=== PATIENT | male | born 1940 | race Caucasian/White ===

== ENCOUNTER 2022-09-17 16:08 | Inpatient (IN) | payer MEDICARE, SELFPAY ==
--- NOTE | ~2022-09-17 | MR_ITS ---
MRI of the brain Clinical History: CVA Technique: Axial and sagittal T1-weighted images were acquired. These were followed by axial T2-weigh do, diffusion weighted, gradient, and FLAIR images. Following intravenous administration of 20 cc Mu ltiHance gadolinium, T1-weighted fat-sat imaging was performed in the axial, sagittal, and coronal pl anes. Findings: There is extensive restricted diffusion involving the left temporal and parietal lobes exte nding to the left insular cortex, compatible with acute infarct in the left MCA distribution. There a re mild background chronic microvascular ischemic changes in the periventricular white matter. No int racranial hemorrhage identified. Ventricles and subarachnoid spaces are mildly dilated. Orbits are unremarkable. Paranasal sinuses and mastoid air cells are clear. Sagittal midline structures are intact. No abnormal postcontrast enhancement. IMPRESSION: Extensive acute infarct involving left temporal and parietal lobes extending to the left insular skyla ex (left MCA distribution). This correlates with findings on CT scan performed yesterday. Mild chronic microvascular ischemic change and mild generalized atrophy. Reviewed, dictated and finalized at location . IMPRESSION: Extensive acute infarct involving left temporal and parietal lobes extending to the left insular cortex (left MCA distribution). This correlates with findings on CT scan performed yesterday. Mild chronic microvascular ischemic change and mild generalized atrophy.
--- NOTE | ~2022-09-17 | XR_ITS ---
EXAMINATION: XR chest 1V DATE: 09/17/2022 16:36 INDICATION: Cerebrovascular accident. TECHNIQUE: A single frontal view of the chest was obtained. COMPARISON: None. FINDINGS: There are mild airspace opacities in lower lung zones. No pleural effusion or pneumothorax. Cardiomegaly is noted. IMPRESSION: 1. Mild airspace opacities in the lower lung zones, likely atelectasis. 2. Cardiomegaly. Reviewed, dictated and finalized at location A.
--- NOTE | ~2022-09-17 | CT_ITS ---
EXAMINATION: CTA brain carotid DATE: 09/17/2022 17:31 INDICATION: stroke TECHNIQUE: Computed tomographic angiography (CTA) of the head and neck was performed with 200 mL Omni paque-350 intravenous contrast. Automated exposure control and iterative reconstruction technique wer e employed. The dose-length product was 2409.51 mGy-cm. Maximum intensity projection and volume rende red 3D-reconstructions were created by the technologist on a separate workstation. COMPARISON: CT brain, same date. FINDINGS: CTA HEAD: No large vessel occlusion, aneurysm, high flow vascular malformation, nidus or extravasation. Persist ent circulation on the left. Anterior and right posterior communicating arteries not well visua lized. Hypoplastic intradural segment of the right vertebral artery. Decreased parenchymal enhancemen t in the posterior left insula and left temporoparietal region. Patent cerebral veins. CTA NECK: Aortic arch and proximal great vessels: Atherosclerotic calcifications at the visualized aortic arch and proximal great vessels. Right common carotid, carotid bifurcation, and internal carotid artery: Calcified plaque at the bifur cation.There is 0% stenosis of the proximal right internal carotid artery relative to normal distal a rtery lumen diameter (NASCET criteria). Left common carotid, carotid bifurcation, and internal carotid artery: Calcified plaque at the bifurc ation.There is 0% stenosis of the proximal left internal carotid artery relative to normal distal art jose martin lumen diameter (NASCET criteria). Vertebral arteries: No significant plaque or stenosis. Other findings: Patchy groundglass opacity in the right mid lung, incompletely visualized, at the inf erior margin of the [id number]. Calcified left hilar and mediastinal nodes. Right thyroid gland hy podensities, measuring less than 1 cm, no additional imaging warranted. Degenerative changes in the s pine. Congenitally narrow appearing spinal canal. IMPRESSION: 1. No acute large vessel occlusion. No significant vertebral or carotid artery stenosis. 2. Acute left MCA territory infarct. 3. Pulmonary opacities may reflect atelectasis, edema, or infection. Reviewed, dictated and finalized at location K.
--- NOTE | ~2022-09-17 | CT_ITS ---
EXAMINATION: CT brain wo con DATE: 09/17/2022 16:35 INDICATION: Possible stroke TECHNIQUE: Computed tomography (CT) of the head was performed without intravenous contrast. Sagittal and coronal reconstructions were performed. The mA was adjusted according to patient size. Iterative reconstruction technique was employed. The dose-length product was 605.33 mGy-cm. COMPARISON: None FINDINGS: There appears to be loss of tadeo-white matter differentiation along the left temporoparietal region a nd posterior insula suspicious for acute infarct in the left middle cerebral artery vascular distribu tion. No acute intracranial hemorrhage or abnormal extra axial fluid collection. Ventricles are ayush l and symmetric. No mass/mass effect. Intracranial calcified cerebral atherosclerosis is noted. The o rbits, paranasal sinuses and mastoid air cells are normal. IMPRESSION: 1. Loss of tadeo-white matter differentiation in the left temporal parietal region and posterior insul a suspicious for acute infarct in the left middle cerebral artery vascular distribution. Reviewed, dictated and finalized at location B. IMPRESSION: 1. Loss of tadeo-white matter differentiation in the left temporal parietal joe on and posterior insula suspicious for acute infarct in the left middle cerebra l artery vascular distribution.
[2022-09-17 16:10] VITALS: BP 164/88; PULSE 82; RESP 16; TEMP 36.3; O2SAT 98
--- NOTE | 2022-09-17 16:18 | ECG_ITS ---
Measurements Intervals [place] Rate: 72 P: TN: 0 QRS: -53 QRSD: 138 T: -9 QT: 402 QTc: 441 Interpretive Statements ATRIAL FIBRILLATION RIGHT BUNDLE BRANCH BLOCK LEFT ANTERIOR FASCICULAR BLOCK BASELINE ARTIFACT- I, II, III, AVR, AVL, AVF ABNORMAL ECG NO PREVIOUS ECG AVAILABLE FOR COMPARISON Electronically Signed On 09-17-2022 16:51:17 CDT by Raj Flood D.O.
[2022-09-17 16:50] VITALS: BP 160/75; PULSE 77; RESP 22; O2SAT 98
[2022-09-17 17:10] LABS: Alanine Aminotransferase 22 U/L (6-50); Albumin Level 4.3 g/dL (3.5-5.1); Alkaline Phosphatase 81 U/L (38-126); Anion Gap 4 mmol/L (8-16); Aspartate Amino Transferase 30 U/L (17-59); Bilirubin,Total 0.7 mg/dL (0.2-1.3); Blood Urea Nitrogen 12 mg/dL (9-20); Calcium 9.2 mg/dL (8.4-10.2); Carbon Dioxide 30 mmol/L (22-30); Chloride 101 mmol/L (98-107); Estimated Glomerular Filt Rate > 60; Glucose 116 mg/dL (65-110); Potassium 4.2 mmol/L (3.4-5.0); Sodium 135 mmol/L (137-145)
[2022-09-17 17:12] LABS: Basophils Percent Auto 0.3 % (0.2-1.2); Eosinophils Percent Auto 0.5 % (0-4.4); Hematocrit 41.4 % (42.0-52.0); Immature Granulocyte Absolute 0.05 K/mm3 (0.00-0.031); Immature Granulocyte Percent A 0.7 % (0-0.5); Lymphocytes Absolute Auto 1.02 K/mm3 (0.9-3.2); Lymphocytes Percent Auto 13.7 % (18.3-44.2); Mean Corpuscular HGB Conc 31.4 g/dl (32-36); Mean Corpuscular Hemoglobin 27.5 pg (26-34); Mean Corpuscular Volume 87.7 fl (80-100); Monocytes Absolute Auto 0.7 K/mm3 (0.1-0.6); Monocytes Percent Auto 9.9 % (2.6-8.5); Neutrophils Absolute Auto 5.6 K/mm3 (1.3-6.7); Neutrophils Percent Auto 74.9 % (45.5-73.1); Platelet Count Result 264 k/mm3 (150-375); Red Blood Count 4.72 M/mm3 (4.6-6.20); Red Cell Distribution Width 14.3 % (11.5-14.5); White Blood Count 7.5 K/mm3 (4.5-10.0)
[2022-09-17 17:18] LABS: INR 1.6; Prothrombin Time 18.3 Seconds (11.1-14.7)
[2022-09-17 17:19] LABS: Partial Thromboplastin Time 83.7 SECONDS (22.3-36.8)
--- NOTE | 2022-09-17 17:21 | ED.NEUROSD ---
HPI - Neuro Symptoms/Deficit General Chief Complaint: Suspected CVA Stated Complaint: possible stroke Time Seen by Provider: 09/17/22 16:51 History of Present Illness HPI Narrative: 82-year-old male presented to the emergency department for evaluation of suspected stroke. Daughter called the patient today and found that he was altered. Last time the patient was seen normal was Saturday. Patient is having some word finding difficulty but has no focal numbness or weakness. Patient denies any falls or injuries. Patient denies any associated abdominal chest pain or shortness of breath. Related Data Allergies Allergy/AdvReac Type Severity Reaction Status Date / Time No Known Allergies Allergy Mild Unverified 02/15/14 10:54 Review of Systems Review of Systems: All systems reviewed & are unremarkable except as noted in HPI and below Exam Narrative: APPEARANCE: Well appearing, no pain, no distress, well-nourished. HEAD: normocephalic, atraumatic. EYES: PERRLA/EOMI, conjunctivae clear. Visual cortez intact NOSE: Normal no drainage EARS:TMS clear with good light reflex. RESPIRATORY: Airway patent, respirations nonlabored. Clear to auscultation bilaterally, no rales, rhonchi, wheezing. CARDIOVASCULAR: Regular rate and rhythm without murmurs rubs or gallops. ABDOMINAL: Soft, nontender, nondistended, normal bowel sounds MUSCULOSKELETAL: Moves all extremities. Strength/ROM intact, No edema, No calf tenderness. NEURO: Alert. Cranial nerves intact. Reflexes. Patient does have word finding difficulty and was having difficulty reading. Patient was unable to identify objects on the NIH stroke pictures SKIN: Warm, dry. Normal Color Course Course Emergency Course: 82-year-old male presenting to the ED for evaluation of stroke symptoms with his last known normal being Saturday. Patient CT showed evidence of acute infarct in the left middle cerebral artery vascular distribution with loss of tadeo-white matter differentiation in the left temporoparietal region and posterior insular. CTA was ordered and no acute thrombus or large vessel occlusion was identified. Case was discussed with neurology and Dr. Kapadia was comfortable with the plan for admission for MRI. Patient and family were updated on the diagnosis of stroke and treatment plan. Patient is well outside the window for tPA therapy and no large vessel occlusion amenable to embolectomy was identified. Patient was treated with aspirin. Patient was updated on the plan for admission MRI and PT OT. Patient was stable at time of admission. Case was discussed with the hospitalist and patient was a excepted for admission. Vital Signs Vital signs: Vital Signs Temperature 97.3 F L 09/17/22 16:10 Pulse Rate 82 09/17/22 16:10 Respiratory Rate 16 09/17/22 16:10 Blood Pressure 164/88 H 09/17/22 16:10 Pulse Oximetry 98 09/17/22 16:10 Oxygen Delivery Room Air 09/17/22 16:10 Temperature 97.3 F L 09/17/22 16:10 Pulse Rate 77 09/17/22 16:50 Respiratory Rate 22 H 09/17/22 16:50 Blood Pressure 160/75 H 09/17/22 16:50 Pulse Oximetry 98 09/17/22 16:50 Oxygen Delivery Room Air 09/17/22 16:10 MDM - Neuro Symptoms/Deficit Lab Data Attestation: I reviewed the patient's lab results. 09/17/22 16:56 09/17/22 16:56 Labs: Lab Results 09/17/22 09/17/22 09/17/22 Range/Units 16:56 16:56 16:56 WBC 7.5 (4.5-10.0) K/mm3 RBC 4.72 (4.6-6.20) M/mm3 Hgb 13.0 L (14.0-18.0) g/dL Hct 41.4 L (42.0-52.0) % MCV 87.7 (80-100) fl MCH 27.5 (26-34) pg MCHC 31.4 L (32-36) g/dl RDW 14.3 (11.5-14.5) % Plt Count 264 (150-375) k/mm3 MPV 11.0 H (7.4-10.4) fl Immature Gran % (Auto) 0.7 H (0-0.5) % Neut % (Auto) 74.9 H (45.5-73.1) % Lymph % (Auto) 13.7 L (18.3-44.2) % Towns % (Auto) 9.9 H (2.6-8.5) % Eos % (Auto) 0.5 (0-4.4) % Baso % (Auto) 0.3 (0.2-1.2) % Lymph # (Auto) 1.02
[2022-09-17 17:22] LABS: Troponin I < 0.012 ng/mL (0.000-0.034)
--- NOTE | 2022-09-17 19:57 | ED.NEUROSD ---
HPI - Neuro Symptoms/Deficit General Chief Complaint: Suspected CVA Stated Complaint: possible stroke Time Seen by Provider: 09/17/22 16:51 Related Data Allergies Allergy/AdvReac Type Severity Reaction Status Date / Time No Known Allergies Allergy Mild Unverified 02/15/14 10:54 [facility] Past Medical History Medical History (Updated 09/17/22 @ 20:06 by Lesvia Husain NP) Acute CVA (cerebrovascular accident) Atrial fibrillation Cataracts, bilateral Hyperlipidemia Hypertension Neuropathy Spinal stenosis Surgical History Surgical History (Updated 09/17/22 @ 20:20 by Lesvia Husain NP) History of hip replacement, total 4 times History of removal of pigmented skin lesion Family History Family History (Updated 09/17/22 @ 20:15 by Lesvia Husain NP) Sibling Heart failure Social History Social History (Updated 09/17/22 @ 20:13 by Lesvia Husain NP) 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 Course Vital Signs Vital signs: Vital Signs Temperature 36.3 C L 09/17/22 16:10 Pulse Rate 82 09/17/22 16:10 Respiratory Rate 16 09/17/22 16:10 Blood Pressure 164/88 H 09/17/22 16:10 Pulse Oximetry 98 09/17/22 16:10 Oxygen Delivery Room Air 09/17/22 16:10 Temperature 36.3 C L 09/17/22 16:10 Pulse Rate 77 09/17/22 16:50 Respiratory Rate 22 H 09/17/22 16:50 Blood Pressure 160/75 H 09/17/22 16:50 Pulse Oximetry 98 09/17/22 16:50 Oxygen Delivery Room Air 09/17/22 16:10 MDM - Neuro Symptoms/Deficit Lab Data 09/17/22 16:56 09/17/22 16:56 Labs: Lab Results 09/17/22 09/17/22 09/17/22 Range/Units 16:56 16:56 16:56 WBC 7.5 (4.5-10.0) K/mm3 RBC 4.72 (4.6-6.20) M/mm3 Hgb 13.0 L (14.0-18.0) g/dL Hct 41.4 L (42.0-52.0) % MCV 87.7 (80-100) fl MCH 27.5 (26-34) pg MCHC 31.4 L (32-36) g/dl RDW 14.3 (11.5-14.5) % Plt Count 264 (150-375) k/mm3 MPV 11.0 H (7.4-10.4) fl Immature Gran % (Auto) 0.7 H (0-0.5) % Neut % (Auto) 74.9 H (45.5-73.1) % Lymph % (Auto) 13.7 L (18.3-44.2) % [place] % (Auto) 9.9 H (2.6-8.5) % Eos % (Auto) 0.5 (0-4.4) % Baso % (Auto) 0.3 (0.2-1.2) % Lymph # (Auto) 1.02 (0.9-3.2) K/mm3 [place] # (Auto) 0.7 H (0.1-0.6) K/mm3 Eos # (Auto) 0.0 (0-0.3) K/mm3 Baso # (Auto) 0.0 (0.0-0.1) K/mm3 Abs Immat Gran (auto) 0.05 H (0.00-0.031) K/mm3 Absolute Neuts (auto) 5.6 (1.3-6.7) K/mm3 Absolute Nucleated RBC 0.0 (0.0-0.012) K/mm3 Nucleated RBC % 0.0 (0.0-0.2) % PT 18.3 H (11.1-14.7) Seconds INR 1.6 APTT 83.7 H (22.3-36.8) SECONDS Sodium 135 L (137-145) mmol/L Potassium 4.2 (3.4-5.0) mmol/L Chloride 101 (98-107) mmol/L Carbon Dioxide 30 (22-30) mmol/L Anion Gap 4 L (8-16) mmol/L BUN 12 (9-20) mg/dL Creatinine 0.90 (0.7-1.3) mg/dL Estim Creat Clear Calc Not Reportable Estimated GFR > 60 (59 - ) Glucose 116 H (65-110) mg/dL Calcium 9.2 (8.4-10.2) mg/dL Total Bilirubin 0.7 (0.2-1.3) mg/dL AST 30 (17-59) U/L ALT 22 (6-50) U/L Alkaline Phosphatase 81 (38-126) U/L Troponin I < 0.012 (0.000-0.034) ng/mL Total Protein 7.0 (6.3-8.2) g/dL Albumin 4.3 (3.5-5.1) g/dL Discharge Plan Discharge Clinical Impression: Acute CVA (cerebrovascular accident), Atrial fibrillation Patient Disposition: Still a Patient Condition: Stable Follow-up/Referrals: Cory,Saulo Singh MD [Non-Staff] -
--- NOTE | 2022-09-17 20:19 | PC.NURSE ---
attempted report X2 to 3rd med with no answer
--- NOTE | 2022-09-17 20:30 | PC.NURSE ---
Production Staff Worker called and states room for this patient is not clean at this time
[2022-09-17 21:54] VITALS: BP 160/77; PULSE 81; RESP 20; TEMP 36.7; O2SAT 97
[2022-09-17 21:55] VITALS: BMI 39.3
--- NOTE | 2022-09-17 22:00 | ADMGEN ---
This patient, Rufus Scanlon, was admitted to Medical Room 345-01. Patient/family oriented to hospital policies and general routines including ID bracelet, bed and alarms, visiting hours, pain management, procedures, bathroom and other care routines, personal items, smoking policy, room service/diet, and visiting hours. Information on how to activate the Rapid Response Team has been discussed. Patient/Family are encouraged to report perceived risks to care and to ask questions if they do not understand what they are told or what they should do.
[2022-09-18] VITALS (9 sets, daily range): BP systolic 125–172; BP diastolic 71–78; PULSE 69–102; RESP 14–20; TEMP 36.6–36.8; O2SAT 97–100
--- NOTE | 2022-09-18 | ECHO_ITS ---
Patient Info Name: Rufus Scanlon Age: 82 years : 1940 Gender: Male Ht: 69 in Wt: 266 lbs BSA: 2.48 m2 HR: 94 bpm BP: 154 / 78 mmHg Heart Rhythm: Tachycardia Technical Quality: Poor Exam Date: 09/18/2022 11:18 AM Exam Location: [facility] Patient Status: Inpatient Admit Date: 09/17/2022 Staff Ordering Physician: Lesvia Husain NP [employer] Grade Teacher: Rashida Mack RDCS Attending Provider: Addi Lima MD Referring Physician: Lisha AZAR; Exam Type: CA echo dop bubble study w con Study Info Indications - CVA Complete two-dimentional, color flow and Doppler transthoracic echocardiogram is performed with agitated saline and with contrast to opacify the left ventricle and to improve the delineation of the left ventricle endocardial borders. Contrast/Agitated Saline Contrast/Ag. Saline: Agitated Saline Amount: 20.00 ml Administered By: Gabrielle Pavon RDCS Existing IV Access: Yes IV Access Condition: patent with no signs of infiltration Contrast/Ag. Saline: Definity Amount: 7.00 ml Administered By: Gabrielle Pavon RDCS Existing IV Access: Yes IV Access Condition: patent with no signs of infiltration Reason for Poor Study: patient body habitus Summary 1. Left ventricular chamber dimension is normal. 2. Left ventricular systolic function is normal, estimated at >70%. 3. There is mildly increased left ventricular wall thickness. 4. Right ventricular systolic function is normal. 5. Left atrial chamber dimension is severely enlarged. 6. Right atrial chamber dimension is moderately enlarged. 7. Intact interatrial septum visualized by color flow and agitated saline imaging. Negative bubble study. 8. There is mild mitral valve regurgitation. 9. There is mild tricuspid valve regurgitation. 10. There is mild pulmonic regurgitation. 11. The aortic root size at the sinus of Valsalva is dilated. Left Ventricle Left ventricular chamber dimension is normal. Left ventricular systolic function is normal, estimated at >70%. There is mildly increased left ventricular wall thickness. Right Ventricle Right ventricular chamber dimension is normal. Right ventricular systolic function is normal. Left Atria Left atrial chamber dimension is severely enlarged. Right Atria Right atrial chamber dimension is moderately enlarged. Atrial Septum Intact interatrial septum visualized by color flow and agitated saline imaging. Negative bubble study. Aortic Valve The aortic valve is trileaflet. There is no aortic valve stenosis. There is no aortic valve regurgitation. Pulmonic Valve The pulmonic valve is not well visualized. There is mild pulmonic regurgitation. Mitral Valve The mitral valve has normal leaflets. There is no mitral valve stenosis. There is mild mitral valve regurgitation. Tricuspid Valve There is mild tricuspid valve regurgitation. Pericardium/Pleural The pericardium appears epicardial fat pad. There is no pericardial effusion. Aorta The aortic root size at the sinus of Valsalva is dilated. Left Ventricular Outflow Tract Name Value Normal LVOT 2D LVOT
--- NOTE | 2022-09-18 02:08 | PM.IMHP ---
H&P: HPI History of Present Illness Date/Time: 09/17/221954 Chief Complaint: Suspected CVA Narrative: This is an 82-year-old male patient who lives home alone. The patient was brought to the emergency room for suspected stroke. The daughter called the patient today and found that he was altered. The last known normal was on Saturday. The patient was having difficulty finding words. He had no focal weakness.1. Loss of tadeo-white matter differentiation in the left temporal parietal region and posterior insula suspicious for acute infarct in the left middle cerebral artery vascular distribution. Chest x-ray1. Mild airspace opacities in the lower lung zones, likely atelectasis. 2. Cardiomegaly. Head neck CTA read asNo acute large vessel occlusion. No significant vertebral or carotid artery stenosis. 2. Acute left MCA territory infarct. 3. Pulmonary opacities may reflect atelectasis, edema, or infection. Patient is able to answer some questions and his speech is clear for substances however the patient still continues to have word searching. The patient has expressive aphasia. He is able to read without difficulty. However when I asked him his name he is not able to tell me what his name is or his daughter's name.. Head CT was read as?Loss of tadeo-white matter differentiation in the left temporal parietal region and posterior insula suspicious for acute infarct in the left middle cerebral artery vascular distribution. The patient was given aspirin and neurology has been consulted. H&H is 13.0 and 41.4. Patient is being admitted to inpatient status on the date of service of 09/17/2022 Review of Systems Review of Systems: All systems reviewed & are unremarkable except as noted in HPI and below Constitutional: Constitutional: Reports as per HPI and Reports no additional constitutional complaints Eyes: Eyes: Reports as per HPI and Reports no additional eye complaints ENT: Reports system reviewed and no additional complaints, except as documented and Reports Normal hearing present Cardiovascular: Cardiovascular: Reports no additional cardiovascular complaints Respiratory: Respiratory: Reports no additional respiratory complaints and Reports no additional respiratory complaints Gastrointestinal: Gastrointestinal: Reports as per HPI and Reports no additional gastrointestinal complaints Musculoskeletal: Musculoskeletal: Reports no additional musculoskeletal complaints Integumentary/Breasts: Skin/Breast: Reports system reviewed and no additional complaints, except as docu and Reports as per HPI Neurologic: Reports system reviewed and no additional complaints, except as documented, Reports as per HPI and Reports Normal hearing present Psychiatric: Psychiatric: Reports no additional psychiatric complaints and Reports as per HPI Endocrine: Endocrine: Reports no additional endocrine complaints Hematologic/Lymphatic: Hematologic/Lymphatic: Reports no additional hematologic/lymphatic complaints Allergic/Immunologic: Allergic/Immunologic: Reports no additional allergic/immunologic complaints [facility] Past Medical History Medical History (Updated 09/17/22 @ 20:06 by Lesvia Husain NP) Acute CVA (cerebrovascular accident) Atrial fibrillation Cataracts, bilateral Hyperlipidemia Hypertension Neuropathy Spinal stenosis Surgical History Surgical History (Updated 09/17/22 @ 20:20 by Lesvia Husain NP) History of hip replacement, total 4 times History of removal of pigmented skin lesion Family History Family History Sibling Heart failure Social History Social History (Updated 09/18/22 @ 02:17 by Lesvia Husain NP) Social History: The patient has two adopted children and is . He lives alone . He has been to [place] for rehab in the past and would like to go back to [place] if able. 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 Code status full code Smoki
[2022-09-18 06:07] LABS: Basophils Percent Auto 0.5 % (0.2-1.2); Eosinophils Absolute Auto 0.1 K/mm3 (0-0.3); Eosinophils Percent Auto 1.4 % (0-4.4); Hemoglobin 11.5 g/dL (14.0-18.0); Immature Granulocyte Absolute 0.03 K/mm3 (0.00-0.031); Immature Granulocyte Percent A 0.5 % (0-0.5); Lymphocytes Absolute Auto 0.88 K/mm3 (0.9-3.2); Mean Corpuscular HGB Conc 31.9 g/dl (32-36); Mean Corpuscular Hemoglobin 27.5 pg (26-34); Mean Corpuscular Volume 86.1 fl (80-100); Mean Platelet Volume 10.7 fl (7.4-10.4); Monocytes Absolute Auto 0.9 K/mm3 (0.1-0.6); Monocytes Percent Auto 13.5 % (2.6-8.5); Neutrophils Absolute Auto 4.4 K/mm3 (1.3-6.7); Neutrophils Percent Auto 70.1 % (45.5-73.1); Platelet Count Result 229 k/mm3 (150-375); Red Blood Count 4.18 M/mm3 (4.6-6.20); Red Cell Distribution Width 14.2 % (11.5-14.5); White Blood Count 6.3 K/mm3 (4.5-10.0)
[2022-09-18 06:18] LABS: Alanine Aminotransferase 18 U/L (6-50); Albumin Level 3.6 g/dL (3.5-5.1); Alkaline Phosphatase 70 U/L (38-126); Anion Gap 3 mmol/L (8-16); Aspartate Amino Transferase 27 U/L (17-59); Bilirubin,Total 0.8 mg/dL (0.2-1.3); Blood Urea Nitrogen 9 mg/dL (9-20); Calcium 8.8 mg/dL (8.4-10.2); Carbon Dioxide 29 mmol/L (22-30); Chloride 99 mmol/L (98-107); Estimated CRCL calculation 81 ml/min; Estimated Glomerular Filt Rate > 60; Glucose 95 mg/dL (65-110); Lactic Acid Reflex 0.8 mmol/L (0.7-2.0); Magnesium 1.9 mg/dL (1.6-2.3); Sodium 131 mmol/L (137-145)
--- NOTE | 2022-09-18 09:05 | WPDNEURCNPN ---
Assessment and Plan Assessment and plan (1) Acute CVA (cerebrovascular accident): Code(s): I63.9 - Cerebral infarction, unspecified Status: Acute (2) Atrial fibrillation: Code(s): I48.91 - Unspecified atrial fibrillation Status: Acute (3) Hypertension: Code(s): I10 - Essential (primary) hypertension Status: Acute (4) Hyperlipidemia: Code(s): E78.5 - Hyperlipidemia, unspecified Status: Acute Plan Rufus Scanlon is a 82 year old male with a history of atrial fibrillation, hypertension, hyperlipidemia presenting for evaluation of stroke. CT head shows area of hypodensity in the L MCA region, concerning for stroke. CTA was negative. Possibly related to atrial fibrillation in the setting of anticoagulation non-compliance. - MRI brain w/o contrast - Surface echocardiogram - Continue Eliquis 5mg BID - Check LDL, may need higher statin dose - ST/PT/OT Consult date: 09/18/22 Reason for consult: Stroke HPI: Rufus Scanlon is a 82 year old male with a history of atrial fibrillation, hypertension, hyperlipidemia presenting for evaluation of stroke. Patient's last known normal was on 09/15/ Daughter noted that patient was altered on 09/17. Patient was having word finding difficulty but no other significant weakness or focal symptoms. In the ED his blood pressure was in the 170s. CT head showed loss of tadeo-white matter differentiation in the left temporal parietal region and the posterior insula, concerning for acute L MCA infarct. CTA showed no evidence of large vessel occlusion or stenosis. Patient takes Eliquis for his atrial fibrillation. He reports good compliance with this. However, when reviewing his pill box with daughter, there is no Eliquis allotted for the rest of the week. Daughter reports that patient is in charge of his medications. He also takes rosuvastatin 5mg daily. Review of Systems Review of Systems: patient is aphasic ROS unobtainable: Yes unobtainable due to medical condition PMFSH Past Medical History Medical History Acute CVA (cerebrovascular accident) Atrial fibrillation Cataracts, bilateral Hyperlipidemia Hypertension Neuropathy Spinal stenosis Surgical History Surgical History History of hip replacement, total 4 times History of removal of pigmented skin lesion Family History Family History Sibling Heart failure Social History Social History Social History: The patient has two adopted children and is . He lives alone . He has been to [facility] for rehab in the past and would like to go back to [facility] if able. 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 Code status full code Smoking status: Former smoker Alcohol intake: unknown Substance use: unknown Spiritual care concerns: No Meds Home Medications and Allergies Home Medications Medication Instructions Recorded Confirmed Type diltiazem HCl 360 mg 360 mg PO DAILY 09/18/22 09/18/22 History capsule,extended release 24 hr (Cardizem CD) gabapentin 400 mg capsule 400 mg PO TID 09/18/22 09/18/22 History hydralazine 25 mg tablet 25 mg PO QID 09/18/22 09/18/22 History metoprolol succinate 25 mg 25 mg PO DAILY 09/18/22 09/18/22 History tablet,extended release 24 hr rosuvastatin 5 mg tablet 5 mg PO HS 09/18/22 09/18/22 History Allergies Allergy/AdvReac Type Severity Reaction Status Date / Time No Known Allergies Allergy Mild Unverified 02/15/14 10:54 Vital Signs Vital Signs - 24 hr 09/17/22 16:10 09/17/22 16:50 09/17/22 21:54 Temperature 36.3 C L 36.7 C Pulse Rate 82 77 81 Respiratory Rate 16 22 H 20 Blood Pressure 164/88 H 160/75 H 160/77 H Pulse Oximetry 98 98 97 Oxygen Delivery Room Air 09/18/22 00:00 09/18/22 04:00 09/18
[2022-09-18] MEDS: ASPIRIN 81 MG ENTERIC TABLET PO (10:14)
[2022-09-18 10:48] LABS: Cholesterol 106 mg/dL (0-200); HDL Direct 35 mg/dL; Triglycerides 73 mg/dL (<150)
[2022-09-18 11:00] LABS: LDL Cholesterol Direct 54 mg/dL
[2022-09-18] MEDS: PERFLUTREN LIPID MICROSPHERES 1.5 ML VIAL DILUTED TO 10 ML TOTAL VOLUME IV PUSH (11:55)
--- NOTE | 2022-09-18 12:00 | PCSTNOTE ---
Please refer to the Bedside Swallow Evaluation in the EMR. Please note, silent aspiration cannot be ruled out at bedside.
[2022-09-18] MEDS: ROSUVASTATIN 10 MG TABLET 20 MG PO (12:14)
[2022-09-18] MEDS: METOPROLOL SUCCINATE EXT REL 25 MG TABCR PO (12:14)
[2022-09-18] MEDS: GABAPENTIN 400 MG CAPSULE PO ×2 (13:17→20:01)
--- NOTE | 2022-09-18 16:57 | PM.IMPN ---
Progress Note: A&P Assessment and Plan (1) Acute CVA (cerebrovascular accident): Code(s): I63.9 - Cerebral infarction, unspecified Status: Acute Assessment and Plan: He has expressive and receptive aphasia. Abnormal CT head noted on admission patient's last known normal was Saturday. continue pt/ot/ and speech therapy evaluation Swallow study at bedside negative -continue regular consistency and thin liquids Speech therapy for communication continue Neurology has been consulted reportedly patient had a colonoscopy on Saturday of last week and Eliquis had been on hold since 2 days prior. Report of possible colonic mass on colonoscopy per family. Attempting to obtain records. Eliquis 5 mg b.i.d. resumed for now continue to monitor CBC MRI of the brain shows extensive acute infarct involving left temporal and parietal lobes extending to the left insular cortex also noted on CT scan continue blood pressure management. current BP 125/71. Continue metoprolol and resume other antihypertensives. Check lipid panel. Rosuvastatin increased high-dose 20 mg p.o. daily monitor on telemetry (2) Hypertension: Code(s): I10 - Essential (primary) hypertension Status: Chronic Assessment and Plan: P.r.n. hydralazine and continue metoprolol bid. (3) Hyperlipidemia: Code(s): E78.5 - Hyperlipidemia, unspecified Status: Chronic Assessment and Plan: Patient's home medications have not been reconciled. (4) Atrial fibrillation: Code(s): I48.91 - Unspecified atrial fibrillation Status: Acute Assessment and Plan: Patient's anticoagulation has been held due to colonoscopy. Resume Eliquis BID. continue metoprolol. Resume diltiazem. Time Spent With Patient Time with patient: 25 - 35 minutes Subjective Date/time seen: 09/18/22 16:57 Interval history: Patient found sitting up in the bed with granddaughters at bedside. He reports no complaints at this time. Review of Systems Review of Systems: All systems reviewed & are unremarkable except as noted in HPI and below Exam Narrative: General: No acute distress.? Morbidly obese older adult male sitting up in the bed. Nontoxic appearing neuro/Psych: Awake. Patient does not answer most orientation questions. Expressive and receptive aphasia noted. clear speech. No pronator drift, facial droop, tongue deviation, or impaired [id number]. Full strength bilateral upper and lower extremities. gait not tested Skin: Skin fair, warm, dry and intact without rashes or lesions. No open wounds. Good turgor.? HEENT: Normocephalic. Sclera is non-icteric. PERRL. EOM intact without nystagmus. Oral mucosa pink and moist. oropharynx unremarkable Neck: No JVD. Heart: S1 and S2 regular rate and rhythm. No murmurs, gallops, or rubs auscultated. Chest: Respirations even and unlabored. Lung sounds are clear to auscultation without wheezes, rhonchi, or rales. Abdomen: Soft, obese and non-tender to palpation.? Bowel sounds present in all 4 quadrants. No guarding. Extremities:? No edema, erythema or calf tenderness. Grossly normal ROM. Objective Data Vital Signs Vital Signs: Vital Signs - 24 hr 09/17/22 21:54 09/18/22 00:00 09/18/22 04:00 Temperature 98.0 F Pulse Rate 81 69 77 Respiratory Rate 20 Blood Pressure 160/77 H Pulse Oximetry 97 Oxygen Delivery 09/18/22 06:00 09/18/22 07:44 09/18/22 08:00 Temperature 98.0 F Pulse Rate 84 98 Respiratory Rate 20 Blood Pressure 154/78 H Pulse Oximetry 97 Oxygen Delivery Room Air 09/18/22 09:42 09/18/22 12:14 09/18/22 14:00 Temperature 98.2 F Pulse Rate 102 H 80 Respiratory Rate 14 Blood Pressure 125/71 Pulse Oximetry 98 Oxygen Delivery Room Air 09/18/22 16:00 Temperature Pulse Rate 82 Respiratory Rate Blood Pressure Pulse Oximetry Oxygen Delivery Intake/Output Intake/Output: Intake & Output 09/15/22 09/16/22
[2022-09-18] MEDS: APIXABAN 5 MG TABLET PO (20:01)
[2022-09-18 21:00] LABS: Glucose Point of Care 112 mg/dl (65-105)
[2022-09-19] VITALS (10 sets, daily range): BP systolic 121–166; BP diastolic 72–96; PULSE 73–102; RESP 14–20; TEMP 36.1–36.6; O2SAT 94–98
[2022-09-19] MEDS: GABAPENTIN 400 MG CAPSULE PO ×3 (05:49→21:03)
[2022-09-19] MEDS: ROSUVASTATIN 10 MG TABLET 20 MG PO (10:13)
[2022-09-19] MEDS: APIXABAN 5 MG TABLET PO ×2 (10:13→21:03)
[2022-09-19] MEDS: dilTIAZem HCL CD 180 MG CAP.ER.24H 360 MG PO (10:14)
[2022-09-19] MEDS: METOPROLOL SUCCINATE EXT REL 25 MG TABCR PO (10:14)
--- NOTE | 2022-09-19 11:05 | PM.IMPN ---
Progress Note: A&P Assessment and Plan (1) Acute CVA (cerebrovascular accident): Code(s): I63.9 - Cerebral infarction, unspecified Status: Acute Assessment and Plan: He has expressive and receptive aphasia. Abnormal CT head noted on admission patient's last known normal was Saturday. continue pt/ot/ and speech therapy evaluation Swallow study at bedside negative -continue regular consistency and thin liquids Speech therapy for communication continue Neurology consulted and appreciate recommendations. reportedly patient had a colonoscopy on Saturday of last week and Eliquis had been on hold since 2 days prior. Report of possible colonic mass on colonoscopy per family. Attempting to obtain records. Eliquis 5 mg b.i.d. resumed for now continue to monitor CBC MRI of the brain shows extensive acute infarct involving left temporal and parietal lobes extending to the left insular cortex also noted on CT scan Continue blood pressure management. current BP 125/71. Continue metoprolol and resume other antihypertensives. Rosuvastatin increased high-dose 20 mg p.o. daily monitor on telemetry (2) Hypertension: Code(s): I10 - Essential (primary) hypertension Status: Chronic Assessment and Plan: P.r.n. hydralazine and continue metoprolol bid. (3) Hyperlipidemia: Code(s): E78.5 - Hyperlipidemia, unspecified Status: Chronic Assessment and Plan: Patient's home medications have not been reconciled. (4) Atrial fibrillation: Code(s): I48.91 - Unspecified atrial fibrillation Status: Acute Assessment and Plan: Patient's anticoagulation has been held due to colonoscopy. Resume Eliquis BID. continue metoprolol. Resume diltiazem. Time Spent With Patient Time with patient: 15 - 25 minutes Subjective Date/time seen: 09/19/22 11:05 No new complaints or overnight events. Family is at bedside and reports he communicates better with simple questions. Review of Systems Review of Systems: All systems reviewed & are unremarkable except as noted in HPI and below Exam Narrative: General: No acute distress.? Morbidly obese older adult male sitting up in the bed. Nontoxic appearing neuro/Psych: Awake. Patient does not answer most orientation questions. Expressive and receptive aphasia noted. clear speech. No pronator drift, facial droop, tongue deviation, or impaired [id number]. Full strength bilateral upper and lower extremities. gait not tested Skin: Skin fair, warm, dry and intact without rashes or lesions. No open wounds. Good turgor.? HEENT: Normocephalic. Sclera is non-icteric. PERRL. EOM intact without nystagmus. Oral mucosa pink and moist. oropharynx unremarkable Neck: No JVD. Heart: S1 and S2 regular rate and rhythm. No murmurs, gallops, or rubs auscultated. Chest: Respirations even and unlabored. Lung sounds are clear to auscultation without wheezes, rhonchi, or rales. Abdomen: Soft, obese and non-tender to palpation.? Bowel sounds present in all 4 quadrants. No guarding. Extremities:? No edema, erythema or calf tenderness. Grossly normal ROM. Objective Data Vital Signs Vital Signs: Vital Signs - 24 hr 09/18/22 12:14 09/18/22 14:00 09/18/22 16:00 Temperature 98.2 F Pulse Rate 102 H 80 82 Respiratory Rate 14 Blood Pressure 125/71 Pulse Oximetry 98 09/18/22 20:00 09/18/22 21:37 09/19/22 00:00 Temperature 97.9 F Pulse Rate 85 87 90 Respiratory Rate 20 Blood Pressure 172/71 H Pulse Oximetry 100 09/19/22 04:00 09/19/22 06:00 09/19/22 10:14 Temperature 97.9 F Pulse Rate 75 94 87 Respiratory Rate 18 Blood Pressure 166/96 H Pulse Oximetry 94 Intake/Output Intake/Output: Intake & Output 09/16/22 09/17/22 09/18/22 09/19/22 23:59 23:59 23:59 23:59 Intake Total 600 Output Total 400 400 Balance 200 -400 Meds/Results Medications: Active Medications Generic Name Dose Route Start Last Admin
[2022-09-19] MEDS: hydrALAZINE HCL 25 MG TABLET PO ×3 (12:27→21:03)
[2022-09-19 12:28] LABS: Anion Gap 3 mmol/L (8-16); Blood Urea Nitrogen 10 mg/dL (9-20); Carbon Dioxide 30 mmol/L (22-30); Chloride 100 mmol/L (98-107); Estimated CRCL calculation 73 ml/min; Estimated Glomerular Filt Rate > 60; Glucose 115 mg/dL (65-110); Sodium 133 mmol/L (137-145)
[2022-09-19 21:24] LABS: Glucose Point of Care 103 mg/dl (65-105)
[2022-09-20] VITALS (10 sets, daily range): BP systolic 129–142; BP diastolic 62–76; PULSE 64–86; RESP 18; TEMP 36.4–37.7; O2SAT 97
[2022-09-20] MEDS: GABAPENTIN 400 MG CAPSULE PO ×3 (06:11→21:04)
[2022-09-20 06:32] LABS: Hematocrit 40.9 % (42.0-52.0); Mean Corpuscular HGB Conc 31.8 g/dl (32-36); Mean Corpuscular Hemoglobin 27.7 pg (26-34); Mean Platelet Volume 10.9 fl (7.4-10.4); Platelet Count Result 223 k/mm3 (150-375)
[2022-09-20 06:42] LABS: Anion Gap 5 mmol/L (8-16); Blood Urea Nitrogen 12 mg/dL (9-20); Calcium 8.5 mg/dL (8.4-10.2); Carbon Dioxide 28 mmol/L (22-30); Chloride 104 mmol/L (98-107); Estimated CRCL calculation 73 ml/min; Estimated Glomerular Filt Rate > 60; Glucose 97 mg/dL (65-110); Potassium 3.8 mmol/L (3.4-5.0); Sodium 137 mmol/L (137-145)
[2022-09-20] MEDS: METOPROLOL SUCCINATE EXT REL 25 MG TABCR PO (08:26)
[2022-09-20] MEDS: dilTIAZem HCL CD 180 MG CAP.ER.24H 360 MG PO (08:27)
[2022-09-20] MEDS: APIXABAN 5 MG TABLET PO ×2 (08:27→21:04)
[2022-09-20] MEDS: ROSUVASTATIN 10 MG TABLET 20 MG PO (08:27)
[2022-09-20] MEDS: hydrALAZINE HCL 25 MG TABLET PO ×4 (08:27→21:04)
[2022-09-20 08:28] LABS: Glucose Point of Care 109 mg/dl (65-105)
[2022-09-20 12:10] LABS: Glucose Point of Care 146 mg/dl (65-105)
--- NOTE | 2022-09-20 16:37 | PM.IMPN ---
Progress Note: A&P Assessment and Plan (1) Acute CVA (cerebrovascular accident): Code(s): I63.9 - Cerebral infarction, unspecified Status: Acute Assessment and Plan: He has expressive and receptive aphasia. Abnormal CT head noted on admission patient's last known normal was Saturday. continue pt/ot/ and speech therapy evaluation Swallow study at bedside negative -continue regular consistency and thin liquids Speech therapy for communication continue Neurology consulted and appreciate recommendations. reportedly patient had a colonoscopy on Saturday of last week and Eliquis had been on hold since 2 days prior. Report of possible colonic mass on colonoscopy per family. Attempting to obtain records. Eliquis 5 mg b.i.d. resumed for now continue to monitor CBC MRI of the brain shows extensive acute infarct involving left temporal and parietal lobes extending to the left insular cortex also noted on CT scan Continue blood pressure management. current BP 125/71. Continue metoprolol and resume other antihypertensives. Rosuvastatin increased high-dose 20 mg p.o. daily monitor on telemetry Patient plans to be discharged into rehab facility. Awaiting placement at this time. Continuing therapy. (2) Hypertension: Code(s): I10 - Essential (primary) hypertension Status: Chronic Assessment and Plan: P.r.n. hydralazine and continue metoprolol bid. (3) Hyperlipidemia: Code(s): E78.5 - Hyperlipidemia, unspecified Status: Chronic Assessment and Plan: Patient's home medications have not been reconciled. (4) Atrial fibrillation: Code(s): I48.91 - Unspecified atrial fibrillation Status: Acute Assessment and Plan: Patient's anticoagulation has been held due to colonoscopy. Resume Eliquis BID. continue metoprolol. Resume diltiazem. Subjective Date/time seen: 09/20/22 16:37 Interval history: patient is unable to answer many questions and it appears he is having difficulty finding his words he is able to follow directions and complete tasks when you ask him to but when he answers questions his responses are not appropriate to questions being asked. patient has word salad . Review of Systems Review of Systems: All systems reviewed & are unremarkable except as noted in HPI and below Exam Narrative: GENERAL: Comfortable, no acute distress HENMT: moist mucous membranes EYES: EOM intact b/l NECK: no lymphadenopathy RESPIRATORY: clear to auscultation CARDIO: RRR GI: soft, nontender, bowel sounds present SKIN: no rashes EXTREMITIES: no edema, redness or tenderness NEURO: strength 5/5 bilaterally upper and lower extremities, no facial droop Objective Data Vital Signs Vital Signs: Vital Signs - 24 hr 09/19/22 20:00 09/19/22 20:00 09/19/22 21:36 Temperature 97.0 F L Pulse Rate 75 82 73 Respiratory Rate 14 20 Blood Pressure 121/72 Pulse Oximetry 96 98 Oxygen Delivery Room Air 09/20/22 00:00 09/20/22 04:00 09/20/22 06:00 Temperature 97.5 F L Pulse Rate 67 64 69 Respiratory Rate 18 Blood Pressure 142/76 H Pulse Oximetry 97 Oxygen Delivery 09/20/22 08:26 09/20/22 08:20 09/20/22 08:00 Temperature Pulse Rate 70 86 Respiratory Rate Blood Pressure Pulse Oximetry Oxygen Delivery Room Air 09/20/22 16:04 Temperature 100 F H Pulse Rate 70 Respiratory Rate 18 Blood Pressure 129/62 Pulse Oximetry 97 Oxygen Delivery Intake/Output Intake/Output: Intake & Output 09/17/22 09/18/22 09/19/22 09/20/22 23:59 23:59 23:59 23:59 Intake Total 600 1220 980 Output Total 982 736 8200 Balance 200 820 -370 Meds/Results Medications: Active Medications Generic Name Dose Route Start Last Admin Trade Name Freq PRN Reason Stop Dose Admin Apixaban 5 mg 09/18/22 21:00 09/20/22 08:27 Apixaban 5 Mg Tablet PO 5 mg Q12HR GABRIELLE Administration Diltiazem HCl 360 mg 09/19
[2022-09-21] VITALS (11 sets, daily range): BP systolic 110–151; BP diastolic 59–69; PULSE 62–101; RESP 18–20; TEMP 36.2–36.8; O2SAT 96–99
[2022-09-21] MEDS: GABAPENTIN 400 MG CAPSULE PO ×3 (05:18→21:34)
[2022-09-21 08:16] LABS: Glucose Point of Care 98 mg/dl (65-105)
[2022-09-21] MEDS: APIXABAN 5 MG TABLET PO ×2 (08:24→21:34)
[2022-09-21] MEDS: METOPROLOL SUCCINATE EXT REL 25 MG TABCR PO (08:24)
[2022-09-21] MEDS: hydrALAZINE HCL 25 MG TABLET PO ×4 (08:25→21:34)
[2022-09-21] MEDS: ROSUVASTATIN 10 MG TABLET 20 MG PO (08:25)
[2022-09-21] MEDS: dilTIAZem HCL CD 180 MG CAP.ER.24H 360 MG PO (08:25)
[2022-09-21 12:39] LABS: Glucose Point of Care 99 mg/dl (65-105)
--- NOTE | 2022-09-21 15:36 | PM.IMPN ---
Progress Note: A&P Assessment and Plan (1) Acute CVA (cerebrovascular accident): Code(s): I63.9 - Cerebral infarction, unspecified Status: Acute Assessment and Plan: He has expressive and receptive aphasia. Abnormal CT head noted on admission patient's last known normal was Saturday. continue pt/ot/ and speech therapy evaluation Swallow study at bedside negative -continue regular consistency and thin liquids Speech therapy for communication continue Neurology consulted and appreciate recommendations. reportedly patient had a colonoscopy on Saturday of last week and Eliquis had been on hold since 2 days prior. Report of possible colonic mass on colonoscopy per family. Attempting to obtain records. Eliquis 5 mg b.i.d. resumed for now continue to monitor CBC MRI of the brain shows extensive acute infarct involving left temporal and parietal lobes extending to the left insular cortex also noted on CT scan Continue blood pressure management. current BP 125/71. Continue metoprolol and resume other antihypertensives. Rosuvastatin increased high-dose 20 mg p.o. daily monitor on telemetry Patient plans to be discharged into rehab facility. Awaiting placement at this time. Continuing therapy. (2) Hypertension: Code(s): I10 - Essential (primary) hypertension Status: Chronic Assessment and Plan: P.r.n. hydralazine and continue metoprolol bid. (3) Hyperlipidemia: Code(s): E78.5 - Hyperlipidemia, unspecified Status: Chronic Assessment and Plan: Patient's home medications have not been reconciled. (4) Atrial fibrillation: Code(s): I48.91 - Unspecified atrial fibrillation Status: Acute Assessment and Plan: Patient's anticoagulation has been held due to colonoscopy. Resume Eliquis BID. continue metoprolol. Resume diltiazem. Subjective Date/time seen: 09/21/22 15:36 Interval history: Patient's son-in-law in for entering the room at bedside. Patient doing well today with no new complaints. Patient still having aphasia. Review of Systems Review of Systems: All systems reviewed & are unremarkable except as noted in HPI and below Exam Narrative: GENERAL: Comfortable, no acute distress HENMT: moist mucous membranes EYES: EOM intact b/l NECK: no lymphadenopathy RESPIRATORY: clear to auscultation CARDIO: RRR GI: soft, nontender, bowel sounds present SKIN: no rashes EXTREMITIES: no edema, redness or tenderness NEURO: strength 5/5 bilaterally upper and lower extremities, no facial droop Objective Data Vital Signs Vital Signs: Vital Signs - 24 hr 09/20/22 16:04 09/20/22 16:00 09/20/22 20:00 Temperature 100 F H Pulse Rate 70 78 70 Respiratory Rate 18 18 Blood Pressure 129/62 Pulse Oximetry 97 97 Oxygen Delivery Room Air 09/20/22 22:35 09/20/22 20:00 09/21/22 00:00 Temperature 98.0 F Pulse Rate 71 78 78 Respiratory Rate 18 Blood Pressure 133/76 Pulse Oximetry 97 Oxygen Delivery 09/21/22 04:00 09/21/22 06:00 09/21/22 08:24 Temperature 97.1 F L Pulse Rate 70 75 76 Respiratory Rate 20 Blood Pressure 151/69 H Pulse Oximetry 99 Oxygen Delivery 09/21/22 08:00 09/21/22 08:00 09/21/22 12:00 Temperature Pulse Rate 73 63 Respiratory Rate Blood Pressure Pulse Oximetry Oxygen Delivery Room Air 09/21/22 14:00 Temperature 97.2 F L Pulse Rate 68 Respiratory Rate 20 Blood Pressure 110/62 Pulse Oximetry 98 Oxygen Delivery Intake/Output Intake/Output: Intake & Output 09/18/22 09/19/22 09/20/22 09/21/22 23:59 23:59 23:59 23:59 Intake Total 600 1220 1460 1000 Output Total 043 750 0533 800 Balance 200 820 -190 200 Meds/Results Medications: Active Medications Generic Name Dose Route Start Last Admin Trade Name Freq PRN Reason Stop Dose Admin Apixaban 5 mg 09/18/22 21:00 09/21/22 08:24 Apixaban 5 Mg Tablet PO 5 mg Q12HR GABRIELLE
[2022-09-21 17:02] LABS: Glucose Point of Care 94 mg/dl (65-105)
[2022-09-22] VITALS (10 sets, daily range): BP systolic 117–134; BP diastolic 50–75; PULSE 65–89; RESP 16–20; TEMP 35.6–36.9; O2SAT 95–100
[2022-09-22] MEDS: GABAPENTIN 400 MG CAPSULE PO ×3 (05:45→20:33)
[2022-09-22 06:05] LABS: Hematocrit 37.6 % (42.0-52.0); Hemoglobin 12.2 g/dL (14.0-18.0); Mean Corpuscular HGB Conc 32.4 g/dl (32-36); Mean Corpuscular Hemoglobin 27.1 pg (26-34); Mean Corpuscular Volume 83.6 fl (80-100); Mean Platelet Volume 10.8 fl (7.4-10.4); Platelet Count Result 262 k/mm3 (150-375); White Blood Count 9.3 K/mm3 (4.5-10.0)
[2022-09-22 06:13] LABS: Alanine Aminotransferase 40 U/L (6-50); Albumin Level 3.6 g/dL (3.5-5.1); Alkaline Phosphatase 76 U/L (38-126); Anion Gap 5 mmol/L (8-16); Aspartate Amino Transferase 58 U/L (17-59); Bilirubin,Total 0.7 mg/dL (0.2-1.3); Blood Urea Nitrogen 15 mg/dL (9-20); Calcium 8.7 mg/dL (8.4-10.2); Carbon Dioxide 27 mmol/L (22-30); Chloride 103 mmol/L (98-107); Estimated CRCL calculation 66 ml/min; Estimated Glomerular Filt Rate > 60; Glucose 113 mg/dL (65-110); Potassium 3.9 mmol/L (3.4-5.0); Sodium 135 mmol/L (137-145)
[2022-09-22] MEDS: METOPROLOL SUCCINATE EXT REL 25 MG TABCR PO (08:02)
[2022-09-22] MEDS: dilTIAZem HCL CD 180 MG CAP.ER.24H 360 MG PO (08:03)
[2022-09-22] MEDS: APIXABAN 5 MG TABLET PO ×2 (08:03→20:33)
[2022-09-22] MEDS: hydrALAZINE HCL 25 MG TABLET PO ×4 (08:03→20:33)
[2022-09-22] MEDS: ROSUVASTATIN 10 MG TABLET 20 MG PO (08:03)
[2022-09-22 08:47] LABS: Glucose Point of Care 116 mg/dl (65-105)
[2022-09-22 12:22] LABS: Glucose Point of Care 118 mg/dl (65-105)
--- NOTE | 2022-09-22 16:37 | PM.IMPN ---
Progress Note: A&P Assessment and Plan (1) Acute CVA (cerebrovascular accident): Code(s): I63.9 - Cerebral infarction, unspecified Status: Acute Assessment and Plan: He has expressive and receptive aphasia. Abnormal CT head noted on admission patient's last known normal was Saturday. continue pt/ot/ and speech therapy evaluation Swallow study at bedside negative -continue regular consistency and thin liquids Speech therapy for communication continue Neurology consulted and appreciate recommendations. reportedly patient had a colonoscopy on Saturday of last week and Eliquis had been on hold since 2 days prior. Report of possible colonic mass on colonoscopy per family. Attempting to obtain records. Eliquis 5 mg b.i.d. resumed for now continue to monitor CBC MRI of the brain shows extensive acute infarct involving left temporal and parietal lobes extending to the left insular cortex also noted on CT scan Continue blood pressure management. current BP 125/71. Continue metoprolol and resume other antihypertensives. Rosuvastatin increased high-dose 20 mg p.o. daily monitor on telemetry Patient plans to be discharged into rehab facility. Awaiting placement at this time. Continuing therapy. (2) Hypertension: Code(s): I10 - Essential (primary) hypertension Status: Chronic Assessment and Plan: P.r.n. hydralazine and continue metoprolol bid. (3) Hyperlipidemia: Code(s): E78.5 - Hyperlipidemia, unspecified Status: Chronic Assessment and Plan: Patient's home medications have not been reconciled. (4) Atrial fibrillation: Code(s): I48.91 - Unspecified atrial fibrillation Status: Acute Assessment and Plan: Patient's anticoagulation has been held due to colonoscopy. Resume Eliquis BID. continue metoprolol. Resume diltiazem. Subjective Date/time seen: 09/22/22 16:37 Interval history: Patient doing well with today with no new complaints he is still waiting placement. Patient with prior return knee and other family members at bedside. Review of Systems Review of Systems: All systems reviewed & are unremarkable except as noted in HPI and below Exam Narrative: GENERAL: Comfortable, no acute distress HENMT: moist mucous membranes EYES: EOM intact b/l NECK: no lymphadenopathy RESPIRATORY: clear to auscultation CARDIO: RRR GI: soft, nontender, bowel sounds present SKIN: no rashes EXTREMITIES: no edema, redness or tenderness NEURO: strength 5/5 bilaterally upper and lower extremities, no facial droop Objective Data Vital Signs Vital Signs: Vital Signs - 24 hr 09/21/22 20:23 09/21/22 20:00 09/21/22 22:29 Temperature 98.2 F Pulse Rate 101 H 101 H 62 Respiratory Rate 18 18 Blood Pressure 117/59 L Pulse Oximetry 97 97 96 Oxygen Delivery Room Air 09/21/22 20:00 09/22/22 00:00 09/22/22 04:00 Temperature Pulse Rate 85 87 89 Respiratory Rate Blood Pressure Pulse Oximetry Oxygen Delivery 09/22/22 05:08 09/22/22 08:02 09/22/22 08:00 Temperature 98 F Pulse Rate 67 85 Respiratory Rate 20 Blood Pressure 123/75 Pulse Oximetry 97 Oxygen Delivery Room Air 09/22/22 08:00 09/22/22 12:00 09/22/22 14:00 Temperature 96.1 F L Pulse Rate 86 71 65 Respiratory Rate 20 Blood Pressure 117/60 Pulse Oximetry 100 Oxygen Delivery 09/22/22 16:00 Temperature Pulse Rate 66 Respiratory Rate Blood Pressure Pulse Oximetry Oxygen Delivery Intake/Output Intake/Output: Intake & Output 09/19/22 09/20/22 09/21/22 09/22/22 23:59 23:59 23:59 23:59 Intake Total 1220 1460 1360 900 Output Total 400 1650 800 500 Balance 820 -190 560 400 Meds/Results Medications: Active Medications Generic Name Dose Route Start Last Admin Trade Name Freq PRN Reason Stop Dose Admin Apixaban 5 mg 09/18/22 21:00 09/22/22 08:03 Apixaban 5 Mg Tablet PO 5 mg Q12
[2022-09-22 17:09] LABS: Glucose Point of Care 119 mg/dl (65-105)
[2022-09-23] VITALS (11 sets, daily range): BP systolic 111–146; BP diastolic 62–74; PULSE 51–81; RESP 16–20; TEMP 36.1–36.6; O2SAT 95–97
[2022-09-23] MEDS: GABAPENTIN 400 MG CAPSULE PO ×3 (06:01→22:35)
[2022-09-23 08:28] LABS: Glucose Point of Care 112 mg/dl (65-105)
[2022-09-23] MEDS: dilTIAZem HCL CD 180 MG CAP.ER.24H 360 MG PO (09:20)
[2022-09-23] MEDS: APIXABAN 5 MG TABLET PO ×2 (09:20→22:35)
[2022-09-23] MEDS: hydrALAZINE HCL 25 MG TABLET PO ×4 (09:21→22:35)
[2022-09-23] MEDS: ROSUVASTATIN 10 MG TABLET 20 MG PO (09:21)
[2022-09-23] MEDS: METOPROLOL SUCCINATE EXT REL 25 MG TABCR PO (09:24)
[2022-09-23 12:31] LABS: Glucose Point of Care 104 mg/dl (65-105)
--- NOTE | 2022-09-23 15:43 | PM.IMPN ---
Progress Note: A&P Assessment and Plan (1) Acute CVA (cerebrovascular accident): Code(s): I63.9 - Cerebral infarction, unspecified Status: Acute Assessment and Plan: He has expressive and receptive aphasia. Abnormal CT head noted on admission patient's last known normal was Saturday. continue pt/ot/ and speech therapy evaluation Swallow study at bedside negative -continue regular consistency and thin liquids Speech therapy for communication continue Neurology consulted and appreciate recommendations. reportedly patient had a colonoscopy on Saturday of last week and Eliquis had been on hold since 2 days prior. Report of possible colonic mass on colonoscopy per family. Attempting to obtain records. Eliquis 5 mg b.i.d. resumed for now continue to monitor CBC MRI of the brain shows extensive acute infarct involving left temporal and parietal lobes extending to the left insular cortex also noted on CT scan Continue blood pressure management. current BP 125/71. Continue metoprolol and resume other antihypertensives. Rosuvastatin increased high-dose 20 mg p.o. daily monitor on telemetry Patient plans to be discharged into rehab facility. Awaiting placement at this time. Continuing therapy. (2) Hypertension: Code(s): I10 - Essential (primary) hypertension Status: Chronic Assessment and Plan: P.r.n. hydralazine and continue metoprolol bid. (3) Hyperlipidemia: Code(s): E78.5 - Hyperlipidemia, unspecified Status: Chronic Assessment and Plan: Patient's home medications have not been reconciled. (4) Atrial fibrillation: Code(s): I48.91 - Unspecified atrial fibrillation Status: Acute Assessment and Plan: Patient's anticoagulation has been held due to colonoscopy. Resume Eliquis BID. continue metoprolol. Resume diltiazem. Subjective Date/time seen: 09/23/22 15:43 Interval history: Patient stable and awaiting placement. Should be able to be discharged tomorrow. Review of Systems Review of Systems: ROS unobtainable: Yes unobtainable due to mental status Exam Narrative: GENERAL: Comfortable, no acute distress HENMT: moist mucous membranes EYES: EOM intact b/l NECK: no lymphadenopathy RESPIRATORY: clear to auscultation CARDIO: RRR GI: soft, nontender, bowel sounds present SKIN: no rashes EXTREMITIES: no edema, redness or tenderness NEURO: strength 5/5 bilaterally upper and lower extremities, no facial droop Objective Data Vital Signs Vital Signs: Vital Signs - 24 hr 09/22/22 16:00 09/22/22 20:08 09/22/22 20:00 Temperature 98.5 F Pulse Rate 66 80 80 Respiratory Rate 16 16 Blood Pressure 134/50 L Pulse Oximetry 95 95 Oxygen Delivery Room Air 09/22/22 20:00 09/23/22 00:00 09/23/22 04:58 Temperature 97.2 F L Pulse Rate 76 81 74 Respiratory Rate 16 Blood Pressure 146/74 H Pulse Oximetry 97 Oxygen Delivery 09/23/22 04:00 09/23/22 09:24 09/23/22 09:20 Temperature Pulse Rate 74 77 77 Respiratory Rate Blood Pressure 139/73 Pulse Oximetry Oxygen Delivery 09/23/22 08:00 09/23/22 08:00 09/23/22 12:00 Temperature Pulse Rate 72 68 Respiratory Rate Blood Pressure Pulse Oximetry Oxygen Delivery Room Air Intake/Output Intake/Output: Intake & Output 09/20/22 09/21/22 09/22/22 09/23/22 23:59 23:59 23:59 23:59 Intake Total 1460 1360 1140 730 Output Total 1650 800 950 350 Balance -190 560 190 380 Meds/Results Medications: Active Medications Generic Name Dose Route Start Last Admin Trade Name Freq PRN Reason Stop Dose Admin Apixaban 5 mg 09/18/22 21:00 09/23/22 09:20 Apixaban 5 Mg Tablet PO 5 mg Q12HR GABRIELLE Administration Diltiazem HCl 360 mg 09/19/22 09:00 09/23/22 09:20 Diltiazem Hcl Cd 180 Mg Cap.Er.24h PO 360 mg QAM GABRIELLE Administration Gabapentin 400 mg 09/18/22 14:00 09/23/22 13:28 Gabapenti
[2022-09-23 17:20] LABS: Glucose Point of Care 109 mg/dl (65-105)
[2022-09-24] VITALS (13 sets, daily range): BP systolic 125–159; BP diastolic 56–80; PULSE 62–78; RESP 16–20; TEMP 36.5–37.2; O2SAT 95–97
[2022-09-24] MEDS: GABAPENTIN 400 MG CAPSULE PO ×3 (05:37→20:03)
[2022-09-24] MEDS: APIXABAN 5 MG TABLET PO ×2 (08:57→20:03)
[2022-09-24] MEDS: METOPROLOL SUCCINATE EXT REL 25 MG TABCR PO (08:57)
[2022-09-24] MEDS: ROSUVASTATIN 10 MG TABLET 20 MG PO (08:57)
[2022-09-24] MEDS: dilTIAZem HCL CD 180 MG CAP.ER.24H 360 MG PO (08:57)
[2022-09-24] MEDS: hydrALAZINE HCL 25 MG TABLET PO ×4 (08:57→20:03)
--- NOTE | 2022-09-24 14:13 | PM.IMPN ---
Progress Note: A&P Assessment and Plan (1) Acute CVA (cerebrovascular accident): Code(s): I63.9 - Cerebral infarction, unspecified Status: Acute Assessment and Plan: He has expressive and receptive aphasia. Abnormal CT head noted on admission patient's last known normal was Saturday. continue pt/ot/ and speech therapy evaluation Swallow study at bedside negative -continue regular consistency and thin liquids Speech therapy for communication Neurology consulted and appreciate recommendations. reportedly patient had a colonoscopy on Saturday of last week and Eliquis had been on hold since 2 days prior. Report of possible colonic mass on colonoscopy per family. Attempting to obtain records. Eliquis 5 mg b.i.d. resumed for now continue to monitor CBC MRI of the brain shows extensive acute infarct involving left temporal and parietal lobes extending to the left insular cortex also noted on CT scan Continue blood pressure management. current BP 125/71. Continue metoprolol and resume other antihypertensives. Rosuvastatin increased high-dose 20 mg p.o. daily monitor on telemetry Patient plans to be discharged into rehab facility. Awaiting placement at this time. Continuing therapy. (2) Hypertension: Code(s): I10 - Essential (primary) hypertension Status: Chronic Assessment and Plan: P.r.n. hydralazine and metoprolol bid. (3) Hyperlipidemia: Code(s): E78.5 - Hyperlipidemia, unspecified Status: Chronic Assessment and Plan: Crestor 20 mg daily (4) Atrial fibrillation: Code(s): I48.91 - Unspecified atrial fibrillation Status: Acute Assessment and Plan: Patient's anticoagulation has been held due to colonoscopy. Resume Eliquis BID. continue metoprolol. Resume diltiazem. Subjective Date/time seen: 09/24/22 14:13 Interval history: Patient stable and awaiting placement. I was told by care coordination that patient will receive a bed tomorrow. Review of Systems Review of Systems: All systems reviewed & are unremarkable except as noted in HPI and below Exam Narrative: GENERAL: Comfortable, no acute distress HENMT: moist mucous membranes EYES: EOM intact b/l NECK: no lymphadenopathy RESPIRATORY: clear to auscultation CARDIO: RRR GI: soft, nontender, bowel sounds present SKIN: no rashes EXTREMITIES: no edema, redness or tenderness NEURO: strength 5/5 bilaterally upper and lower extremities, no facial droop Objective Data Vital Signs Vital Signs: Vital Signs - 24 hr 09/23/22 16:00 09/23/22 21:06 09/23/22 20:00 Temperature 97.9 F Pulse Rate 56 L 70 70 Respiratory Rate 18 18 Blood Pressure 125/63 Pulse Oximetry 97 97 Oxygen Delivery Room Air 09/23/22 20:00 09/24/22 00:00 09/24/22 00:45 Temperature Pulse Rate 69 75 66 Respiratory Rate Blood Pressure Pulse Oximetry 95 Oxygen Delivery 09/24/22 04:00 09/24/22 05:10 09/24/22 08:57 Temperature 97.7 F Pulse Rate 62 70 74 Respiratory Rate 16 Blood Pressure 159/80 H Pulse Oximetry 97 Oxygen Delivery 09/24/22 08:57 09/24/22 09:13 09/24/22 08:57 Temperature Pulse Rate 74 70 Respiratory Rate Blood Pressure 125/78 Pulse Oximetry 96 Oxygen Delivery Room Air Room Air 09/24/22 14:00 Temperature 98.0 F Pulse Rate 70 Respiratory Rate 20 Blood Pressure 130/65 Pulse Oximetry 97 Oxygen Delivery Intake/Output Intake/Output: Intake & Output 09/21/22 09/22/22 09/23/22 09/24/22 23:59 23:59 23:59 23:59 Intake Total 1360 1140 970 490 Output Total 883 478 2196 300 Balance 560 190 -130 190 Meds/Results Medications: Active Medications Generic Name Dose Route Start Last Admin Trade Name Freq PRN Reason Stop Dose Admin Apixaban 5 mg 09/18/22 21:00 09/24/22 08:57 Apixaban 5 Mg Tablet PO 5 mg Q12HR GABRIELLE Administration Diltiazem HCl 360 mg 09/19/22 09:00 09/24/22 08:57
[2022-09-25] VITALS: PULSE 67
[2022-09-25 02:45] VITALS: PULSE 68; O2SAT 95
[2022-09-25 04:00] VITALS: PULSE 70
[2022-09-25 05:17] VITALS: BP 137/69; PULSE 65; RESP 18; TEMP 37.2; O2SAT 97
[2022-09-25] MEDS: GABAPENTIN 400 MG CAPSULE PO ×2 (06:07→14:16)
[2022-09-25 08:21] VITALS: BP 135/57; PULSE 77
[2022-09-25] MEDS: dilTIAZem HCL CD 180 MG CAP.ER.24H 360 MG PO (08:23)
[2022-09-25] MEDS: APIXABAN 5 MG TABLET PO (08:23)
[2022-09-25 08:24] VITALS: PULSE 77
[2022-09-25] MEDS: ROSUVASTATIN 10 MG TABLET 20 MG PO (08:24)
[2022-09-25] MEDS: METOPROLOL SUCCINATE EXT REL 25 MG TABCR PO (08:24)
[2022-09-25] MEDS: hydrALAZINE HCL 25 MG TABLET PO ×2 (08:24→14:16)
--- NOTE | 2022-09-25 08:52 | PM.DS ---
DS: Admitting Diagnosis Discharge Date 09/25/22 Admitting Diagnosis CVA DS: Discharge Diagnosis Discharge Diagnosis (1) Acute CVA (cerebrovascular accident): Code(s): I63.9 - Cerebral infarction, unspecified Status: Acute Assessment and Plan: He has expressive and receptive aphasia. Abnormal CT head noted on admission patient's last known normal was Saturday. continue pt/ot/ and speech therapy evaluation Swallow study at bedside negative -continue regular consistency and thin liquids Speech therapy for communication Neurology consulted and appreciate recommendations. reportedly patient had a colonoscopy on Saturday of last week and Eliquis had been on hold since 2 days prior. Report of possible colonic mass on colonoscopy per family. Attempting to obtain records. Eliquis 5 mg b.i.d. resumed for now continue to monitor CBC MRI of the brain shows extensive acute infarct involving left temporal and parietal lobes extending to the left insular cortex also noted on CT scan Continue blood pressure management. current BP 125/71. Continue metoprolol and resume other antihypertensives. Rosuvastatin increased high-dose 20 mg p.o. daily monitor on telemetry Patient plans to be discharged into rehab facility. Awaiting placement at this time. Continuing therapy. (2) Hypertension: Code(s): I10 - Essential (primary) hypertension Status: Chronic Assessment and Plan: P.r.n. hydralazine and metoprolol bid. (3) Hyperlipidemia: Code(s): E78.5 - Hyperlipidemia, unspecified Status: Chronic Assessment and Plan: Crestor 20 mg daily (4) Atrial fibrillation: Code(s): I48.91 - Unspecified atrial fibrillation Status: Acute Assessment and Plan: Patient's anticoagulation has been held due to colonoscopy. Resume Eliquis BID. continue metoprolol. Resume diltiazem. DS: Summary Hospital Course Reason for hospitalization: CVA Hospital Course: This is an 82-year-old male brought from home with history of CVA, hypertension, and AFib the present to the ED on 09/18/2022 with daughter worried for stroke. Patient's daughter had found him at his home for he was having difficulty with speech. Patient did not have any focal weakness or facial drooping. Patient appeared to be having an expressive aphasia. CT of the head suspicious for acute infarct in the left middle cerebral artery. CT of the chest revealing atelectasis and cardiomegaly. CTA of the head and neck with no acute large vessel occlusion, no significant vertebral or carotid artery stenosis, acute left MCA territory infarct. patient was given aspirin in the ED and neurology was consulted. Due to unknown last well patient was not a candidate for tPA. Patient only recently stopped taking his Eliquis due to colonoscopy procedure. After procedure patient had held his Eliquis for 5 days. it is unclear when exactly patient had CVA but it was during the time that he was not taking his Eliquis. Patient was found to have colon mass suspected for malignancy and was referred to have surgical resection. Patient does not have appointment at this time for this. Patient underwent MRI, echocardiogram, speech therapy, PT and OT. MRI of the brain shows extensive acute infarct involving the left temporal and parietal lobes extending into the left insular cortex. Echocardiogram revealed EF of greater than 70%, severely enlarged left atria, negative bubble study, mild valvular disease. Patient's Crestor increased to 20 mg daily. Eliquis 5 mg b.i.d. restarted. Patient's metoprolol continued. Patient monitored on telemetry. During patient's stay he continued to work with speech therapy, OT and PT. Patient did have to await placement into a rehab center. On the day of discharge patient's vital signs and labs remained stable. On the date of 09/25/2022 patient discharged to [place] [facility]. Time Spent with Patient Time
--- NOTE | 2022-09-25 12:24 | PM.DS ---
DS: Discharge Diagnosis Discharge Diagnosis (1) Acute CVA (cerebrovascular accident): Code(s): I63.9 - Cerebral infarction, unspecified Status: Acute Assessment and Plan: He has expressive and receptive aphasia. Abnormal CT head noted on admission patient's last known normal was Saturday. continue pt/ot/ and speech therapy evaluation Swallow study at bedside negative -continue regular consistency and thin liquids Speech therapy for communication Neurology consulted and appreciate recommendations. reportedly patient had a colonoscopy on Saturday of last week and Eliquis had been on hold since 2 days prior. Report of possible colonic mass on colonoscopy per family. Attempting to obtain records. Eliquis 5 mg b.i.d. resumed for now continue to monitor CBC MRI of the brain shows extensive acute infarct involving left temporal and parietal lobes extending to the left insular cortex also noted on CT scan Continue blood pressure management. current BP 125/71. Continue metoprolol and resume other antihypertensives. Rosuvastatin increased high-dose 20 mg p.o. daily monitor on telemetry Patient plans to be discharged into rehab facility. Awaiting placement at this time. Continuing therapy. (2) Hypertension: Code(s): I10 - Essential (primary) hypertension Status: Chronic Assessment and Plan: P.r.n. hydralazine and metoprolol bid. (3) Hyperlipidemia: Code(s): E78.5 - Hyperlipidemia, unspecified Status: Chronic Assessment and Plan: Crestor 20 mg daily (4) Atrial fibrillation: Code(s): I48.91 - Unspecified atrial fibrillation Status: Acute Assessment and Plan: Patient's anticoagulation has been held due to colonoscopy. Resume Eliquis BID. continue metoprolol. Resume diltiazem. DS: Summary Hospital Course Reason for hospitalization: CVA Hospital Course: This is an 82-year-old male brought from home with history of? CVA, hypertension,? and AFib the present to the ED on 09/18/2022 with daughter worried for stroke.? Patient's daughter had found him at his home for he was having difficulty with speech.? Patient did not have any focal weakness or facial drooping. ? Patient appeared to be having an expressive aphasia. CT of the head suspicious for acute infarct in the left middle cerebral artery.? CT of the chest revealing atelectasis and cardiomegaly.? CTA of the head and neck with no acute large vessel occlusion, no significant vertebral or carotid artery stenosis, acute left MCA territory infarct. patient was given aspirin in the ED and neurology was consulted.? Due to? unknown last well patient was not a candidate for tPA.? Patient only recently stopped taking his Eliquis due to colonoscopy procedure.? After procedure patient had held his Eliquis for 5 days. it is unclear when exactly patient had CVA but it was during the time that he was not taking his Eliquis. Patient was found to have colon mass suspected for malignancy and was referred to have surgical resection.? Patient does not have appointment at this time for this.? Patient underwent MRI, echocardiogram, speech therapy, PT and OT.? MRI of the brain shows extensive acute infarct involving the left temporal and parietal lobes extending into the left insular cortex.? ? Echocardiogram revealed EF of greater than 70%, severely enlarged left atria, negative bubble study, mild valvular disease. Patient's Crestor increased to 20 mg daily.? Eliquis 5 mg b.i.d. restarted.? Patient's metoprolol continued.? Patient monitored on telemetry.? During patient's stay he continued to work with speech therapy, OT and PT.? Patient did have to await placement into a rehab center.? On the day of discharge patient's vital signs and labs remained stable. On the date of 09/24/2022 patient discharged to [facility] rehab. Time Spent with Patient Time attestation: Total time spent providing and/or coordinating discharge services:
== END 2022-09-25 15:00 | DRG 66 ==
LOC: ANHED 19:52 → ANH3MED 21:13
PROVIDERS: Nurse Practitioner; Nurse Practitioner Family; Admitting Provider Chiropractor; Emergency Provider Emergency Medicine; Visit Provider Internal Medicine Critical Care Medicine
DX: I63.512 Cerebral infarction due to unspecified occlusion or stenosis of left middle cerebral artery (principal); R47.01 Aphasia; I10 Essential (primary) hypertension; E78.5 Hyperlipidemia, unspecified; I48.91 Unspecified atrial fibrillation; Z87.891 Personal history of nicotine dependence
CPT/HCPCS: 36415; 70450; 70496; 70498; 70553; 71045; 80048; 80053; 80061; 82948; 83605; 83735; 84443; 84484; 85025; 85027; 85610; 85730; 92507; 92523; 92610; 93005; 96375; 97110; 97161; 97165; 97530; 97535; 99285; A9270; A9577; C8929; Q9957; Q9967

== ENCOUNTER 2022-10-26 08:51 | Outpatient (CLI) | payer MEDICARE, SELFPAY ==
--- NOTE | ~2022-10-26 | CT_ITS ---
Clinical Indication: Colon cancer CT Scan of the Chest, Abdomen, and Pelvis with Contrast: Technique: Contiguous sections were acquired throughout the chest, abdomen, and pelvis after intraven ous administration of 100 cc of Omnipaque 350. Dose reduction technique was used on this scan by henrik canales automated exposure control and iterative reconstruction technique. The dose-length product (DL P) was 1931.31 mGy-cm. Findings: There is an enlarged, 2.7 x 1.8 cm right subcarinal lymph noted (axial image 63). No other mediastina l adenopathy identified. No aortic aneurysm or dissection. No large central pulmonary embolus. Martines ry artery calcifications are present. There is no evidence of pleural or pericardial effusion. The lungs are clear. No pulmonary nodules or infiltrates are noted. The liver, spleen, pancreas, gallbladder, and adrenal glands are within normal limits. Bilateral arian l cysts are present. No evidence of aortic aneurysm. There is a 2.5 x 2.2 cm low-density presumed lym ph node along the right side of the distal thoracic aorta (axial image 106). No bowel obstruction or bowel wall thickening. There is no evidence to suggest acute appendicitis. Pelvic images are degraded by streak artifact from bilateral hip arthroplasty. Small fat-containing l eft inguinal hernia present. Urinary bladder appears unremarkable. No definite pelvic mass seen. No a scites. Extensive degenerative spondylosis of the lumbar spine noted. Impression: 2 probable enlarged lymph nodes, one in the right subcarinal region, and one on the right side of the distal thoracic aorta. Given history, these are suspicious for metastatic nodes until proven otherwi se. Comparison with any prior exams would be useful to assess for chronicity/interval change of these lesions. No other significant abnormalities are identified. Reviewed, dictated and finalized at [facility]. Impression: 2 probable enlarged lymph nodes, one in the right subcarinal region, and one on the right side of the distal thoracic aorta. Given history, these are suspicio us for metastatic nodes until proven otherwise. Comparison with any prior exams would be useful to assess for chronicity/interval change of these lesions. No other significant abnormalities are identified.
== END 2022-10-26 08:52 | disposition home or self-care (01) ==
PROVIDERS: Visit Provider Internal Medicine Medical Oncology
DX: C18.3 Malignant neoplasm of hepatic flexure (principal); R59.0 Localized enlarged lymph nodes
CPT/HCPCS: 71260; 74177; Q9967

== ENCOUNTER 2023-01-13 12:49 | Emergency (ER) | payer MEDICARE, SELFPAY ==
--- NOTE | ~2023-01-13 | XR_ITS ---
EXAM: XR toe 1st LT min 2V DATE: 01/13/2023 14:57 HISTORY: red swollen toe; possible trauma? . COMPARISON: None available. FINDINGS: Severely decreased mineralization. No fracture or dislocation. No lytic or blastic lesion. Joint spaces and physes are maintained. No erosion or periosteal change. Soft tissues within normal limits. IMPRESSION: No acute osseous finding in the left first toe. Reviewed, dictated and finalized at location [facility].
[2023-01-13 12:51] VITALS: BP 138/87; PULSE 52; RESP 18; TEMP 36.2; O2SAT 98
--- NOTE | 2023-01-13 13:10 | PC.NURSE ---
pt states he l great toenail has started coming off today. denies any injury. states it has been oozing and is concerned it is infected. states urgent care sent him here for evaluation. pt currently taking chemo pill for colon cancer and states it cause neuropathy so he has decreased sensation to toe. swelling noted. pt also states he wants cyst on back checked. states he just finished antibiotics for them and is concerned the one on the lower back is still infected.
[2023-01-13] MEDS: ACETAMINOPHEN 500 MG TABLET 1000 MG PO (14:38)
[2023-01-13] MEDS: CEPHALEXIN 500 MG CAPSULE PO (14:39)
--- NOTE | 2023-01-13 14:42 | ED.LOWEXIN ---
HPI - Extremity Injury (Lower) General Chief Complaint: Extremity Injury, Lower Stated Complaint: left large toe Time Seen by Provider: 01/13/23 13:45 History of Present Illness HPI Narrative: Patient is an 82-year-old male presenting with toe redness and a cyst on his back. Patient states that he may have stubbed his left first toe. States that the fingernail appears to be falling off. States that it has been red since this morning with a little bit of drainage. Denies pain. Patient's family is at bedside and states that he has also been dealing with cysts on his back. States that 1 is infected. He was treated with oral antibiotics after having a telehealth visit but he was advised to come in for a wound check. Denies significant pain in this area. No fevers, vomiting, or other systemic symptoms. No numbness or weakness. Related Data Home Medications Medication Instructions Recorded Confirmed diltiazem HCl 360 mg 360 mg PO DAILY 09/18/22 09/18/22 capsule,extended release 24 hr (Cardizem CD) gabapentin 400 mg capsule 400 mg PO TID 09/18/22 09/18/22 metoprolol succinate 25 mg 25 mg PO DAILY 09/18/22 09/18/22 tablet,extended release 24 hr Allergies Allergy/AdvReac Type Severity Reaction Status Date / Time No Known Allergies Allergy Mild Verified 01/13/23 12:50 Review of Systems Review of Systems: All systems reviewed & are unremarkable except as noted in HPI and below PMFSH Past Medical History Medical History Acute CVA (cerebrovascular accident) Atrial fibrillation Cataracts, bilateral Hyperlipidemia Hypertension Neuropathy Spinal stenosis Surgical History Surgical History History of hip replacement, total 4 times History of removal of pigmented skin lesion Family History Family History Sibling Heart failure Social History Social History Social History: The patient has two adopted children and is . He lives alone . He has been to [facility] for rehab in the past and would like to go back to [facility] if able. 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 Code status full code Smoking status: Former smoker Alcohol intake: never Substance use: never Spiritual care concerns: No (Yarsani) Exam Narrative: GENERAL: Well-appearing, well-nourished, and in no acute distress. HEAD: Normocephalic, atraumatic. EYES: PERRLA and EOMI. ENT: Nares clear, no rhinorrhea or epistaxis. Mucous membranes moist. NECK: Supple. CHEST: Clear to auscultation. No respiratory distress. HEART: Regular rate and rhythm. No murmur heard. Normal peripheral pulses. ABDOMEN: Soft, nontender, nondistended, normal active bowel sounds. EXTREMITIES: Patient's left toenail is thickened and loose, concerning for chronic fungal infection, mild erythema of the toenail edges, no purulent drainage appreciated, I do not see a paronychia SKIN: Warm, dry, large cyst left upper back, mobile, nonerythematous, nontender; smaller cyst mid lower back with overlying erythema, punctate opening with purulent drainage, no surrounding cellulitis NEURO: No focal deficits. Alert and oriented x3. PSYCH: Normal mood and affect. Course Vital Signs Vital signs: Vital Signs Temperature 97.2 F L 01/13/23 12:51 Pulse Rate 52 L 01/13/23 12:51 Respiratory Rate 18 01/13/23 12:51 Blood Pressure 138/87 01/13/23 12:51 Pulse Oximetry 98 01/13/23 12:51 Oxygen Delivery Room Air 01/13/23 12:51 Temperature 97.2 F L 01/13/23 12:51 Pulse Rate 52 L 01/13/23 12:51 Respiratory Rate 18 01/13/23 12:51 Blood Pressure 138/87 01/13/23 12:51 Pulse Oximetry 98 01/13/23 12:51 Oxygen Delivery Room Air 01/13/23 12:51 Procedures Abscess I/D back: Date of Incision:
== END 2023-01-13 16:24 | disposition home or self-care (01) ==
PROVIDERS: Emergency Provider Emergency Medicine; PCP Family Medicine
DX: L03.032 Cellulitis of left toe (principal); L02.212 Cutaneous abscess of back [any part, except buttock and flank]; I48.91 Unspecified atrial fibrillation; E78.5 Hyperlipidemia, unspecified; I10 Essential (primary) hypertension; G62.9 Polyneuropathy, unspecified; Z86.73 Personal history of transient ischemic attack (TIA), and cerebral infarction without residual deficits; Z96.649 Presence of unspecified artificial hip joint; Z87.891 Personal history of nicotine dependence
CPT/HCPCS: 10060; 73660; 99283; A9270

== ENCOUNTER 2023-03-12 09:48 | Outpatient (CLI) | payer MEDICARE, SELFPAY ==
--- NOTE | ~2023-03-12 | CT_ITS ---
EXAMINATION: CT chest abdomen pelvis w con DATE: 03/12/2023 10:36 INDICATION: Malignant neoplasm of the colon TECHNIQUE: Transaxial computed tomographic images of the chest, abdomen, and pelvis were obtained aft er the administration of 100 cc of Omnipaque 350 intravenous contrast. The dose-length product (DLP) was 2059.57 mGy-cm. Automated exposure control and iterative reconstruction technique were employed. COMPARISON: 10/26/2022 FINDINGS: CHEST CT: There is mild dependent atelectasis. No pleural effusion or pneumothorax. There is a 2.4 cm sebaceous cyst of the upper chest wall posteriorly just the left of midline. There is a subcarinal lymph node versus fluid collection ascending inferolaterally along the right mainstem bronchus. There is questio nable thrombus in the left atrial appendage. Calcified coronary artery atherosclerosis is noted. The heart size is normal. There are bridging osteophytes at multiple levels in the spine, consistent with diffuse idiopathic skeletal hyperostosis (DISH). There is severe thoracic spondylosis. ABDOMEN/PELVIS CT: The liver, spleen, pancreas, gallbladder, and adrenal glands are normal. There is a stable 2.5 x 2.3 cm soft tissue mass to the right of the aorta near the diaphragmatic hiatus. Cysts of the kidneys tong sure up to 10.1 cm on the right. No free intraperitoneal gas or evidence of bowel obstruction. A mode rate volume of colonic stool is present. Streak artifact from hip arthroplasties limits evaluation of the pelvis. There are bilateral inguinal hernias containing fat. Colonic diverticulosis is present w ithout evidence of diverticulitis. There is severe lumbar spondylosis. IMPRESSION: 1. Stable soft tissue mass to the right of the aorta near the diaphragmatic hiatus, probable lymph no de metastasis. 2. Stable area of fluid attenuation in the subcarinal region extending inferolaterally along the righ t mainstem bronchus, lymph node versus pericardial cyst. Reviewed, dictated and finalized at location L. IMPRESSION: 1. Stable soft tissue mass to the right of the aorta near the diaphragmatic hia tus, probable lymph node metastasis. 2. Stable area of fluid attenuation in the subcarinal region extending inferola terally along the right mainstem bronchus, lymph node versus pericardial cyst.
[2023-03-12 10:22] LABS: Estimated Glomerular Filt Rate > 60
== END 2023-03-12 09:49 | disposition home or self-care (01) ==
LOC: ANHIMG 09:49
PROVIDERS: PCP Family Medicine; Visit Provider Internal Medicine Medical Oncology
DX: C18.9 Malignant neoplasm of colon, unspecified (principal); M79.89 Other specified soft tissue disorders
CPT/HCPCS: 71260; 74177; Q9967

== ENCOUNTER 2023-05-27 08:15 | Outpatient (CLI) | payer MEDICARE, SELFPAY ==
--- NOTE | ~2023-05-27 | CT_ITS ---
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 The dose-length product was 2023.26 mGy-cm. Automated exposure control and iterative reconstruction technique were employed. COMPARISON: CT dated 03/12/2023 and 10/26/2022 FINDINGS: CHEST CT: There is atherosclerosis of the aorta and coronary arteries. Heart size normal. Small right pleural e ffusion. Stable low-density mass right infrahilar location measuring 3.7 x 2.3 cm in the. Stable low- density mass in the retrocrural region to the right of the aorta measuring 2.7 x 2.1 cm greatest axia l dimension compared with 2.8 x 2.2 cm on prior study. No endobronchial lesions. There is dependent a telectasis. There are calcified granulomas in. Moderate elevation the right diaphragm suggesting phre wang nerve paralysis. No pneumothorax. No endobronchial lesions. There is a hemangioma of T6. ABDOMEN/PELVIS CT: Fatty infiltration of the liver. The spleen, pancreas, adrenal glands are unremarkable. There are ignacio ateral renal cysts. Gallbladder is severely distended. Moderate stranding is present in the fat of th e pelvis without significant change from prior study. Small fat-containing left inguinal hernia. Ther e is severe thoracic and lumbar spondylosis with ankylosis of the lumbar spine. Nonobstructive bowel gas pattern. There is atherosclerosis of the aorta without evidence for aneurysm or dissection. No fr ee air. IMPRESSION: 1. Stable low-density masses in the right infrahilar and retrocrural locations, likely metastatic dis ease given the clinical history. 2: Small right pleural effusion. 3: Moderate gallbladder distention. Reviewed, dictated and finalized at location B. EKEEPER/LAUNDRY ASSISTANT IMPRESSION: 1. Stable low-density masses in the right infrahilar and retrocrural locations, likely metastatic disease given the clinical history. 2: Small right pleural effusion. 3: Moderate gallbladder distention.
[2023-05-27 08:38] LABS: Estimated Glomerular Filt Rate > 60
== END 2023-05-27 08:16 | disposition home or self-care (01) ==
PROVIDERS: PCP Family Medicine; Visit Provider Internal Medicine Medical Oncology
DX: C18.9 Malignant neoplasm of colon, unspecified (principal); R93.89 Abnormal findings on diagnostic imaging of other specified body structures; J90 Pleural effusion, not elsewhere classified; K82.8 Other specified diseases of gallbladder
CPT/HCPCS: 71260; 74177; Q9967

== ENCOUNTER 2023-06-28 10:50 | Inpatient (IN) | payer MEDICARE, SELFPAY ==
[2023-06-28] VITALS (17 sets, daily range): BP systolic 108–142; BP diastolic 42–81; PULSE 51–90; RESP 15–27; TEMP 36–36.4; O2SAT 89–98
--- NOTE | 2023-06-28 | ECHO_ITS ---
Patient Info Name: Rufus Scanlon Age: 82 years : 1940 Gender: Male Ht: 71 in Wt: 352 lbs BSA: 2.91 m2 HR: 73 bpm BP: 110 / 42 mmHg Heart Rhythm: Atrial Fibrillation Technical Quality: Fair Exam Date: 06/28/2023 3:19 PM Exam Location: Echo Lab Patient Status: Outpatient Admit Date: 06/28/2023 Staff Ordering Physician: Mia Arroyo APRN Stone Grader: Vernell Clark RDCS Attending Provider: Charan Carlson MD Referring Physician: Cruz RIVERA; Exam Type: CA echo dop color flow w con Study Info Indications - imaging c/f HF Complete two-dimensional, color flow and Doppler transthoracic echocardiogram is performed with contrast to opacify the left ventricle and to improve the deliniation of the left ventricle endocardial borders. Contrast/Agitated Saline Contrast/Ag. Saline: Definity Amount: 20.00 ml Administered By: Vernell Clark RDCS Existing IV Access: Yes IV Access Condition: patent with no signs of infiltration Summary 1. Normal left ventricular size with mild concentric hypertrophy. Hyperdynamic left ventricular systolic function, ejection fraction greater than 70%. Indeterminate diastolic function. 2. Left atrial chamber dimension is moderately enlarged. 3. Right atrial chamber dimension is moderately enlarged. 4. There is mild mitral valve regurgitation. 5. There is mild tricuspid valve regurgitation. 6. There is mild pulmonic regurgitation. 7. Moderate pulmonary hypertension, estimated pulmonary arterial systolic pressure is 56 mmHg. 8. Probable atrial fibrillation. Left Ventricle Left ventricular chamber dimension is normal. Left ventricular systolic function is hyperdynamic, estimated at >70%. There is mildly increased left ventricular wall thickness. Left ventricular septal wall motion is normal. The left ventricular diastolic function is indeterminate. Right Ventricle Right ventricular chamber dimension is normal. Right ventricular systolic function is normal. Left Atria Left atrial chamber dimension is moderately enlarged. Right Atria Right atrial chamber dimension is moderately enlarged. Aortic Valve The aortic valve is trileaflet. There is no aortic valve sclerosis. There is no aortic valve stenosis. There is no aortic valve regurgitation. Pulmonic Valve The pulmonic valve is normal. There is no pulmonic valve stenosis. There is mild pulmonic regurgitation. Mitral Valve The mitral valve has thickened leaflets. There is no mitral valve stenosis. There is mild mitral valve regurgitation. Tricuspid Valve The tricuspid valve leaflets are normal. There is no significant tricuspid valve stenosis. There is mild tricuspid valve regurgitation. Moderate pulmonary hypertension, estimated pulmonary arterial systolic pressure is 56 mmHg. Pericardium/Pleural The pericardium appears normal. There is no pericardial effusion. Inferior Vena Cava Not well visualized inferior vena cava with >50% collapse upon inspiration consistent with Empty right atrial pressure, 10 mmHg. Aorta The aortic root size at the sinus of Valsalva is normal. The prox ascending aorta size is normal. The aorta arch size is not well visualized measuring Empty. The abdominal aorta size is not well visualized. Left Ventricular Outflow Tract Name Value Normal LVOT 2D
--- NOTE | ~2023-06-28 | XR_ITS ---
XR chest 1V portable 07/02/2023 10:26 Indication: Shortness of breath. Fluid overload. Procedure: AP portable chest Comparison: 06/28/2023 Findings: Cardiomegaly. Mild interstitial edema. Elevated right diaphragm. Small pleural effusions. N o pneumothorax. Impression: 1: Cardiomegaly with mild interstitial edema. Reviewed, dictated and finalized at location L. 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
--- NOTE | ~2023-06-28 | XR_ITS ---
EXAMINATION: XR chest 2V DATE: 06/28/2023 11:37 INDICATION: Shortness of breath TECHNIQUE: Frontal and lateral views of the chest are obtained COMPARISON: 09/17/2022 FINDINGS: Cardiomegaly is noted. There is a mild diffuse interstitial pattern. There are small pleura l effusions. No pneumothorax is identified. IMPRESSION: 1. Cardiomegaly with probable pulmonary edema. 2. Small pleural effusions. Reviewed, dictated and finalized at location B. LA CHARGER
--- NOTE | ~2023-06-28 | CT_ITS ---
EXAMINATION: CT brain wo con DATE: 07/02/2023 15:25 INDICATION: Confusion . TECHNIQUE: Computed tomography (CT) of the head was performed without intravenous contrast. The mA wa s adjusted according to patient size. Iterative reconstruction technique was employed. The dose-lengt h product was 1362.00 mGy-cm. COMPARISON: 09/17/2022; CTA brain carotid 09/17/2022; MR brain 09/18/2022. FINDINGS: No acute intracranial hemorrhage or extra-axial fluid collection. No hydrocephalus, mass, or herniation. No acute ischemic infarct. Unremarkable dural venous sinus attenuation. No acute osseous abnormality. The aerated spaces are clear. Mild atrophy and chronic white matter change. Atherosclerotic intracranial calcification. Chronic lef t MCA territory infarct. IMPRESSION: No acute intracranial process. Reviewed, dictated and finalized at location K. IGN AGENT
--- NOTE | 2023-06-28 10:59 | ECG_ITS ---
Measurements Intervals [place] Rate: 50 P: MI: 0 QRS: -9 QRSD: 145 T: -11 QT: 431 QTc: 397 Interpretive Statements ATRIAL FIBRILLATION WITH SLOW VENTRICULAR RESPONSE RIGHT BUNDLE BRANCH BLOCK [120+ ms QRS DURATION, UPRIGHT V1, 40+ ms S IN I/aVL/V4/V5/V6] ABNORMAL ECG COMPARED TO ECG 09/17/2022 16:48:14 HEART RATE IS REDUCED/NO OTHER DIFFERENCE Electronically Signed On 06-28-2023 15:16:28 CMO by Addi Camilo M.D.
[2023-06-28 11:41] LABS: Basophils Percent Auto 0.4 % (0.2-1.2); Eosinophils Absolute Auto 0.1 K/mm3 (0-0.3); Eosinophils Percent Auto 1.2 % (0-4.4); Hematocrit 29.4 % (42.0-52.0); Hemoglobin 8.1 g/dL (14.0-18.0); Immature Granulocyte Absolute 0.04 K/mm3 (0.00-0.031); Immature Granulocyte Percent A 0.4 % (0-0.5); Lymphocytes Absolute Auto 0.71 K/mm3 (0.9-3.2); Lymphocytes Percent Auto 7.5 % (18.3-44.2); Mean Corpuscular HGB Conc 27.6 g/dl (32-36); Mean Corpuscular Hemoglobin 25.3 pg (26-34); Mean Corpuscular Volume 91.9 fl (80-100); Mean Platelet Volume 11.1 fl (7.4-10.4); Monocytes Percent Auto 10.2 % (2.6-8.5); Neutrophils Absolute Auto 7.6 K/mm3 (1.3-6.7); Neutrophils Percent Auto 80.3 % (45.5-73.1); Platelet Count Result 210 k/mm3 (150-375); Red Cell Distribution Width 25.6 % (11.5-14.5); White Blood Count 9.5 K/mm3 (4.5-10.0)
[2023-06-28 11:52] LABS: Alanine Aminotransferase 22 U/L (6-50); Albumin Level 3.6 g/dL (3.5-5.1); Alkaline Phosphatase 74 U/L (38-126); Anion Gap 4 mmol/L (8-16); Aspartate Amino Transferase 32 U/L (17-59); Bilirubin,Total 0.6 mg/dL (0.2-1.3); Blood Urea Nitrogen 17 mg/dL (9-20); Calcium 8.9 mg/dL (8.4-10.2); Carbon Dioxide 34 mmol/L (22-30); Chloride 104 mmol/L (98-107); Estimated CRCL calculation 97 ml/min; Estimated Glomerular Filt Rate > 60; Glucose 117 mg/dL (65-110); Potassium 4.7 mmol/L (3.4-5.0); Sodium 142 mmol/L (137-145)
[2023-06-28 11:56] LABS: INR 1.9; Prothrombin Time 22.9 Seconds (11.1-14.7)
[2023-06-28 11:57] LABS: Partial Thromboplastin Time 84.2 SECONDS (22.3-36.8)
[2023-06-28 12:01] LABS: Anisocytosis 2+ (NORMAL); Hypochromasia 2+ (NORMAL); Platelet Estimate Adequate (Adequate); Schistocytes None Seen (NORMAL)
--- NOTE | 2023-06-28 12:02 | ED.SOB ---
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 Patient is a resident of [facility]. He reports having increased shortness of breath, weakness, fatigue over the last couple of days. He also reports having a new cough, occasional chest pain with coughing or deep breathing. Denies current chest pain. Reports chronic lower extremity edema. Denies known fevers. Denies production of sputum. Denies nausea, vomiting, abdominal pain. Related Data Home Medications Medication Instructions Recorded Confirmed diltiazem HCl 360 mg 360 mg PO DAILY 09/18/22 06/28/23 capsule,extended release 24 hr (Cardizem CD) gabapentin 400 mg capsule 400 mg PO TID 09/18/22 06/28/23 metoprolol succinate 25 mg 25 mg PO DAILY 09/18/22 06/28/23 tablet,extended release 24 hr celecoxib 100 mg capsule 100 mg PO BID 06/28/23 06/28/23 dabigatran etexilate 150 mg 150 mg PO BID 06/28/23 06/28/23 capsule (Pradaxa) famotidine 40 mg tablet 40 mg PO DAILY 06/28/23 06/28/23 ondansetron 4 mg disintegrating 4 mg PO DAILY 06/28/23 06/28/23 tablet Allergies Allergy/AdvReac Type Severity Reaction Status Date / Time No Known Allergies Allergy Mild Verified 01/13/23 12:50 Review of Systems Review of Systems: CONSTITUTIONAL: Denies fever, chills, or sweats. ENT: Denies rhinorrhea, congestion, sore throat. CARDIOVASCULAR: See HPI. RESPIRATORY: See HPI. GASTROINTESTINAL: Denies abdominal pain, nausea, vomiting. MUSCULOSKELETAL: Denies back pain, extremity pain, myalgia. All systems reviewed & are unremarkable except as noted in HPI and below PMFSH Past Medical History Medical History Acute CVA (cerebrovascular accident) Atrial fibrillation Cataracts, bilateral Hyperlipidemia Hypertension Neuropathy Spinal stenosis Surgical History Surgical History History of hip replacement, total 4 times History of removal of pigmented skin lesion Family History Family History Sibling Heart failure Social History Social History Social History: The patient has two adopted children and is . He lives alone . He has been to [place] for rehab in the past and would like to go back to [place] if able. 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 Code status full code Smoking status: Never smoker Alcohol intake: never Substance use: never Do You Feel Safe in your Home?: Yes Lack of Transportation: No Lack of Food: Never True Current Housing: I Have Housing Concerned About Future Housing: No Difficulty Paying Gas/Electric Bills: No Difficulty Paying for Meds: No Currently Unemployed: No Education: Master's Degree or Higher Difficulty w/ Childcare or Family Care: No Spiritual care concerns: No Exam Narrative: GENERAL: Chronically ill appearing, morbidly obese with BMI of 49.2, non-toxic, in no acute distress. HEAD: Normocephalic, atraumatic. RESPIRATORY: Airway patent, respirations nonlabored. Faint rhonchi in bases bilaterally. Occasional wheezing bilaterally. CARDIOVASCULAR: Bradycardic with irregular rhythm without murmurs, rubs, or gallops. ABDOMINAL: Soft, nontender, nondistended. Normoactive BS. MUSCULOSKELETAL: Moves all extremities. No gross deformities. Moderate pitting edema in feet and lower legs bilaterally, symmetric. Venous stasis
[2023-06-28 12:03] LABS: NT Pro B Type Natriuretic Pept 1490 pg/mL (19.9-100); Troponin I < 0.012 ng/mL (0.000-0.034)
[2023-06-28 12:18] LABS: Influenza A QL RT-PCR Negative (Negative); Influenza B QL RT-PCR Negative (Negative); RSV RNA, RT-PCR Negative (Negative); SARS-CoV-2 RNA PCR Negative (Negative)
[2023-06-28] MEDS: IPRATROPIUM BR 0.02% INH SOLN 0.5 MG/2.5 ML VIAL INHALATION (13:17)
[2023-06-28] MEDS: ALBUTEROL SULFATE NEB 2.5 MG/3 ML INH INHALATION (13:18)
[2023-06-28] MEDS: FUROSEMIDE INJ 40 MG/4 ML VIAL IV PUSH ×2 (14:45→23:59)
[2023-06-28] MEDS: PERFLUTREN LIPID MICROSPHERES 1.5 ML VIAL DILUTED TO 10 ML TOTAL VOLUME IV PUSH (15:30)
--- NOTE | 2023-06-28 16:15 | IVDEFINITY ---
Prior to administration of IV Definity the patient was educated on the risks and benefits of the imaging enhancing agent including potential adverse side effects. The patient verbalized understanding. Allergies were verified. No exclusion criteria were identified and at least one of the following inclusion criteria were met: 1) physician request, 2) patient technically difficult to image (per the [place] [employer]ocardi[employer] guidelines of two or more segments not discernable within the apical view), or 3) questionable left ventricular function. ?
--- NOTE | 2023-06-28 20:01 | PM.IMHP ---
H&P: HPI History of Present Illness Date/Time: 06/28/23 20:01 Chief Complaint: SOB, BLE edema Narrative: 82 y/o M presented here with SOB, BLE edema, and fatigue with PMH of colon cancer (non-surgical candidate, unable to tolerate chemo, and without mets), CVA with residual expressive aphasia, AFib, HLD, HTN, spinal stenosis with neuropathy resulting in patient requiring wheelchair. Patient presented here from [facility] via EMS for shortness of breath, weakness, and fatigue. Patient's daughter noted that he appeared to have jaundice skin on Saturday, none currently observed today. Then developed wheezing, shortness of breath, and weakness over the last few days (approximately 2-3). Patient has chronic lower extremity edema that has also worsened, unclear onset. He is currently wheelchair-bound due to neuropathy secondary to spinal stenosis. No focal weakness or deficits noted by family. Patient at baseline has expressive aphasia related to a CVA in November 2022. Patient had his Eliquis held for 2 days prior to a colonoscopy and subsequently restarted a week before the CVA presentation. Currently on Pradaxa, Eliquis had been previously discontinued. Patient has anemia at baseline, however hemoglobin now 8.1 (previously has been 11-13). Patient reports that his stool was dark but not black during his last bowel movement 2 days ago. No report of cheyenne blood or hematemesis. Daughter reports no missed doses of home medications. ED workup revealed worsening anemia, BNP of 1490, viral PCR negative, CXR shows cardiomegaly with probable pulmonary edema and small pleural effusions. CT of chest abdomen pelvis done on 05/27 showed only a small right pleural effusion without pulmonary edema. Review of Systems Review of Systems: Somewhat limited due to patient's expressive aphasia, primarily obtained through daughter and son at bedside. ROS unobtainable: Yes unobtainable due to mental status PMFSH Past Medical History Medical History Acute CVA (cerebrovascular accident) Anemia Atrial fibrillation Cataracts, bilateral Hyperlipidemia Hypertension Neuropathy Spinal stenosis Surgical History Surgical History History of hip replacement, total 4 times History of removal of pigmented skin lesion Family History Family History Sibling Heart failure Social History Social History (Updated 06/28/23 @ 22:49 by Mia Arroyo APRN) Social History: The patient has two adopted children and is . He lives alone. Currently lives at [facility]. 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 Code status full code Smoking status: Never smoker Alcohol intake: never Substance use: never Do You Feel Safe in your Home?: Yes Lack of Transportation: No Lack of Food: Never True Current Housing: I Have Housing Concerned About Future Housing: No Difficulty Paying Gas/Electric Bills: No Difficulty Paying for Meds: No Currently Unemployed: No Education: Master's Degree or Higher Difficulty w/ Childcare or Family Care: No Spiritual care concerns: No Meds Home Medications and Allergies Home Medications Medication Instructions Recorded Confirmed Type diltiazem HCl 360 mg 360 mg PO DAILY 09/18/22 06/28/23 History capsule,extended release 24 hr (Cardizem CD) gabapentin 400 mg capsule 400 mg PO TID 09/18/22 06/28/23 History metoprolol succinate 25 mg 25 mg PO DAILY 09/18/22 06/28/23 History tablet,extended release 24 hr atorvastatin 40 mg tablet 40 mg PO HS #30 tabs 10/08/22 06/28/23 Rx celecoxib 100 mg capsule 100 mg PO BID 06/28/23 06/28/23 History dabigatran etexilate 150 mg 150 mg PO BID 06/28/23 06/28/23 History capsule (Pradaxa) famotidine 40 mg tablet 40 mg PO DAILY 06/28/23 06/28/23 Hist
[2023-06-29 06:00] VITALS: BP 130/78; PULSE 95; RESP 23; TEMP 37.2; O2SAT 94
[2023-06-29 06:34] LABS: Basophils Percent Auto 0.5 % (0.2-1.2); Eosinophils Absolute Auto 0.1 K/mm3 (0-0.3); Eosinophils Percent Auto 1.8 % (0-4.4); Hematocrit 26.2 % (42.0-52.0); Hemoglobin 7.6 g/dL (14.0-18.0); Immature Granulocyte Absolute 0.02 K/mm3 (0.00-0.031); Immature Granulocyte Percent A 0.3 % (0-0.5); Lymphocytes Absolute Auto 0.77 K/mm3 (0.9-3.2); Lymphocytes Percent Auto 12.3 % (18.3-44.2); Mean Corpuscular Hemoglobin 25.2 pg (26-34); Mean Platelet Volume 10.8 fl (7.4-10.4); Monocytes Absolute Auto 1.1 K/mm3 (0.1-0.6); Monocytes Percent Auto 17.2 % (2.6-8.5); Neutrophils Absolute Auto 4.3 K/mm3 (1.3-6.7); Neutrophils Percent Auto 67.9 % (45.5-73.1); Nucleated Red Blood Cells Perc 0.3 % (0.0-0.2); Platelet Count Result 197 k/mm3 (150-375); Red Blood Count 3.01 M/mm3 (4.6-6.20); Red Cell Distribution Width 25.4 % (11.5-14.5); White Blood Count 6.3 K/mm3 (4.5-10.0)
[2023-06-29 07:43] LABS: Alanine Aminotransferase 21 U/L (6-50); Albumin Level 3.2 g/dL (3.5-5.1); Alkaline Phosphatase 73 U/L (38-126); Anion Gap 5 mmol/L (8-16); Aspartate Amino Transferase 31 U/L (17-59); Bilirubin,Total 0.9 mg/dL (0.2-1.3); Blood Urea Nitrogen 16 mg/dL (9-20); Calcium 8.8 mg/dL (8.4-10.2); Carbon Dioxide 34 mmol/L (22-30); Chloride 101 mmol/L (98-107); Estimated CRCL calculation 87 ml/min; Estimated Glomerular Filt Rate > 60; Glucose 101 mg/dL (65-110); Magnesium 1.9 mg/dL (1.6-2.3); Potassium 3.7 mmol/L (3.4-5.0); Sodium 140 mmol/L (137-145)
[2023-06-29 08:00] VITALS: PULSE 94; RESP 22; O2SAT 96
[2023-06-29 08:10] LABS: Platelet Estimate Adequate (Adequate)
[2023-06-29 08:11] LABS: Anisocytosis 1+ (NORMAL); Hypochromasia 2+ (NORMAL); Schistocytes None Seen (NORMAL); Target Cells 1+ (NORMAL)
[2023-06-29] MEDS: dilTIAZem HCL CD 180 MG CAP.24HR 360 MG PO (09:13)
[2023-06-29 09:14] VITALS: PULSE 95
[2023-06-29] MEDS: METOPROLOL SUCCINATE EXT REL 25 MG TABCR PO (09:14)
[2023-06-29] MEDS: GABAPENTIN 400 MG CAPSULE PO ×3 (09:14→17:21)
[2023-06-29] MEDS: FUROSEMIDE INJ 40 MG/4 ML VIAL IV PUSH ×2 (09:14→21:04)
[2023-06-29] MEDS: ONDANSETRON HCL ODT 4 MG TABLET PO (09:14)
[2023-06-29] MEDS: DABIGATRAN ETEXILATE 150 MG CAPSULE PO ×2 (09:14→21:05)
[2023-06-29] MEDS: PANTOPRAZOLE SODIUM IV 40 MG VIAL IV PUSH ×2 (09:14→21:04)
[2023-06-29 14:00] VITALS: BP 119/66; PULSE 94; RESP 22; TEMP 36.8; O2SAT 96
--- NOTE | 2023-06-29 14:29 | PM.IMPN ---
Progress Note: A&P Assessment and Plan (1) Shortness of breath: Code(s): R06.02 - Shortness of breath Status: Acute Assessment and Plan: CXR showed cardiomegaly with probable pulmonary edema and small pleural effusions. CT of abdomen/chest/pelvis on 05/27 did not show any pulmonary edema, did have small right-sided pleural effusion. BNP currently 1490. No previous history of congestive heart failure. Last echo performed on 09/18/2022: EF greater than 70%, mild increased LV wall thickness, left atrial chamber dimension is severely enlarged right atrial chamber moderately enlarged, mild MR, mild TR, mild IL. Currently on Lasix 40 p.o. daily. Increase to 80 IVP today than continue home dose of 40 tomorrow. Suspect new heart failure with exacerbation given improvement with diuresis per family's subjective assessment, patient now less wet sounding. 06/29: Continue diuresis. Patient on room air. (2) Anemia: Qualifiers: Anemia type: unspecified type Qualified Code(s): D64.9 - Anemia, unspecified Code(s): D64.9 - Anemia, unspecified Status: Acute Assessment and Plan: Hemoglobin at baseline 11.5-13.6 since September of this year. Currently 8.1. Suspect reduction in hemoglobin is secondary to GI bleed, patient reported dark stools. Will start pantoprazole 40 IVP b.i.d. obtain stool occult. Continue to trend CBC. Extensive discussion with family at bedside, would like to avoid colonoscopy given subsequent CVA when Eliquis was discontinued. Plan for rediscussion with family tomorrow once CBC is reassessed. They were offered GI consultation, however they would like to hold and see if hemoglobin is stable. Family did not identify any issue with transfusion if necessary. Will hold Celebrex. Eliquis previously discontinued and started on Pradaxa. Family would like antithrombotic medications to be continued. 06/29: Family still does not want to discontinue anticoagulant as the last time he had this discontinued he had a significant stroke. Family does not want undergo colonoscopy at this time unless [place] bleeding is noted. Will transfuse to keep 7 recheck daily labs. (3) Hypertension: Qualifiers: Hypertension type: primary hypertension Qualified Code(s): I10 - Essential (primary) hypertension Code(s): I10 - Essential (primary) hypertension Status: Chronic Assessment and Plan: Continue metoprolol. Monitor. (4) Atrial fibrillation: Qualifiers: Atrial fibrillation type: longstanding persistent Qualified Code(s): I48.11 - Longstanding persistent atrial fibrillation Code(s): I48.91 - Unspecified atrial fibrillation Status: Acute Assessment and Plan: Continue diltiazem. Continue Pradaxa per family request. Continue to monitor. 06/29: Rate controlled Plan Home Meds/Chronic Conditions -HLD: Continue statin -CVA: continue Pradaxa -neuropathy: Continue gabapentin Diet: Heart Healthy GI Prophylaxis: Pantoprazole BID DVT Prophylaxis: SCDs, on Pradaxa. Lines: pIV Code Status: Full Code Time Spent With Patient Time with patient: 25 - 35 minutes Subjective Date/time seen: 06/29/23 14:29 Interval history: 06/28 H&P: 82 y/o M presented here with SOB, BLE edema, and fatigue with PMH of colon cancer (non-surgical candidate, unable to tolerate chemo, and without mets), CVA with residual expressive aphasia, AFib, HLD, HTN, spinal stenosis with neuropathy resulting in patient requiring wheelchair. Patient presented here from [facility] via EMS for shortness of breath, weakness, and fatigue.? Patient's daughter noted that he appeared to have jaundice skin on Saturday, none currently observed today.? Then developed wheezing, shortness of breath, and weakness over the last few days (approximately 2-3).? Patient has chronic lower extremity edema that has also worsened, unclear onset.? He is cur
[2023-06-29] MEDS: ATORVASTATIN 40 MG TABLET PO (21:05)
[2023-06-29 21:14] VITALS: BP 118/56; PULSE 86; RESP 19; TEMP 36.3; O2SAT 91
[2023-06-30 06:00] VITALS: BP 122/65; PULSE 83; RESP 19; TEMP 36.6; O2SAT 94
[2023-06-30 06:20] LABS: Basophils Percent Auto 0.4 % (0.2-1.2); Eosinophils Absolute Auto 0.2 K/mm3 (0-0.3); Eosinophils Percent Auto 3.3 % (0-4.4); Hematocrit 27.1 % (42.0-52.0); Hemoglobin 7.9 g/dL (14.0-18.0); Immature Granulocyte Absolute 0.04 K/mm3 (0.00-0.031); Immature Granulocyte Percent A 0.6 % (0-0.5); Lymphocytes Absolute Auto 0.92 K/mm3 (0.9-3.2); Lymphocytes Percent Auto 13.6 % (18.3-44.2); Mean Corpuscular HGB Conc 29.2 g/dl (32-36); Mean Corpuscular Hemoglobin 25.3 pg (26-34); Mean Corpuscular Volume 86.9 fl (80-100); Mean Platelet Volume 11.6 fl (7.4-10.4); Monocytes Absolute Auto 1.2 K/mm3 (0.1-0.6); Monocytes Percent Auto 17.3 % (2.6-8.5); Neutrophils Absolute Auto 4.4 K/mm3 (1.3-6.7); Neutrophils Percent Auto 64.8 % (45.5-73.1); Platelet Count Result 202 k/mm3 (150-375); Red Blood Count 3.12 M/mm3 (4.6-6.20); Red Cell Distribution Width 25.8 % (11.5-14.5); White Blood Count 6.8 K/mm3 (4.5-10.0)
[2023-06-30 06:50] LABS: Alanine Aminotransferase 19 U/L (6-50); Albumin Level 3.1 g/dL (3.5-5.1); Alkaline Phosphatase 64 U/L (38-126); Anion Gap 5 mmol/L (8-16); Aspartate Amino Transferase 31 U/L (17-59); Bilirubin,Total 0.8 mg/dL (0.2-1.3); Blood Urea Nitrogen 20 mg/dL (9-20); Calcium 8.4 mg/dL (8.4-10.2); Carbon Dioxide 37 mmol/L (22-30); Chloride 97 mmol/L (98-107); Estimated CRCL calculation 87 ml/min; Estimated Glomerular Filt Rate > 60; Glucose 105 mg/dL (65-110); Potassium 3.8 mmol/L (3.4-5.0); Sodium 139 mmol/L (137-145)
[2023-06-30 09:00] LABS: Platelet Estimate Adequate (Adequate)
[2023-06-30 09:01] LABS: Anisocytosis 1+ (NORMAL); Hypochromasia 2+ (NORMAL); Target Cells 1+ (NORMAL)
[2023-06-30 09:21] LABS: Schistocytes None Seen (NORMAL)
[2023-06-30 09:34] VITALS: PULSE 100
[2023-06-30] MEDS: METOPROLOL SUCCINATE EXT REL 25 MG TABCR PO (09:34)
[2023-06-30] MEDS: ONDANSETRON HCL ODT 4 MG TABLET PO (09:34)
[2023-06-30] MEDS: dilTIAZem HCL CD 180 MG CAP.24HR 360 MG PO (09:34)
[2023-06-30] MEDS: DABIGATRAN ETEXILATE 150 MG CAPSULE PO ×2 (09:34→20:28)
[2023-06-30] MEDS: GABAPENTIN 400 MG CAPSULE PO ×3 (09:34→16:51)
[2023-06-30] MEDS: FUROSEMIDE INJ 40 MG/4 ML VIAL IV PUSH (09:35)
[2023-06-30] MEDS: PANTOPRAZOLE SODIUM IV 40 MG VIAL IV PUSH ×2 (09:35→20:29)
[2023-06-30 14:00] VITALS: BP 101/69; PULSE 89; RESP 16; TEMP 36.2; O2SAT 97
--- NOTE | 2023-06-30 14:00 | PM.IMPN ---
Progress Note: A&P Assessment and Plan (1) Shortness of breath: Code(s): R06.02 - Shortness of breath Status: Acute Assessment and Plan: CXR showed cardiomegaly with probable pulmonary edema and small pleural effusions. CT of abdomen/chest/pelvis on 05/27 did not show any pulmonary edema, did have small right-sided pleural effusion. BNP currently 1490. No previous history of congestive heart failure. Last echo performed on 09/18/2022: EF greater than 70%, mild increased LV wall thickness, left atrial chamber dimension is severely enlarged right atrial chamber moderately enlarged, mild MR, mild TR, mild VA. Currently on Lasix 40 p.o. daily. Increase to 80 IVP today than continue home dose of 40 tomorrow. Suspect new heart failure with exacerbation given improvement with diuresis per family's subjective assessment, patient now less wet sounding. 06/29: Continue diuresis. Patient on room air. (2) Anemia: Qualifiers: Anemia type: unspecified type Qualified Code(s): D64.9 - Anemia, unspecified Code(s): D64.9 - Anemia, unspecified Status: Acute Assessment and Plan: Hemoglobin at baseline 11.5-13.6 since September of this year. Currently 8.1. Suspect reduction in hemoglobin is secondary to GI bleed, patient reported dark stools. Will start pantoprazole 40 IVP b.i.d. obtain stool occult. Continue to trend CBC. Extensive discussion with family at bedside, would like to avoid colonoscopy given subsequent CVA when Eliquis was discontinued. Plan for rediscussion with family tomorrow once CBC is reassessed. They were offered GI consultation, however they would like to hold and see if hemoglobin is stable. Family did not identify any issue with transfusion if necessary. Will hold Celebrex. Eliquis previously discontinued and started on Pradaxa. Family would like antithrombotic medications to be continued. 06/29: Family still does not want to discontinue anticoagulant as the last time he had this discontinued he had a significant stroke. Family does not want undergo colonoscopy at this time unless [place] bleeding is noted. Will transfuse to keep above 7, recheck daily labs. (3) Hypertension: Qualifiers: Hypertension type: primary hypertension Qualified Code(s): I10 - Essential (primary) hypertension Code(s): I10 - Essential (primary) hypertension Status: Chronic Assessment and Plan: Continue metoprolol. Monitor. (4) Atrial fibrillation: Qualifiers: Atrial fibrillation type: longstanding persistent Qualified Code(s): I48.11 - Longstanding persistent atrial fibrillation Code(s): I48.91 - Unspecified atrial fibrillation Status: Acute Assessment and Plan: Continue diltiazem. Continue Pradaxa per family request. Continue to monitor. 06/29: Rate controlled Plan Home Meds/Chronic Conditions -HLD: Continue statin -CVA: continue Pradaxa -neuropathy: Continue gabapentin Diet: Heart Healthy GI Prophylaxis: Pantoprazole BID DVT Prophylaxis: SCDs, on Pradaxa. Lines: pIV Code Status: Full Code Time Spent With Patient Time with patient: 25 - 35 minutes Subjective Date/time seen: 06/30/23 14:00 Interval history: 06/28 H&P: 82 y/o M presented here with SOB, BLE edema, and fatigue with PMH of colon cancer (non-surgical candidate, unable to tolerate chemo, and without mets), CVA with residual expressive aphasia, AFib, HLD, HTN, spinal stenosis with neuropathy resulting in patient requiring wheelchair. Patient presented here from [facility] via EMS for shortness of breath, weakness, and fatigue.? Patient's daughter noted that he appeared to have jaundice skin on Saturday, none currently observed today.? Then developed wheezing, shortness of breath, and weakness over the last few days (approximately 2-3).? Patient has chronic lower extremity edema that has also worsened, unclear onset.? He
[2023-06-30 20:00] VITALS: PULSE 89; RESP 16; O2SAT 97
[2023-06-30] MEDS: ATORVASTATIN 40 MG TABLET PO (20:27)
[2023-06-30 22:00] VITALS: BP 115/73; PULSE 77; RESP 18; TEMP 36.4; O2SAT 97
[2023-07-01] VITALS (23 sets, daily range): BP systolic 109–135; BP diastolic 68–77; PULSE 71–106; RESP 22–26; TEMP 36.1–37; O2SAT 92–100
[2023-07-01 06:23] LABS: Alveolar/Arterial O2 Gradient 52.4 mmHg; Base Excess ABG 7.4 mEq/l (+/-2.0); Fractional Inspired Oxygen 30 %; HCO3 ABG 36.5 mEq/l (22.0-26.0); Methemoglobin ABG 0.3 %THb (0-1.5); Oxygen Content ABG 11.6 %vol (16.0-22.0); PO2 ABG 61.5 mmHg (80.0-100.0); PO2 FiO2 Ratio Arterial Blood 2.05 %; Reduced Hemoglobin 11.6 %THb (0-5.0); Total Hemoglobin 9.4 g/dL (12.0-18.0)
--- NOTE | 2023-07-01 06:26 | PM.EVENT ---
Event Note Event Note Event Note: 07/01/2023 06:30 Nursing staff called to state the patient had significant decrease in level of consciousness. Patient does have obstructive sleep apnea and was unable to use home CPAP since admission. Stat ABG was performed which demonstrated pH 7.25 pCO2 85 PO2 in the 60s. Patient was transferred to the IMU. I gave the respiratory therapist orders for AVAPS. However bedtime patient was transferred shift change had occurred. When I went to evaluate the patient patient was actually having prolonged episodes of apnea. The patient would wake up to noxious stimuli but was not necessarily could following commands. He was protecting his airway. Respiratory therapy did not agree with AVAPS and thus I gave orders for BiPAP settings of 26/8 and rate of 22. I stated the bedside making BiPAP adjustments into the patient was having improve aeration and was no longer having prolonged episodes of apnea. An order was given for ABG in 1 hour. I feel the patient will still likely need AVAPS. Handoff was given to the daytime provider with updates on the patient's condition at the end of my shift. Nursing staff contacted the family while I was stabilizing him. The family who verified they would not want the patient to be intubated. The patient's code status was changed to DNR. 45 minute spent in critical care activities. Due to a high probability of clinically significant, life threatening deterioration, the patient required my highest level of preparedness to intervene emergently and I personally spent this critical care time directly and personally managing the patient. This critical care time included obtaining a history; examining the patient; pulse oximetry; ordering and review of studies; arranging urgent treatment with development of a management plan; evaluation of patient's response to treatment; frequent reassessment; and discussions with other providers. It was exclusive of separately billable procedures and treating other patients and teaching time. Please see Assessment and Plan section and the rest of the note for further information on patient assessment and treatment.
--- NOTE | 2023-07-01 06:29 | PC.NURSE ---
PCT reported to this RN that patient was difficult to arouse this morning. O2 sats were low with patient on NC at 4L. Pt was sternal rubbed with minimal arousability. starch factory laborer called to come to patients room. Different O2 masks were placed on the patient to attempt to get O2 stats WNL. Dr worley notified and stat ABG order placed. Abg collected and relayed to dr worley. Order for bipap placed.
[2023-07-01 06:41] LABS: Basophils Percent Auto 0.2 % (0.2-1.2); Eosinophils Percent Auto 0.1 % (0-4.4); Hematocrit 31.2 % (42.0-52.0); Hemoglobin 8.6 g/dL (14.0-18.0); Immature Granulocyte Absolute 0.08 K/mm3 (0.00-0.031); Immature Granulocyte Percent A 0.8 % (0-0.5); Lymphocytes Absolute Auto 0.51 K/mm3 (0.9-3.2); Lymphocytes Percent Auto 5.3 % (18.3-44.2); Mean Corpuscular HGB Conc 27.6 g/dl (32-36); Mean Corpuscular Volume 90.7 fl (80-100); Mean Platelet Volume 11.3 fl (7.4-10.4); Monocytes Absolute Auto 1.4 K/mm3 (0.1-0.6); Monocytes Percent Auto 14.9 % (2.6-8.5); Neutrophils Absolute Auto 7.5 K/mm3 (1.3-6.7); Neutrophils Percent Auto 78.7 % (45.5-73.1); Nucleated Red Blood Cells Perc 0.3 % (0.0-0.2); Platelet Count Result 221 k/mm3 (150-375); Red Blood Count 3.44 M/mm3 (4.6-6.20); Red Cell Distribution Width 25.3 % (11.5-14.5); White Blood Count 9.6 K/mm3 (4.5-10.0)
[2023-07-01 06:59] LABS: Oxygen Saturation ABG 86.2 % (95.0-100.0); PCO2 ABG 85.1 mmHg (35.0-45.0)
[2023-07-01 07:00] LABS: Alanine Aminotransferase 21 U/L (6-50); Albumin Level 3.4 g/dL (3.5-5.1); Alkaline Phosphatase 76 U/L (38-126); Aspartate Amino Transferase 29 U/L (17-59); Bilirubin,Total 0.7 mg/dL (0.2-1.3); Blood Urea Nitrogen 21 mg/dL (9-20); Calcium 8.5 mg/dL (8.4-10.2); Carbon Dioxide > 40 mmol/L (22-30); Chloride 95 mmol/L (98-107); Estimated CRCL calculation 64 ml/min; Estimated Glomerular Filt Rate 58; Glucose 153 mg/dL (65-110); Potassium 4.3 mmol/L (3.4-5.0); Sodium 138 mmol/L (137-145)
[2023-07-01 07:00] LABS: Device VENTURI MASK; Oxyhemoglobin 87.1 % THb (90.0-100.0); Site Drawn LEFT BRACHIAL
--- NOTE | 2023-07-01 07:32 | PC.NURSE ---
Left message for dtr Zahra to let her know that pt is responding better to bipap changes, but would still recommend that family come up.
[2023-07-01 08:43] LABS: Alveolar/Arterial O2 Gradient 178.7 mmHg; Base Excess ABG 11.2 mEq/l (+/-2.0); Fractional Inspired Oxygen 60 %; HCO3 ABG 41.9 mEq/l (22.0-26.0); Oxygen Saturation ABG 97.5 % (95.0-100.0); Oxyhemoglobin 96.2 % THb (90.0-100.0); PO2 ABG 127.8 mmHg (80.0-100.0); PO2 FiO2 Ratio Arterial Blood 2.13 %; Total Hemoglobin 9.4 g/dL (12.0-18.0)
[2023-07-01 08:46] LABS: pH ABG 7.198 (7.350-7.450)
[2023-07-01 08:47] LABS: Device NON-INVASIVE VENT; Modified Allen's Test Pass; Non-Invasive Expiratory Pressure 8 CMH2O; Non-Invasive Inspiratory Pressure 26 CMH2O; Non-Invasive Vent Rate 24 /MIN; PCO2 ABG 110.3 mmHg (35.0-45.0); Site Drawn LEFT RADIAL
[2023-07-01 08:59] LABS: Anisocytosis 1+ (NORMAL); Hypochromasia 1+ (NORMAL); Platelet Estimate Adequate (Adequate); Schistocytes None Seen (NORMAL); Target Cells 1+ (NORMAL)
--- NOTE | 2023-07-01 09:49 | PM.IMPN ---
Progress Note: A&P Assessment and Plan (1) Acute hypercapnic respiratory failure: Code(s): J96.02 - Acute respiratory failure with hypercapnia Status: Acute Assessment and Plan: 07/01: Home BiPAP machine did not work overnight altered level of consciousness this morning with labored breathing. Patient moved to IMU and placed on BiPAP rate of 24 with pressures of 26/8. PCO2 worsened from 85 to 110 while on these settings. Changed to AVAPS rate of 22 tidal volume 500 with responsive pCO2 down to 99.9. (2) Shortness of breath: Code(s): R06.02 - Shortness of breath Status: Acute Assessment and Plan: CXR showed cardiomegaly with probable pulmonary edema and small pleural effusions. CT of abdomen/chest/pelvis on 05/27 did not show any pulmonary edema, did have small right-sided pleural effusion. BNP currently 1490. No previous history of congestive heart failure. Last echo performed on 09/18/2022: EF greater than 70%, mild increased LV wall thickness, left atrial chamber dimension is severely enlarged right atrial chamber moderately enlarged, mild MR, mild TR, mild VT. Currently on Lasix 40 p.o. daily. Increase to 80 IVP today than continue home dose of 40 tomorrow. Suspect new heart failure with exacerbation given improvement with diuresis per family's subjective assessment, patient now less wet sounding. 06/29: Continue diuresis. Patient on room air. 07/01: sudden respiratory distress this morning and with altered mental status. Patient now on AVAPS FiO2 30% (3) Anemia: Qualifiers: Anemia type: unspecified type Qualified Code(s): D64.9 - Anemia, unspecified Code(s): D64.9 - Anemia, unspecified Status: Acute Assessment and Plan: Hemoglobin at baseline 11.5-13.6 since September of this year. Currently 8.1. Suspect reduction in hemoglobin is secondary to GI bleed, patient reported dark stools. Will start pantoprazole 40 IVP b.i.d. obtain stool occult. Continue to trend CBC. Extensive discussion with family at bedside, would like to avoid colonoscopy given subsequent CVA when Eliquis was discontinued. Plan for rediscussion with family tomorrow once CBC is reassessed. They were offered GI consultation, however they would like to hold and see if hemoglobin is stable. Family did not identify any issue with transfusion if necessary. Will hold Celebrex. Eliquis previously discontinued and started on Pradaxa. Family would like antithrombotic medications to be continued. 06/29: Family still does not want to discontinue anticoagulant as the last time he had this discontinued he had a significant stroke. Family does not want undergo colonoscopy at this time unless [place] bleeding is noted. Will transfuse to keep above 7, recheck daily labs. 07/01: hemoglobin 8.6 this morning (4) Hypertension: Qualifiers: Hypertension type: primary hypertension Qualified Code(s): I10 - Essential (primary) hypertension Code(s): I10 - Essential (primary) hypertension Status: Chronic Assessment and Plan: Continue metoprolol. Monitor. (5) Atrial fibrillation: Qualifiers: Atrial fibrillation type: longstanding persistent Qualified Code(s): I48.11 - Longstanding persistent atrial fibrillation Code(s): I48.91 - Unspecified atrial fibrillation Status: Acute Assessment and Plan: Continue diltiazem. Continue Pradaxa per family request. Continue to monitor. 06/29: Rate controlled 07/01: underlying atrial fibrillation paced rhythm at times, rate controlled currently on diltiazem drip (6) Acute CHF (congestive heart failure): Qualifiers: Heart failure type: diastolic Qualified Code(s): I50.31 - Acute diastolic (congestive) heart failure Code(s): I50.9 - Heart failure, unspecified Status: Acute Assessment and Plan: Summary ? 1. Normal left ventricular size with mild concentric hypertrop
[2023-07-01 10:54] LABS: Alveolar/Arterial O2 Gradient 77.9 mmHg; Base Excess ABG 9.6 mEq/l (+/-2.0); Carboxyhemoglobin 0.7 % THb (0-2.0); Fractional Inspired Oxygen 40 %; HCO3 ABG 39.8 mEq/l (22.0-26.0); Methemoglobin ABG 0.1 %THb (0-1.5); Oxygen Content ABG 12.8 %vol (16.0-22.0); Oxygen Saturation ABG 94.8 % (95.0-100.0); Oxyhemoglobin 94.4 % THb (90.0-100.0); PO2 ABG 92.4 mmHg (80.0-100.0); PO2 FiO2 Ratio Arterial Blood 2.31 %; Reduced Hemoglobin 4.8 %THb (0-5.0); Total Hemoglobin 9.5 g/dL (12.0-18.0)
[2023-07-01 10:55] LABS: Modified Allen's Test Pass; PCO2 ABG 99.9 mmHg (35.0-45.0); Site Drawn LEFT RADIAL; pH ABG 7.218 (7.350-7.450)
[2023-07-01 10:56] LABS: Non-Invasive Expiratory Pressure 5 CMH2O; Non-Invasive Vent Rate 22 /MIN
[2023-07-01 10:57] LABS: Device NON-INVASIVE VENT
[2023-07-01] MEDS: FUROSEMIDE INJ 40 MG/4 ML VIAL IV PUSH (12:03)
[2023-07-01] MEDS: PANTOPRAZOLE SODIUM IV 40 MG VIAL IV PUSH ×2 (12:04→20:42)
[2023-07-01] MEDS: dilTIAZem 100 MG/100 ML 100 MG/100 ML BAG 15 MG IV CONT ×2 (12:04→18:12)
[2023-07-01] MEDS: ENOXAPARIN 80 MG/0.8 ML SYRINGE 160 MG SUB-Q (12:28)
--- NOTE | 2023-07-01 14:43 | PC.NURSE ---
0700 received pt from 3rd med/surg to room 211 via bed accompanied by staff, pt nonresponsive-periods of apnea noted - Dr. Todd at bedside. RT at bedside- pt placed on BIPAP 02/03 rate 24 60%; family called by Jacques QUIÑONEZ and notified of condition
[2023-07-01 15:29] LABS: Alveolar/Arterial O2 Gradient 70.7 mmHg; Base Excess ABG 16.4 mEq/l (+/-2.0); Fractional Inspired Oxygen 30 %; Methemoglobin ABG 0.3 %THb (0-1.5); Modified Allen's Test Pass; Oxygen Content ABG 11.7 %vol (16.0-22.0); Oxygen Saturation ABG 92.5 % (95.0-100.0); Oxyhemoglobin 91.9 % THb (90.0-100.0); PCO2 ABG 66.4 mmHg (35.0-45.0); PO2 ABG 65.2 mmHg (80.0-100.0); PO2 FiO2 Ratio Arterial Blood 2.17 %; Reduced Hemoglobin 6.8 %THb (0-5.0); Site Drawn LEFT RADIAL; pH ABG 7.429 (7.350-7.450)
[2023-07-01 15:30] LABS: Non-Invasive Expiratory Pressure 5 CMH2O; Non-Invasive Vent Rate 22 /MIN
[2023-07-01 15:31] LABS: Device NON-INVASIVE VENT
[2023-07-02] VITALS (23 sets, daily range): BP systolic 107–137; BP diastolic 43–68; PULSE 66–93; RESP 20–32; TEMP 36.5–37.2; O2SAT 91–100
[2023-07-02] MEDS: dilTIAZem 100 MG/100 ML 100 MG/100 ML BAG 15 MG IV CONT (00:49)
[2023-07-02 05:47] LABS: Base Excess ABG 10.8 mEq/l (+/-2.0); Fractional Inspired Oxygen 30 %; HCO3 ABG 35.2 mEq/l (22.0-26.0); Oxygen Saturation ABG 97.1 % (95.0-100.0); Oxyhemoglobin 94.9 % THb (90.0-100.0); PCO2 ABG 46.8 mmHg (35.0-45.0); PO2 ABG 85.9 mmHg (80.0-100.0); PO2 FiO2 Ratio Arterial Blood 2.86 %; Total Hemoglobin 8.1 g/dL (12.0-18.0); pH ABG 7.494 (7.350-7.450)
[2023-07-02 06:20] LABS: Basophils Percent Auto 0.2 % (0.2-1.2); Eosinophils Percent Auto 0.1 % (0-4.4); Hematocrit 25.9 % (42.0-52.0); Hemoglobin 7.4 g/dL (14.0-18.0); Immature Granulocyte Absolute 0.06 K/mm3 (0.00-0.031); Immature Granulocyte Percent A 0.6 % (0-0.5); Lymphocytes Absolute Auto 0.76 K/mm3 (0.9-3.2); Lymphocytes Percent Auto 7.1 % (18.3-44.2); Mean Corpuscular HGB Conc 28.6 g/dl (32-36); Mean Corpuscular Volume 87.5 fl (80-100); Mean Platelet Volume 11.7 fl (7.4-10.4); Monocytes Absolute Auto 2.1 K/mm3 (0.1-0.6); Neutrophils Absolute Auto 7.7 K/mm3 (1.3-6.7); Platelet Count Result 157 k/mm3 (150-375); Red Blood Count 2.96 M/mm3 (4.6-6.20); Red Cell Distribution Width 25.7 % (11.5-14.5); White Blood Count 10.7 K/mm3 (4.5-10.0)
[2023-07-02 06:24] LABS: Modified Allen's Test Pass; Site Drawn LEFT RADIAL
[2023-07-02 06:25] LABS: Device OTHER DEVICE
[2023-07-02 06:29] LABS: Alanine Aminotransferase 16 U/L (6-50); Albumin Level 2.9 g/dL (3.5-5.1); Alkaline Phosphatase 62 U/L (38-126); Anion Gap 4 mmol/L (8-16); Aspartate Amino Transferase 24 U/L (17-59); Bilirubin,Total 0.8 mg/dL (0.2-1.3); Blood Urea Nitrogen 24 mg/dL (9-20); Calcium 8.3 mg/dL (8.4-10.2); Carbon Dioxide 36 mmol/L (22-30); Chloride 97 mmol/L (98-107); Estimated CRCL calculation 88 ml/min; Estimated Glomerular Filt Rate > 60; Glucose 114 mg/dL (65-110); Potassium 3.9 mmol/L (3.4-5.0); Sodium 137 mmol/L (137-145)
[2023-07-02 07:06] LABS: Anisocytosis 2+ (NORMAL); Hypochromasia 2+ (NORMAL); Platelet Estimate Adequate (Adequate); Schistocytes None Seen (NORMAL); Target Cells 1+ (NORMAL)
--- NOTE | 2023-07-02 08:59 | PM.CNPUL ---
Assessment and Plan Assessment and plan (1) CLARISSA (obstructive sleep apnea): Code(s): G47.33 - Obstructive sleep apnea (adult) (pediatric) Status: Acute Assessment and Plan: The son and daughter tell me he was diagnosed with obstructive sleep apnea proximally 10 years ago with a sleep study and was prescribed a nasal CPAP unit. He has worn this regularly for the last 10 years except for the last week. He had been sick with shortness of breath and was not sleeping in his bed which is where his CPAP is set up. He was sleeping in a wheelchair and was not wearing it for approximately 5 out of the 7 nights before admission. [employer] is his [employer] company. They are not sure if his PCP checks his downloads. Patient presented with a serum bicarbonate of 34. He had altered mental status on 07/01/2023 with a blood gas of 7.25/85/61. the patient was placed on BiPAP rate of 24, pressures 26/8 with worsening PaCO2 and a blood gas of 7.20, 110, 128. The patient was then switched to a noninvasive ventilator with the AVAPS mode with improvement in his PaCO2. 07/02/23: Patient wore the noninvasive ventilator overnight with AVAPS set rate of 22, tidal volume 500, EPAP 5, minimal inspiratory pressure 6, mask Amal inspiratory pressure 30, inspiratory time 0.9 seconds, rise of 3, 30% FiO2 overnight with a blood gas this morning of 7.49/47/86. I plugged in his home AirSense 10 ResMed med machine and over the last 30 days he has worn the machine greater than 4 hours at 19 of 30 days with an average of 5.3 hours. His pressure is 8. His AHI is 6.4 with an apnea index of 5.2 and a central apnea index of 0. 07/02: The patient may have obesity hypoventilation syndrome. He presented with fluid overload. He has received diuresis with cumulative diuresis-5.5 L since admission. His weight on admission was 160 kg and today's weight is 161.2 kg. BNP today is minimally improved from 14 90 on admission to 1300 today. His free T4 is 1.38 on 07/02, normal. His TSH is 2.53 on 06/29, normal. There is no evidence of an active infection. The patient has no history of tobacco use and no history of COPD or asthma. Currently the patient is on room air during the day with saturations 94-96%%. His persistent alteration in communication and mental status is not related to a respiratory issue. Plan: I will check a repeat chest x-ray to assess his congestion. Tonight I will continue the noninvasive ventilation with the AVAPS mode and room air and perform apnea link. As he continues to improve I will check his daytime ventilation with a room gas ABG to determine if he has obesity hypoventilation syndrome. I have contacted our clinical coordinator to obtain a download from his [employer] company, [employer]. Agree with as aggressive diuresis as tolerated by his cardiac and renal systems per hospitalist team. Currently the patient is on Lasix 40 IV q.day. Discussed with Dr. Pitts, will follow with you. History of Present Illness History of Present Illness Consult date: 07/02/23 Chief complaint: Acute CHF/SOB/Anemia Narrative: 07/02/2023: This is a new pulmonary consult for hypoxemic and hypercarbic respiratory failure. 82 y/o M presented here with SOB, BLE edema, and fatigue with PMH of colon cancer (non-surgical candidate, unable to tolerate chemo, and without mets), CVA with residual expressive aphasia, AFib, HLD, HTN, spinal stenosis with neuropathy resulting in patient requiring wheelchair. 06/28: (from initial H and P.) Patient presented here from [facility] via EMS for shortness of breath, weakness, and fatigue.? Patient's daughter noted that he appeared to have jaundice skin on Saturday, none currently observed today.? Then developed wheezing, shortness of breath, and weakness over the last few days (approximately 2-3).? Patient has chronic lower extremity edema that has also worsened, unclear onset.? He is currently wheelch
[2023-07-02] MEDS: DABIGATRAN ETEXILATE 150 MG CAPSULE PO ×2 (09:28→20:25)
[2023-07-02] MEDS: GABAPENTIN 400 MG CAPSULE PO ×3 (09:28→18:24)
[2023-07-02] MEDS: PANTOPRAZOLE SODIUM IV 40 MG VIAL IV PUSH ×2 (09:28→20:25)
[2023-07-02] MEDS: FUROSEMIDE INJ 40 MG/4 ML VIAL IV PUSH (09:28)
[2023-07-02] MEDS: dilTIAZem HCL CD 180 MG CAP.24HR 360 MG PO (09:29)
[2023-07-02] MEDS: METOPROLOL SUCCINATE EXT REL 25 MG TABCR PO (09:29)
[2023-07-02 09:34] LABS: NT Pro B Type Natriuretic Pept 1300 pg/mL (19.9-100)
[2023-07-02 09:42] LABS: Free T4 Free Thyroxine 1.38 ng/mL (0.78-2.19)
--- NOTE | 2023-07-02 10:55 | PCRCNOTE ---
DR GUALLPA REQUESTED DOWNLOAD ON PATIENT HOME CPAP UNIT FROM [facility]. CALLED [facility], THEY SAID THEY ARE HAVING TROUBLE GETTING INTO PROGRAM TO RETRIEVE IT, SHE WILL WORK ON IT AND FAX IF ABLE TODAY, OTHERWISE IT WILL BE FIRST THING TOMORROW.
[2023-07-02] MEDS: ACETAMINOPHEN 325 MG TABLET 650 MG PO (11:11)
--- NOTE | 2023-07-02 11:56 | PM.IMPN ---
Progress Note: A&P Assessment and Plan (1) Acute hypercapnic respiratory failure: Code(s): J96.02 - Acute respiratory failure with hypercapnia Status: Acute Assessment and Plan: Patient has CLARISSA and is mostly compliant with his BiPAP except not wearing for the past week priro to admission. He had clinical worsening director of early childhood education hours of 07/01. ABG 7.25/85/61 on VM Patient moved to IMU and placed on BiPAP. With setting changes, ABG improved. ABG today 7.49/47/86 30% FiO2 Pulmonary consult to help determine Home needs. (2) Acute CHF (congestive heart failure): Qualifiers: Heart failure type: diastolic Qualified Code(s): I50.31 - Acute diastolic (congestive) heart failure Code(s): I50.9 - Heart failure, unspecified Status: Acute Assessment and Plan: Patient brought in for SOB. CXR showed cardiomegaly with probable pulmonary edema and small pleural effusions. BNP currently 1490. CT Ch/A/P on 05/27 showed stable lung masses and elevation of the right hemidiaphragm. No previous history of congestive heart failure. Echo 06/28/23: EF>70% with hyperdynamic state and indeterminate diastolic function. Mild valvular disease and moderate pulmonary HTN Acute Diastolic CHF. Started on Lasix IV UOP not accurate but negative fluid balance. Daily weights unchanged. Continue diuresis. (3) Confusion: Code(s): R41.0 - Disorientation, unspecified Status: Acute Assessment and Plan: Family worried about confusion today. Patient clinically much better from yesterday. Probably related to his recent illness and hypercapnia. TSH normal. Consider CVA since he is choking and has AFib Will check MRI brain. Check b12/folate Speech therapy, PT/OT to see (4) CLARISSA (obstructive sleep apnea): Code(s): G47.33 - Obstructive sleep apnea (adult) (pediatric) Status: Acute Assessment and Plan: Patient a unit at home. Discussed with Dr. Dillon. The unit as very little life left. Patient will need new unit at discharge. Continue BiPAP here. Appreciate Pulmonary input. (5) Shortness of breath: Code(s): R06.02 - Shortness of breath Status: Acute Assessment and Plan: SOB felt related to new onset CHF but also with CLARISSA, pulmonary masses and ?phrenic nerve paralysis which are contributing to his dyspnea. As above (6) Anemia: Qualifiers: Anemia type: unspecified type Qualified Code(s): D64.9 - Anemia, unspecified Code(s): D64.9 - Anemia, unspecified Status: Acute Assessment and Plan: Baseline Hgb 11-13 since September of this year. Hgb 8.1 on admission. Suspect reduction in hemoglobin is secondary to GI bleed from his untreated colon cancer. Pantoprazole started Hgb low but stable 7-8. Family still does not want to discontinue anticoagulant as the last time he had this discontinued he had a significant stroke. Continue to trend HH. Check iron studies (7) Atrial fibrillation: Qualifiers: Atrial fibrillation type: longstanding persistent Qualified Code(s): I48.11 - Longstanding persistent atrial fibrillation Code(s): I48.91 - Unspecified atrial fibrillation Status: Acute Assessment and Plan: Patient with chronic AFib. Was having RVR and changed to IV diltiazem. We are continuing Pradaxa per family request. Rate better controlled and changed to oral diltiazem this morning. Continue Toprol XL Monitor on tele (8) Hypertension: Qualifiers: Hypertension type: primary hypertension Qualified Code(s): I10 - Essential (primary) hypertension Code(s): I10 - Essential (primary) hypertension Status: Chronic Assessment and Plan: Patient's blood pressure was reviewed on 07/02 Blood pressure remains well controlled. Will continue current medications. Plan DVT Prophylaxis: Pradaxa Code Status: DNR Subjective Date/time see
[2023-07-02] MEDS: ALBUTEROL SULFATE NEB 2.5 MG/3 ML INH INHALATION (14:05)
--- NOTE | 2023-07-02 14:08 | PCSTNOTE ---
Modified Barium Swallow study was recommended but unable to be completed, unfortunately, due to patient's weight and size not appropriate for both MBS chair and in between the flouroscopy machine and table. Continue assessments at bedside to ensure most appropriate diet and liquid consistencies.
--- NOTE | 2023-07-02 14:09 | PCSTNOTE ---
Please refer to the Bedside Swallow Evaluation in the EMR. Please note, silent aspiration cannot be ruled out at bedside.
[2023-07-02 14:36] LABS: Folic Acid 6.1 ng/mL (2.76->20)
[2023-07-02 15:53] LABS: Iron < 10 ug/dL (49-181)
[2023-07-02 16:36] LABS: Percent Iron Saturation < 3 % (20-50)
[2023-07-02] MEDS: IRON SUCROSE COMPLEX 100 MG in SODIUM CHLORIDE 0.9% IV 50 ML 220 MG IVPB (20:25)
[2023-07-02] MEDS: CYANOCOBALAMIN INJ 1,000 MCG/ML VIAL 1000 MCG IM (20:25)
[2023-07-02] MEDS: ATORVASTATIN 40 MG TABLET PO (20:25)
--- NOTE | 2023-07-02 22:59 | PCRCNOTE ---
Apnea Link in progress @ 9677
[2023-07-03] VITALS (19 sets, daily range): BP systolic 118–149; BP diastolic 55–75; PULSE 74–110; RESP 23–34; TEMP 35.9–37.2; O2SAT 93–100
[2023-07-03 04:28] LABS: Basophils Percent Auto 0.2 % (0.2-1.2); Eosinophils Percent Auto 0.1 % (0-4.4); Hematocrit 25.7 % (42.0-52.0); Hemoglobin 7.5 g/dL (14.0-18.0); Immature Granulocyte Absolute 0.05 K/mm3 (0.00-0.031); Immature Granulocyte Percent A 0.6 % (0-0.5); Lymphocytes Absolute Auto 0.63 K/mm3 (0.9-3.2); Lymphocytes Percent Auto 6.9 % (18.3-44.2); Mean Corpuscular HGB Conc 29.2 g/dl (32-36); Mean Corpuscular Hemoglobin 24.7 pg (26-34); Mean Corpuscular Volume 84.5 fl (80-100); Mean Platelet Volume 11.4 fl (7.4-10.4); Monocytes Absolute Auto 1.3 K/mm3 (0.1-0.6); Monocytes Percent Auto 14.8 % (2.6-8.5); Neutrophils Percent Auto 77.4 % (45.5-73.1); Platelet Count Result 179 k/mm3 (150-375); Red Blood Count 3.04 M/mm3 (4.6-6.20); Red Cell Distribution Width 25.5 % (11.5-14.5); White Blood Count 9.1 K/mm3 (4.5-10.0)
[2023-07-03 04:48] LABS: Alanine Aminotransferase 17 U/L (6-50); Albumin Level 2.8 g/dL (3.5-5.1); Alkaline Phosphatase 65 U/L (38-126); Anion Gap 4 mmol/L (8-16); Aspartate Amino Transferase 21 U/L (17-59); Bilirubin,Total 1.1 mg/dL (0.2-1.3); Blood Urea Nitrogen 23 mg/dL (9-20); Calcium 8.6 mg/dL (8.4-10.2); Carbon Dioxide 36 mmol/L (22-30); Chloride 99 mmol/L (98-107); Estimated CRCL calculation 79 ml/min; Estimated Glomerular Filt Rate > 60; Glucose 113 mg/dL (65-110); Potassium 3.4 mmol/L (3.4-5.0); Sodium 139 mmol/L (137-145)
[2023-07-03 05:32] LABS: Anisocytosis 1+ (NORMAL); Hypochromasia 2+ (NORMAL); Platelet Estimate Adequate (Adequate); Schistocytes Rare (NORMAL); Target Cells 1+ (NORMAL)
--- NOTE | 2023-07-03 09:34 | PM.PNPUL ---
Progress Note: A&P Assessment and Plan (1) CLARISSA (obstructive sleep apnea): Code(s): G47.33 - Obstructive sleep apnea (adult) (pediatric) Status: Acute Assessment and Plan: The son and daughter tell me he was diagnosed with obstructive sleep apnea proximally 10 years ago with a sleep study and was prescribed a nasal CPAP unit. He has worn this regularly for the last 10 years except for the last week. He had been sick with shortness of breath and was not sleeping in his bed which is where his CPAP is set up. He was sleeping in a wheelchair and was not wearing it for approximately 5 out of the 7 nights before admission. [email or web address] is his [employer] company. They are not sure if his PCP checks his downloads. Patient presented with a serum bicarbonate of 34. He had altered mental status on 07/01/2023 with a blood gas of 7.25/85/61. the patient was placed on BiPAP rate of 24, pressures 26/8 with worsening PaCO2 and a blood gas of 7.20, 110, 128. The patient was then switched to a noninvasive ventilator with the AVAPS mode with improvement in his PaCO2. 07/02/23: Patient wore the noninvasive ventilator overnight with AVAPS set rate of 22, tidal volume 500, EPAP 5, minimal inspiratory pressure 6, mask Amal inspiratory pressure 30, inspiratory time 0.9 seconds, rise of 3, 30% FiO2 overnight with a blood gas this morning of 7.49/47/86. I plugged in his home AirSense 10 ResMed med machine and over the last 30 days he has worn the machine greater than 4 hours at 19 of 30 days with an average of 5.3 hours. His pressure is 8. His AHI is 6.4 with an apnea index of 5.2 and a central apnea index of 0. 07/02: The patient may have obesity hypoventilation syndrome. He presented with fluid overload. He has received diuresis with cumulative diuresis -5.5 L since admission. His weight on admission was 160 kg and today's weight is 161.2 kg. BNP today is minimally improved from 14 90 on admission to 1300 today. His free T4 is 1.38 on 07/02, normal. His TSH is 2.53 on 06/29, normal. There is no evidence of an active infection. The patient has no history of tobacco use and no history of COPD or asthma. Currently the patient is on room air during the day with saturations 94-96%%. His persistent alteration in communication and mental status is not related to a respiratory issue. Plan: I will check a repeat chest x-ray to assess his congestion. Tonight I will continue the noninvasive ventilation with the AVAPS mode and room air and perform apnea link. As he continues to improve I will check his daytime ventilation with a room gas ABG to determine if he has obesity hypoventilation syndrome. I have contacted our clinical coordinator to obtain a download from his [employer] company, [employer]. Agree with as aggressive diuresis as tolerated by his cardiac and renal systems per hospitalist team. Currently the patient is on Lasix 40 IV q.day. 07/03: Patient's family members are in the room and states that he is breathing back to his normal. They state his communication skills are better than yesterday. He showed me 2 fingers and today he wiggled his toes to verbal commands which is improved. He is afebrile. White blood cell count 9.1, creatinine 1.0. Patient wore the hospital noninvasive ventilator with the above-mentioned settings and 21% FiO2 last night. He had an overnight oximetry with recording duration of 7 hours and 58 minutes. Average saturation 92%. Low saturation 85%. Time with saturation less than or equal to 88% was 19 minutes. The patient tells me he is doing fine. Is in no respiratory distress. Cumulative diuresis since admission is-6.8 L. his weight is 159.8 kilos. Plan: The patient is breathing back at his baseline on room air. I will check an ABG today at 12 noon to assess for chronic hypercarbic respiratory failure. If he has chronic hypercarbic respiratory failure will initiate process to have home noninvasive ventilato
[2023-07-03] MEDS: GABAPENTIN 400 MG CAPSULE PO ×3 (09:50→17:01)
[2023-07-03] MEDS: PANTOPRAZOLE SODIUM IV 40 MG VIAL IV PUSH ×2 (09:50→20:54)
[2023-07-03] MEDS: IRON SUCROSE COMPLEX 100 MG in SODIUM CHLORIDE 0.9% IV 50 ML 220 MG IVPB (09:50)
[2023-07-03] MEDS: FUROSEMIDE INJ 40 MG/4 ML VIAL IV PUSH ×2 (09:50→17:00)
[2023-07-03] MEDS: METOPROLOL SUCCINATE EXT REL 25 MG TABCR PO (09:50)
[2023-07-03] MEDS: DABIGATRAN ETEXILATE 150 MG CAPSULE PO ×2 (09:50→20:54)
[2023-07-03] MEDS: dilTIAZem HCL CD 180 MG CAP.24HR 360 MG PO (09:51)
[2023-07-03 12:12] LABS: Alveolar/Arterial O2 Gradient 37.2 mmHg; Base Excess ABG 11.2 mEq/l (+/-2.0); Fractional Inspired Oxygen 21 %; HCO3 ABG 35.1 mEq/l (22.0-26.0); Oxygen Content ABG 11.6 %vol (16.0-22.0); Oxygen Saturation ABG 93.3 % (95.0-100.0); Oxyhemoglobin 90.1 % THb (90.0-100.0); PCO2 ABG 43.7 mmHg (35.0-45.0); PO2 ABG 60.2 mmHg (80.0-100.0); PO2 FiO2 Ratio Arterial Blood 2.87 %; Total Hemoglobin 9.1 g/dL (12.0-18.0)
[2023-07-03 12:15] LABS: Device ROOM AIR; Modified Allen's Test Pass; Site Drawn LEFT RADIAL; pH ABG 7.523 (7.350-7.450)
--- NOTE | 2023-07-03 12:35 | PM.IMPN ---
Progress Note: A&P Assessment and Plan (1) Acute hypercapnic respiratory failure: Code(s): J96.02 - Acute respiratory failure with hypercapnia Status: Acute Assessment and Plan: Patient has CLARISSA and is mostly compliant with his BiPAP except not wearing for the past week priro to admission. 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 ABG 7.25/85/61 on VM Patient moved to IMU and placed on BiPAP. With setting changes, ABG improved. ABG today 7.49/47/86 30% FiO2 Pulmonary consult to help determine Home needs. (2) Acute CHF (congestive heart failure): Qualifiers: Heart failure type: diastolic Qualified Code(s): I50.31 - Acute diastolic (congestive) heart failure Code(s): I50.9 - Heart failure, unspecified Status: Acute Assessment and Plan: Patient brought in for SOB. CXR showed cardiomegaly with probable pulmonary edema and small pleural effusions. BNP currently 1490. CT Ch/A/P on 05/27 showed stable lung masses and elevation of the right hemidiaphragm. No previous history of congestive heart failure. Echo 06/28/23: EF>70% with hyperdynamic state and indeterminate diastolic function. Mild valvular disease and moderate pulmonary HTN Acute Diastolic CHF. Started on Lasix IV UOP not accurate but negative fluid balance. Daily weights unchanged. Continue diuresis. (3) Confusion: Code(s): R41.0 - Disorientation, unspecified Status: Acute Assessment and Plan: Family worried about confusion today. Patient clinically much better from yesterday. Probably related to his recent illness and hypercapnia. TSH normal. Consider CVA since he is choking and has AFib Will check MRI brain. Check b12/folate Speech therapy, PT/OT to see MRI canceled as patient is too large for machine (4) CLARISSA (obstructive sleep apnea): Code(s): G47.33 - Obstructive sleep apnea (adult) (pediatric) Status: Acute Assessment and Plan: Patient a unit at home. Discussed with Dr. Dillon. The unit as very little life left. Patient will need new unit at discharge. Continue BiPAP here. Appreciate Pulmonary input. (5) Shortness of breath: Code(s): R06.02 - Shortness of breath Status: Acute Assessment and Plan: SOB felt related to new onset CHF but also with CLARISSA, pulmonary masses and ?phrenic nerve paralysis which are contributing to his dyspnea. As above (6) Anemia: Qualifiers: Anemia type: unspecified type Qualified Code(s): D64.9 - Anemia, unspecified Code(s): D64.9 - Anemia, unspecified Status: Acute Assessment and Plan: Baseline Hgb 11-13 since September of this year. Hgb 8.1 on admission. Suspect reduction in hemoglobin is secondary to GI bleed from his untreated colon cancer. Pantoprazole started Hgb low but stable 7-8. Family still does not want to discontinue anticoagulant as the last time he had this discontinued he had a significant stroke. Continue to trend HH. Check iron studies 07/03: iron infusions started yesterday and dose increased starting tomorrow, hemoglobin 7.5 with a.m. labs (7) Atrial fibrillation: Qualifiers: Atrial fibrillation type: longstanding persistent Qualified Code(s): I48.11 - Longstanding persistent atrial fibrillation Code(s): I48.91 - Unspecified atrial fibrillation Status: Acute Assessment and Plan: Patient with chronic AFib. Was having RVR and changed to IV diltiazem. We are continuing Pradaxa per family request. Rate better controlled and changed to oral diltiazem this morning. Continue Toprol XL Monitor on tele (8) Hypertension: Qualifiers: Hypertension type: primary hypertension Qualified Code(s): I10 - Essential (primary) hypertension Code(s): I10 - Essential (primary) hypertension Status: Chronic Assessment and Plan: Patient's blood pressure was reviewed on 07/03 Blood pressur
[2023-07-03] MEDS: ATORVASTATIN 40 MG TABLET PO (20:54)
[2023-07-04] VITALS (14 sets, daily range): BP systolic 103–154; BP diastolic 57–78; PULSE 72–111; RESP 20–28; TEMP 36.1–36.6; O2SAT 92–100; BMI 49.1
[2023-07-04 05:03] LABS: Basophils Percent Auto 0.3 % (0.2-1.2); Eosinophils Absolute Auto 0.1 K/mm3 (0-0.3); Hematocrit 26.4 % (42.0-52.0); Hemoglobin 7.6 g/dL (14.0-18.0); Immature Granulocyte Absolute 0.06 K/mm3 (0.00-0.031); Immature Granulocyte Percent A 0.6 % (0-0.5); Lymphocytes Absolute Auto 0.68 K/mm3 (0.9-3.2); Mean Corpuscular HGB Conc 28.8 g/dl (32-36); Mean Corpuscular Hemoglobin 24.2 pg (26-34); Mean Corpuscular Volume 84.1 fl (80-100); Mean Platelet Volume 11.9 fl (7.4-10.4); Monocytes Absolute Auto 1.2 K/mm3 (0.1-0.6); Monocytes Percent Auto 12.4 % (2.6-8.5); Neutrophils Absolute Auto 7.7 K/mm3 (1.3-6.7); Neutrophils Percent Auto 78.7 % (45.5-73.1); Platelet Count Result 208 k/mm3 (150-375); Red Blood Count 3.14 M/mm3 (4.6-6.20); Red Cell Distribution Width 25.2 % (11.5-14.5); White Blood Count 9.7 K/mm3 (4.5-10.0)
[2023-07-04 05:13] LABS: Alanine Aminotransferase 20 U/L (6-50); Albumin Level 2.8 g/dL (3.5-5.1); Alkaline Phosphatase 68 U/L (38-126); Aspartate Amino Transferase 30 U/L (17-59); Bilirubin,Total 0.9 mg/dL (0.2-1.3); Blood Urea Nitrogen 23 mg/dL (9-20); Calcium 8.7 mg/dL (8.4-10.2); Carbon Dioxide > 40 mmol/L (22-30); Chloride 96 mmol/L (98-107); Estimated CRCL calculation 79 ml/min; Estimated Glomerular Filt Rate > 60; Glucose 102 mg/dL (65-110); Potassium 3.3 mmol/L (3.4-5.0); Sodium 137 mmol/L (137-145)
[2023-07-04 05:33] LABS: Platelet Estimate Adequate (Adequate)
[2023-07-04 05:34] LABS: Anisocytosis 1+ (NORMAL); Hypochromasia 2+ (NORMAL); Polychromasia 1+ (NORMAL); Stomatocytes 1+ (NORMAL); Target Cells 1+ (NORMAL)
[2023-07-04 05:35] LABS: Schistocytes Rare (NORMAL)
[2023-07-04 05:52] LABS: Alveolar/Arterial O2 Gradient 81.8 mmHg; Base Excess ABG 10.6 mEq/l (+/-2.0); Fractional Inspired Oxygen 28 %; HCO3 ABG 35.3 mEq/l (22.0-26.0); Oxygen Content ABG 11.7 %vol (16.0-22.0); Oxygen Saturation ABG 92.8 % (95.0-100.0); PO2 ABG 61.2 mmHg (80.0-100.0); PO2 FiO2 Ratio Arterial Blood 2.19 %; Total Hemoglobin 9.2 g/dL (12.0-18.0); pH ABG 7.484 (7.350-7.450)
[2023-07-04 08:31] LABS: Device NON-INVASIVE VENT
--- NOTE | 2023-07-04 08:35 | PM.IMPN ---
Progress Note: A&P Assessment and Plan (1) Acute hypercapnic respiratory failure: Code(s): J96.02 - Acute respiratory failure with hypercapnia Status: Acute Assessment and Plan: Patient has CLARISSA and is mostly compliant with his BiPAP except not wearing for the past week priro to admission. He had clinical worsening opener tender hours of 07/01. ABG 7.25/85/61 on VM Patient moved to IMU and placed on BiPAP. With setting changes, ABG improved. ABG today 7.49/47/86 30% FiO2 Pulmonary consulted and arrangement for AVAPS at discharge Going to nursing facility and hence will be arranged at discharge (2) Acute CHF (congestive heart failure): Qualifiers: Heart failure type: diastolic Qualified Code(s): I50.31 - Acute diastolic (congestive) heart failure Code(s): I50.9 - Heart failure, unspecified Status: Acute Assessment and Plan: Patient brought in for SOB. CXR showed cardiomegaly with probable pulmonary edema and small pleural effusions. BNP currently 1490. CT Ch/A/P on 05/27 showed stable lung masses and elevation of the right hemidiaphragm. No previous history of congestive heart failure. Echo 06/28/23: EF>70% with hyperdynamic state and indeterminate diastolic function. Mild valvular disease and moderate pulmonary HTN Acute Diastolic CHF. Started on Lasix IV UOP not accurate but negative fluid balance. Daily weights unchanged. Continue diuresis. Will switch to oral (3) Confusion: Code(s): R41.0 - Disorientation, unspecified Status: Acute Assessment and Plan: Probably related to his recent illness and hypercapnia. TSH normal. Consider CVA since he is choking and has AFib Will check MRI brain. Check b12/folate Speech therapy, PT/OT to see MRI canceled as patient is too large for machine Disorientation improving (4) CLARISSA (obstructive sleep apnea): Code(s): G47.33 - Obstructive sleep apnea (adult) (pediatric) Status: Acute Assessment and Plan: Patient a unit at home. Patient will need new unit at discharge. Continue BiPAP here. Appreciate Pulmonary input. (5) Shortness of breath: Code(s): R06.02 - Shortness of breath Status: Acute Assessment and Plan: SOB felt related to new onset CHF but also with CLARISSA, pulmonary masses and ?phrenic nerve paralysis which are contributing to his dyspnea. As above (6) Anemia: Qualifiers: Anemia type: unspecified type Qualified Code(s): D64.9 - Anemia, unspecified Code(s): D64.9 - Anemia, unspecified Status: Acute Assessment and Plan: Baseline Hgb 11-13 since September of this year. Hgb 8.1 on admission. Suspect reduction in hemoglobin is secondary to GI bleed from his untreated colon cancer. Pantoprazole started Hgb low but stable 7-8. Family still does not want to discontinue anticoagulant as the last time he had this discontinued he had a significant stroke. Continue to trend HH. Check iron studies 07/03: iron infusions started No signs of active bleeding continue to monitor (7) Atrial fibrillation: Qualifiers: Atrial fibrillation type: longstanding persistent Qualified Code(s): I48.11 - Longstanding persistent atrial fibrillation Code(s): I48.91 - Unspecified atrial fibrillation Status: Acute Assessment and Plan: Patient with chronic AFib. Was having RVR and changed to IV diltiazem. We are continuing Pradaxa per family request. Rate better controlled and changed to oral diltiazem Continue Toprol XL Monitor on tele (8) Hypertension: Qualifiers: Hypertension type: primary hypertension Qualified Code(s): I10 - Essential (primary) hypertension Code(s): I10 - Essential (primary) hypertension Status: Chronic Assessment and Plan: Patient's blood pressure was reviewed Blood pressure remains well controlled. Will continue current medications. Plan
[2023-07-04 08:37] LABS: Non-Invasive Vent Rate 22 /MIN
[2023-07-04 08:38] LABS: Non-Invasive Expiratory Pressure 5 CMH2O
--- NOTE | 2023-07-04 08:49 | PCRCNOTE ---
Order for home Trilogy faxed to [facility].
--- NOTE | 2023-07-04 09:05 | PM.PNPUL ---
Progress Note: A&P Assessment and Plan (1) CLARISSA (obstructive sleep apnea): Code(s): G47.33 - Obstructive sleep apnea (adult) (pediatric) Status: Acute Assessment and Plan: The son and daughter tell me he was diagnosed with obstructive sleep apnea proximally 10 years ago with a sleep study and was prescribed a nasal CPAP unit. He has worn this regularly for the last 10 years except for the last week. He had been sick with shortness of breath and was not sleeping in his bed which is where his CPAP is set up. He was sleeping in a wheelchair and was not wearing it for approximately 5 out of the 7 nights before admission. [employer] is his [employer]. They are not sure if his PCP checks his downloads. Discussed with Raheem Ruiz, will follow with you. (2) Obesity hypoventilation syndrome: Code(s): E66.2 - Morbid (severe) obesity with alveolar hypoventilation Status: Acute Assessment and Plan: Patient has obesity hypoventilation syndrome with morbid obesity with BMI of 49.1, no thyroid disease, he has been diuresed and is breathing at his baseline.? Patient has a blood gas on presentation of 7.25/85/61 on 30% FiO2.? Patient was initially treated with BiPAP with a pH of 7.43/66/65 demonstrating chronic hypercarbic respiratory failure with elevated CO2 despite BiPAP.? He would benefit from noninvasive ventilation to prevent further deterioration and subsequent hospitalizations.? He could not tolerate the BiPAP pressures and he is tolerating noninvasive ventilator with the AVAPS mode and a blood gas of 7.48/48/61 at the end of the night on the AVAPS mode.? Patient presented with a serum bicarbonate of 34. He had altered mental status on 07/01/2023 with a blood gas of 7.25/85/61. the patient was placed on BiPAP rate of 24, pressures 26/8 with worsening PaCO2 and a blood gas of 7.20, 110, 128. The patient was then switched to a noninvasive ventilator with the AVAPS mode with improvement in his PaCO2. 07/02/23: Patient wore the noninvasive ventilator overnight with AVAPS set rate of 22, tidal volume 500, EPAP 5, minimal inspiratory pressure 6, mask Amal inspiratory pressure 30, inspiratory time 0.9 seconds, rise of 3, 30% FiO2 overnight with a blood gas this morning of 7.49/47/86. I plugged in his home AirSense 10 ResMed med machine and over the last 30 days he has worn the machine greater than 4 hours at 19 of 30 days with an average of 5.3 hours. His pressure is 8. His AHI is 6.4 with an apnea index of 5.2 and a central apnea index of 0. 07/02: The patient may have obesity hypoventilation syndrome. He presented with fluid overload. He has received diuresis with cumulative diuresis -5.5 L since admission. His weight on admission was 160 kg and today's weight is 161.2 kg. BNP today is minimally improved from 14 90 on admission to 1300 today. His free T4 is 1.38 on 07/02, normal. His TSH is 2.53 on 06/29, normal. There is no evidence of an active infection. The patient has no history of tobacco use and no history of COPD or asthma. Currently the patient is on room air during the day with saturations 94-96%%. His persistent alteration in communication and mental status is not related to a respiratory issue. Plan: I will check a repeat chest x-ray to assess his congestion. Tonight I will continue the noninvasive ventilation with the AVAPS mode and room air and perform apnea link. As he continues to improve I will check his daytime ventilation with a room gas ABG to determine if he has obesity hypoventilation syndrome. I have contacted our clinical coordinator to obtain a download from his [employer] company, [employer] Patient. Agree with as aggressive diuresis as tolerated by his cardiac and renal systems per hospitalist team. Currently the patient is on Lasix 40 IV q.day. 07/03: Patient's family members are in the room and states that he is breathing back to his normal. They state his communication skill
[2023-07-04] MEDS: FUROSEMIDE INJ 40 MG/4 ML VIAL IV PUSH (09:36)
[2023-07-04] MEDS: GABAPENTIN 400 MG CAPSULE PO ×3 (09:36→16:52)
[2023-07-04] MEDS: METOPROLOL SUCCINATE EXT REL 25 MG TABCR PO (09:36)
[2023-07-04] MEDS: DABIGATRAN ETEXILATE 150 MG CAPSULE PO ×2 (09:36→20:08)
[2023-07-04] MEDS: PANTOPRAZOLE SODIUM IV 40 MG VIAL IV PUSH (09:36)
[2023-07-04] MEDS: IRON SUCROSE COMPLEX 500 MG in SODIUM CHLORIDE 0.9% IV 250 ML 78.57 MG IVPB (09:37)
[2023-07-04] MEDS: dilTIAZem HCL CD 180 MG CAP.24HR 360 MG PO (09:37)
--- NOTE | 2023-07-04 14:17 | PCSTNOTE ---
Therapist assessed Soft and Bite-Sized Level 6 and Regular Liquids at lunch. Throat clear one time. No coughing or other signs of distress noted. Allow diet to advance to these consistencies. Will continue to monitor while inpatient.
[2023-07-04] MEDS: ATORVASTATIN 40 MG TABLET PO (20:08)
--- NOTE | 2023-07-04 22:09 | PC.NURSE ---
This patient, Rufus Scanlon, was transferred to [[id number]] on 07/04/23 at 2210. Personal belongings sent with patient. Report given to [ash [email or web address] ]. Appropriate documentation sent with patient.
[2023-07-05] VITALS (9 sets, daily range): BP systolic 109–135; BP diastolic 51–66; PULSE 75–96; RESP 16–30; TEMP 36.4–36.6; O2SAT 92–98
[2023-07-05 06:27] LABS: Basophils Percent Auto 0.4 % (0.2-1.2); Eosinophils Absolute Auto 0.2 K/mm3 (0-0.3); Eosinophils Percent Auto 2.3 % (0-4.4); Hematocrit 26.8 % (42.0-52.0); Hemoglobin 7.6 g/dL (14.0-18.0); Immature Granulocyte Absolute 0.08 K/mm3 (0.00-0.031); Lymphocytes Absolute Auto 0.78 K/mm3 (0.9-3.2); Lymphocytes Percent Auto 9.6 % (18.3-44.2); Mean Corpuscular HGB Conc 28.4 g/dl (32-36); Mean Corpuscular Hemoglobin 24.2 pg (26-34); Mean Corpuscular Volume 85.4 fl (80-100); Mean Platelet Volume 11.3 fl (7.4-10.4); Monocytes Percent Auto 12.1 % (2.6-8.5); Neutrophils Percent Auto 74.6 % (45.5-73.1); Nucleated Red Blood Cells Perc 0.2 % (0.0-0.2); Platelet Count Result 211 k/mm3 (150-375); Red Blood Count 3.14 M/mm3 (4.6-6.20); Red Cell Distribution Width 25.7 % (11.5-14.5); White Blood Count 8.1 K/mm3 (4.5-10.0)
[2023-07-05 06:39] LABS: Alanine Aminotransferase 26 U/L (6-50); Albumin Level 2.7 g/dL (3.5-5.1); Alkaline Phosphatase 66 U/L (38-126); Anion Gap 3 mmol/L (8-16); Aspartate Amino Transferase 40 U/L (17-59); Blood Urea Nitrogen 22 mg/dL (9-20); Calcium 8.3 mg/dL (8.4-10.2); Carbon Dioxide 37 mmol/L (22-30); Chloride 96 mmol/L (98-107); Estimated CRCL calculation 87 ml/min; Estimated Glomerular Filt Rate > 60; Glucose 96 mg/dL (65-110); Potassium 3.1 mmol/L (3.4-5.0); Sodium 136 mmol/L (137-145)
[2023-07-05] MEDS: GABAPENTIN 400 MG CAPSULE PO ×3 (08:28→17:11)
[2023-07-05] MEDS: FUROSEMIDE 40 MG TABLET PO (08:28)
[2023-07-05] MEDS: DABIGATRAN ETEXILATE 150 MG CAPSULE PO ×2 (08:28→19:33)
[2023-07-05] MEDS: PANTOPRAZOLE 40 MG TABLET PO (08:28)
[2023-07-05] MEDS: METOPROLOL SUCCINATE EXT REL 25 MG TABCR PO (08:28)
[2023-07-05] MEDS: dilTIAZem HCL CD 180 MG CAP.24HR 360 MG PO (08:28)
[2023-07-05 08:56] LABS: Anisocytosis 2+ (NORMAL); Hypochromasia 2+ (NORMAL); Platelet Estimate Adequate (Adequate); Schistocytes None Seen (NORMAL)
[2023-07-05] MEDS: IRON SUCROSE COMPLEX 500 MG in SODIUM CHLORIDE 0.9% IV 250 ML 78.57 MG IVPB (09:43)
[2023-07-05] MEDS: POTASSIUM CHLORIDE 20 MEQ ER TABLET 40 MEQ PO (09:48)
--- NOTE | 2023-07-05 14:10 | PM.DS ---
DS: Admitting Diagnosis Discharge Date 07/05/2023 Admitting Diagnosis Confusion DS: Discharge Diagnosis Discharge Diagnosis (1) Acute hypercapnic respiratory failure: Code(s): J96.02 - Acute respiratory failure with hypercapnia Status: Acute (2) Acute CHF (congestive heart failure): Qualifiers: Heart failure type: diastolic Qualified Code(s): I50.31 - Acute diastolic (congestive) heart failure Code(s): I50.9 - Heart failure, unspecified Status: Acute (3) Confusion: Code(s): R41.0 - Disorientation, unspecified Status: Acute (4) CLARISSA (obstructive sleep apnea): Code(s): G47.33 - Obstructive sleep apnea (adult) (pediatric) Status: Acute (5) Shortness of breath: Code(s): R06.02 - Shortness of breath Status: Acute (6) Anemia: Qualifiers: Anemia type: unspecified type Qualified Code(s): D64.9 - Anemia, unspecified Code(s): D64.9 - Anemia, unspecified Status: Acute (7) Atrial fibrillation: Qualifiers: Atrial fibrillation type: longstanding persistent Qualified Code(s): I48.11 - Longstanding persistent atrial fibrillation Code(s): I48.91 - Unspecified atrial fibrillation Status: Acute (8) Hypertension: Qualifiers: Hypertension type: primary hypertension Qualified Code(s): I10 - Essential (primary) hypertension Code(s): I10 - Essential (primary) hypertension Status: Chronic DS: Summary Hospital Course Hospital Course: Patient was brought in for shortness of breath and confusion. On evaluation he had chest x-ray that showed cardiomegaly with probable pulmonary edema and small pleural effusion. BNP [address] chest abdomen pelvis showed stable lung mass and elevation of the right day hemidiaphragm. No previous history of congestive heart failure. Echo 06/28/2023 showed ejection fraction more than 70% with hyperdynamic state and indeterminate diastolic function. Mild valvular disease and moderate pulmonary hypertension. Diagnosis acute diastolic heart failure started on Lasix IV. On 07/01/2023 clinical worsening with confusion was noted to have hypercapnic respiratory failure. Was placed on BiPAP. Pulmonary was consulted. Changed to AVAPS. Has obesity hypoventilation syndrome and arrangement for AVAPS at discharge was made with the [facility] Pulmonary team. He improved clinically with normalization of his ABG. Leg swelling improved. His Lasix was switched to oral. Also has anemia baseline hemoglobin 11-13 since September of this year hemoglobin 8.1 on admission. He does have untreated colon cancer and likely reduction in hemoglobin related to this. Ppi was added. His hemoglobin remained low but stable between 7-8. Family did not wanted to discontinue anticoagulant because of significant stroke risk. Iron infusion was started. Will stay on iron sulfate. He also has history of chronic AFib for which he is on anticoagulant with Pradaxa. Also on Toprol and Cardizem and remained on the medication during the hospital stay. He is do not resuscitate. He will be transferred to nursing home facility for further rehabilitation. Time Spent with Patient Time attestation: Total time spent providing and/or coordinating discharge services: 45 minutes Exam Narrative: Gen - NARD lying semi-recumbent in bed Chest - distant clear BS anteriorly with crackles L>R flanks. tachypneic at times CV - irregularly irregular. Tele showing AFib with controlled rate. Abd - Soft, obese, diffusely tender without focal area of concern. No rebound or guarding. +BS Ext - trace edema Neuro - Alert. conversant. follows commands. Psych - anxious at times Skin - Warm and dry DS: Data Data Completed and Pending Completed studies during hospitalization: Exam Type: ? ? CA echo dop color flow w con Study Info Indications ?? ? - imaging c/f HF Complete two-dimensional, color flow and Doppler tr
[2023-07-05] MEDS: ATORVASTATIN 40 MG TABLET PO (19:33)
== END 2023-07-05 20:30 | DRG 291 ==
LOC: ANHED 15:27 → ANHIMU 16:05 → ANH3MEDSUR 18:10 → ANHIMU 07-01 06:56 → ANH2MED 07-04 22:50
PROVIDERS: Internal Medicine; Internal Medicine Pulmonary Disease; Nurse Practitioner; Student in an Organized Health Care Education/Training Program; Admitting Provider Hospitalist; Emergency Provider Physician Assistant; PCP Family Medicine; Visit Provider Internal Medicine
DX: I11.0 Hypertensive heart disease with heart failure (principal); I50.31 Acute diastolic (congestive) heart failure; J96.02 Acute respiratory failure with hypercapnia; D62 Acute posthemorrhagic anemia; I48.11 Longstanding persistent atrial fibrillation; K92.2 Gastrointestinal hemorrhage, unspecified; Z68.42 Body mass index [BMI] 45.0-49.9, adult; E66.2 Morbid (severe) obesity with alveolar hypoventilation; C18.9 Malignant neoplasm of colon, unspecified; Z20.822 Contact with and (suspected) exposure to COVID-19; D64.9 Anemia, unspecified; R40.4 Transient alteration of awareness; E78.5 Hyperlipidemia, unspecified; M48.00 Spinal stenosis, site unspecified; H26.9 Unspecified cataract; G62.9 Polyneuropathy, unspecified; Z66 Do not resuscitate; Z96.649 Presence of unspecified artificial hip joint; I69.320 Aphasia following cerebral infarction; Z99.3 Dependence on wheelchair; Z79.01 Long term (current) use of anticoagulants; Z79.02 Long term (current) use of antithrombotics/antiplatelets
CPT/HCPCS: 36415; 36600; 70450; 71045; 71046; 80053; 82375; 82607; 82728; 82746; 82805; 83050; 83540; 83550; 83605; 83735; 83880; 84439; 84443; 84484; 85025; 85610; 85730; 87637; 92526; 92610; 93005; 94002; 94003; 94640; 94660; 94762; 96374; 96375; 96376; 97110; 97161; 97166; 97530; 99285; A9270; C8929; C9113; G0378; J1650; J1756; J1940; J3420; J7050; Q9957

== ENCOUNTER 2023-08-01 20:21 | Inpatient (IN) | payer MEDICARE, SELFPAY ==
[2023-08-01] VITALS (8 sets, daily range): BP systolic 111–133; BP diastolic 73–82; PULSE 61–77; RESP 20–25; TEMP 36.3; O2SAT 96–100
--- NOTE | ~2023-08-01 | XR_ITS ---
EXAMINATION: XR chest PICC line Exam Date/Time: 08/06/2023 16:00 PLASTIC EXTRUSION OPERATOR HISTORY: PICC line placement Comparison: 07/02/2023. RESULT: Lines, tubes, and devices: Right upper extremity PICC terminating in the mid SVC. Lungs and pleura: Streaky bibasilar subsegmental opacities. Minimal left and possible mild right cos tophrenic angle blunting noting the right lateral chest is partially excluded from the [id number]. Cardiomediastinal silhouette: Stable. Other: No acute osseous or upper abdominal finding. IMPRESSION: Right upper extremity PICC in good position. Subsegmental bibasilar atelectasis/consolidation. Possib le small bilateral pleural effusions. Reviewed, dictated and finalized at location K. TIC EXTRUSION OPERATOR IMPRESSION: Right upper extremity PICC in good position. Subsegmental bibasilar atelectasis /consolidation. Possible small bilateral pleural effusions.
--- NOTE | ~2023-08-01 | CT_ITS ---
EXAMINATION: CT abdomen pelvis w con DATE: 08/01/2023 22:13 INDICATION: Deep sacral decubitus ulcer. TECHNIQUE: Computed tomography (CT) of the abdomen and pelvis was performed with 100 mL Omnipaque 350 intravenous contrast. Automated exposure control and iterative reconstruction technique were employe d. The dose-length product was 1514.07 mGy-cm. COMPARISON: CT abdomen and pelvis 05/27/2023, 10/26/22 FINDINGS: The visualized portions of the lung bases demonstrate mild atelectasis. Calcified left lung nodules and calcified left hilar and mediastinal lymph nodes are consistent with old granulomatous d isease. There are small pleural effusions. There is left atrial enlargement of the heart. There are c oronary artery calcifications. No pericardial effusion. There is a 3.3 x 1.9 cm right infrahilar lymp h node. There is a 2.8 x 2.1 cm right retrocrural node. The liver is normal. Calcifications in the sp mario alberto are consistent with old granulomatous disease. The gallbladder, pancreas, and adrenal glands are normal. There are cysts in the kidneys measuring up to 10.1 cm on the right. The prostate is mildly enlarged. There are scattered diverticula in the colon. There is wall thickening of the sigmoid colon . There are no dilated loops of bowel. Aortic atherosclerosis is noted. There are bilateral total hip arthroplasties. There is severe thoracic and lumbar spondylosis. There are bridging endplate osteoph ytes at multiple levels in the spine, consistent with diffuse idiopathic skeletal hyperostosis (DISH) . There is a sacral ulcer extending to bone with shallow erosion of bone, consistent with osteomyelit is. IMPRESSION: 1. Sacral decubitus ulcer with inferior sacral osteomyelitis. 2. Wall thickening of sigmoid colon, consistent with colitis. 3. Right infrahilar and right retrocrural lymphadenopathy, stable from 10/26/2022, which may be reacti ve lymphadenopathy or metastatic disease. 4. Small pleural effusions. Reviewed, dictated and finalized at location E. GER STUDIO IMPRESSION: 1. Sacral decubitus ulcer with inferior sacral osteomyelitis. 2. Wall thickening of sigmoid colon, consistent with colitis. 3. Right infrahilar and right retrocrural lymphadenopathy, stable from 3, which may be reactive lymphadenopathy or metastatic disease. 4. Small pleural effusions.
--- NOTE | 2023-08-01 20:41 | ED.WOUNDLAC ---
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 He is under contact precautions for MRSA and has had worsening of his sacral decubitus ulcer. Patient does not arrive with documentation indicating antibiotic regimen but family believes it was a powder (possibly Flagyl) and another antibiotic. No report of fevers. Patient's family has a picture of the wound from earlier which had purulent drainage. Related Data Home Medications Medication Instructions Recorded Confirmed diltiazem HCl 360 mg 360 mg PO DAILY 09/18/22 06/28/23 capsule,extended release 24 hr (Cardizem CD) gabapentin 400 mg capsule 400 mg PO TID 09/18/22 06/28/23 metoprolol succinate 25 mg 25 mg PO DAILY 09/18/22 06/28/23 tablet,extended release 24 hr dabigatran etexilate 150 mg 150 mg PO BID 06/28/23 06/28/23 capsule (Pradaxa) famotidine 40 mg tablet 40 mg PO DAILY 06/28/23 06/28/23 ondansetron 4 mg disintegrating 4 mg PO DAILY 06/28/23 06/28/23 tablet Allergies Allergy/AdvReac Type Severity Reaction Status Date / Time No Known Allergies Allergy Mild Verified 01/13/23 12:50 [facility] Past Medical History Medical History (Updated 08/01/23 @ 23:27 by Silvia Alvarado MD) Acute CHF (congestive heart failure) Acute CVA (cerebrovascular accident) Anemia Atrial fibrillation Cataracts, bilateral Colon cancer Hyperlipidemia Hypertension Neuropathy Spinal stenosis Surgical History Surgical History History of hip replacement, total 4 times History of removal of pigmented skin lesion Family History Family History Sibling Heart failure Social History Social History Social History: The patient has two adopted children and is . He lives alone. Currently living at [facility]. 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 Code status full code Smoking status: Never smoker Alcohol intake: never Substance use: never Do You Feel Safe in your Home?: Yes Lack of Transportation: No Lack of Food: Never True Current Housing: I Have Housing Concerned About Future Housing: No Difficulty Paying Gas/Electric Bills: No Difficulty Paying for Meds: No Currently Unemployed: No Education: Master's Degree or Higher Difficulty w/ Childcare or Family Care: No Spiritual care concerns: No Exam Narrative: GENERAL: well-nourished, and in no acute distress. HEAD: Normocephalic, atraumatic. EYES: Non injected, non icteric ENT: Nares clear, no rhinorrhea or epistaxis. NECK: Supple. CHEST: No respiratory distress. HEART: Regular rate and rhythm. . ABDOMEN: Soft, distended. SKIN: Warm, dry BACK: Large (approximately 5cm x5cm deep wound noted at sacrum), deep. Stage IV: Full-thickness skin loss with extensive destruction and damage to the supporting structures, foul smelling with purulent discharge. NEURO: Alert but unable to provide health history. Aphasic PSYCH: Normal mood and affect. Course Vital Signs Vital signs: Vital Signs Temperature 97.3 F L 08/01/23 20:15 Pulse Rate 61 08/01/23 20:15 Respiratory Rate 20 08/01/23 20:15 Blood Pressure 111/73 08/01/23 20:15 Pulse Oximetry 97 08/01/23 20:15 Oxygen Delivery Room Air 08/01/23 20:15 Temperature 97.3 F L 08/01/23 20:15 Pulse Rate 72 08/01/23 22:45 Respiratory Rate 25 H 08/01/23 22:45 Blood Pressure 133/82 08/01/23 21:48 Pulse Oximetry 96 08/01/23 22:45 Oxygen Delivery Tita
[2023-08-01 21:24] LABS: Basophils Percent Auto 0.4 % (0.2-1.2); Eosinophils Absolute Auto 0.1 K/mm3 (0-0.3); Eosinophils Percent Auto 0.8 % (0-4.4); Hematocrit 37.3 % (42.0-52.0); Hemoglobin 10.7 g/dL (14.0-18.0); Immature Granulocyte Absolute 0.07 K/mm3 (0.00-0.031); Immature Granulocyte Percent A 0.7 % (0-0.5); Lymphocytes Absolute Auto 0.93 K/mm3 (0.9-3.2); Lymphocytes Percent Auto 8.8 % (18.3-44.2); Mean Corpuscular HGB Conc 28.7 g/dl (32-36); Mean Corpuscular Hemoglobin 24.3 pg (26-34); Mean Corpuscular Volume 84.8 fl (80-100); Monocytes Absolute Auto 1.1 K/mm3 (0.1-0.6); Monocytes Percent Auto 10.5 % (2.6-8.5); Neutrophils Absolute Auto 8.4 K/mm3 (1.3-6.7); Neutrophils Percent Auto 78.8 % (45.5-73.1); Platelet Count Result 365 k/mm3 (150-375); Red Cell Distribution Width 25.5 % (11.5-14.5); White Blood Count 10.6 K/mm3 (4.5-10.0)
[2023-08-01 21:32] LABS: Anisocytosis 1+ (NORMAL); Hypochromasia 1+ (NORMAL); Ovalocytes 1+ (NORMAL); Platelet Estimate Adequate (Adequate); Schistocytes None Seen (NORMAL)
[2023-08-01 21:34] LABS: Alanine Aminotransferase 19 U/L (6-50); Albumin Level 2.7 g/dL (3.5-5.1); Alkaline Phosphatase 69 U/L (38-126); Anion Gap 7 mmol/L (8-16); Aspartate Amino Transferase 29 U/L (17-59); Bilirubin,Total 0.6 mg/dL (0.2-1.3); Blood Urea Nitrogen 14 mg/dL (9-20); Calcium 8.1 mg/dL (8.4-10.2); Carbon Dioxide 26 mmol/L (22-30); Chloride 99 mmol/L (98-107); Estimated CRCL calculation 90 ml/min; Estimated Glomerular Filt Rate > 60; Glucose 131 mg/dL (65-110); Potassium 4.5 mmol/L (3.4-5.0); Sodium 132 mmol/L (137-145)
--- NOTE | 2023-08-01 21:48 | PC.NURSE ---
pt arrived to facility with urinary catheter in place.
[2023-08-01] MEDS: metroNIDAZOLE 500 MG/ISO 100ML 500 MG/100 ML BAG 100 MG IVPB (22:52)
[2023-08-01] MEDS: SODIUM CHLORIDE 0.9% IV 1,000 ML 999 ML IV CONT (22:52)
[2023-08-01 23:39] LABS: Lactic Acid Reflex 1.6 mmol/L (0.7-2.0)
--- NOTE | 2023-08-01 23:40 | PM.IMHP ---
H&P: HPI History of Present Illness Date/Time: 08/01/23 23:40 Chief Complaint: Wound infection Narrative: Patient was transferred to the emergency department from [facility], where he has been since discharge from [facility] recently. He has history of sacral decubitus ulcer for which he has been getting treatment with topical antibiotics, there is a concern that this is worsening. Family looked at this wound and found that way and draining foul-smelling discharge and decided to transfer him to the ED. no history of fever, chills, or weakness. He was evaluated in the ER and found to have infected sacral decubitus bowel sounds sacral osteomyelitis, also found on CT scan to have colitis of the sigmoid colon. [place] [address] with high CRP of 4.5. He has received vancomycin cefepime and Flagyl. I was consulted to admit this patient for further evaluation. At bedside patient denies any symptoms Review of Systems Review of Systems: All systems reviewed & are unremarkable except as noted in HPI and below PMFSH Past Medical History Medical History (Updated 08/02/23 @ 00:01 by Theresa Samuels MD) Acute CHF (congestive heart failure) Acute CVA (cerebrovascular accident) Anemia Atrial fibrillation Cataracts, bilateral Colon cancer Hyperlipidemia Hypertension Neuropathy Spinal stenosis Surgical History Surgical History History of hip replacement, total 4 times History of removal of pigmented skin lesion Family History Family History Sibling Heart failure Social History Social History Social History: The patient has two adopted children and is . He lives alone. Currently living at [facility]. 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 Code status full code Smoking status: Never smoker Alcohol intake: never Substance use: never Substance use type: does not use Do You Feel Safe in your Home?: Yes Lack of Transportation: No Lack of Food: Never True Current Housing: I Have Housing Concerned About Future Housing: No Difficulty Paying Gas/Electric Bills: No Difficulty Paying for Meds: No Currently Unemployed: No Education: Master's Degree or Higher Difficulty w/ Childcare or Family Care: No Spiritual care concerns: No Meds Home Medications and Allergies Home Medications Medication Instructions Recorded Confirmed Type diltiazem HCl 360 mg 360 mg PO DAILY 09/18/22 08/02/23 History capsule,extended release 24 hr (Cardizem CD) gabapentin 400 mg capsule 400 mg PO TID 09/18/22 08/02/23 History metoprolol succinate 25 mg 25 mg PO DAILY 09/18/22 08/02/23 History tablet,extended release 24 hr atorvastatin 40 mg tablet 40 mg PO HS #30 tabs 10/08/22 08/02/23 Rx dabigatran etexilate 150 mg 150 mg PO BID 06/28/23 08/02/23 History capsule (Pradaxa) famotidine 40 mg tablet 40 mg PO DAILY 06/28/23 08/02/23 History ondansetron 4 mg disintegrating 4 mg PO DAILY 06/28/23 08/02/23 History tablet albuterol sulfate 2.5 mg/3 mL 2.5 mg (3 mL) inhalation Q6HRT PRN 07/05/23 08/02/23 Rx (0.083 %) solution for nebulization Shortness Of Breath #30 mL ferrous sulfate 325 mg (65 mg 325 mg PO DAILY #30 tabs 07/05/23 08/02/23 Rx iron) tablet furosemide 40 mg tablet 40 mg PO DAILY #30 tabs 07/05/23 08/02/23 Rx pantoprazole 40 mg tablet,delayed 40 mg PO QAM #30 tabs 07/05/23 08/02/23 Rx release potassium chloride 20 mEq 20 meq PO DAILY #30 tabs 07/05/23 08/02/23 Rx tablet,extended release Allergies Allergy/AdvReac Type Severity Reaction Status Date / Time No Known Allergies Allergy Mild Verified 01/13/23 12:50 Vital Signs Vital Signs - 24 hr 08/01/23 20:15 08/01/23 21:48 08/01/23 22:27 Temperature 97.3 F L Pulse Rate 61 77 74 Respiratory Rate 20 22 H 21 H B
[2023-08-01 23:45] LABS: CRP 4.5 mg/dL (<1.0)
[2023-08-02] VITALS (10 sets, daily range): BP systolic 102–136; BP diastolic 54–79; PULSE 67–74; RESP 18–24; TEMP 36.2–36.6; O2SAT 95–99; BMI 43.0
[2023-08-02 00:17] LABS: Erythrocyte Sedimentation Rate 9 mm/hr (0-20)
--- NOTE | 2023-08-02 02:12 | ADMGEN ---
This patient, Rfuus Scanlon, was admitted to [facility] Surg Room 324-02. Patient/family oriented to hospital policies and general routines including ID bracelet, bed and alarms, visiting hours, pain management, procedures, bathroom and other care routines, personal items, smoking policy, room service/diet, and visiting hours. Information on how to activate the Rapid Response Team has been discussed. Patient/Family are encouraged to report perceived risks to care and to ask questions if they do not understand what they are told or what they should do.
[2023-08-02] MEDS: LACTATED RINGERS 1,000 ML 125 ML IV CONT (04:14)
[2023-08-02] MEDS: VANCOMYCIN 1,250 MG/NS 250 ML 1,250 MG/250 ML BAG 166.67 MG IVPB ×2 (04:15→06:06)
[2023-08-02 06:35] LABS: Basophils Absolute Auto 0.1 K/mm3 (0.0-0.1); Basophils Percent Auto 0.4 % (0.2-1.2); Eosinophils Absolute Auto 0.2 K/mm3 (0-0.3); Eosinophils Percent Auto 1.3 % (0-4.4); Hematocrit 35.2 % (42.0-52.0); Hemoglobin 10.2 g/dL (14.0-18.0); Immature Granulocyte Absolute 0.07 K/mm3 (0.00-0.031); Immature Granulocyte Percent A 0.6 % (0-0.5); Lymphocytes Absolute Auto 0.87 K/mm3 (0.9-3.2); Lymphocytes Percent Auto 7.8 % (18.3-44.2); Mean Corpuscular Hemoglobin 24.5 pg (26-34); Mean Corpuscular Volume 84.4 fl (80-100); Mean Platelet Volume 10.4 fl (7.4-10.4); Monocytes Absolute Auto 1.2 K/mm3 (0.1-0.6); Monocytes Percent Auto 10.8 % (2.6-8.5); Neutrophils Absolute Auto 8.8 K/mm3 (1.3-6.7); Neutrophils Percent Auto 79.1 % (45.5-73.1); Platelet Count Result 311 k/mm3 (150-375); Red Blood Count 4.17 M/mm3 (4.6-6.20); Red Cell Distribution Width 25.7 % (11.5-14.5); White Blood Count 11.1 K/mm3 (4.5-10.0)
[2023-08-02 07:50] LABS: Anisocytosis 1+ (NORMAL); Hypochromasia 2+ (NORMAL); Platelet Estimate Adequate (Adequate); Schistocytes None Seen (NORMAL)
[2023-08-02 08:15] LABS: Anion Gap 2 mmol/L (8-16); Blood Urea Nitrogen 13 mg/dL (9-20); Carbon Dioxide 28 mmol/L (22-30); Chloride 101 mmol/L (98-107); Estimated CRCL calculation 90 ml/min; Estimated Glomerular Filt Rate > 60; Glucose 100 mg/dL (65-110); Potassium 4.4 mmol/L (3.4-5.0); Sodium 131 mmol/L (137-145)
[2023-08-02] MEDS: metroNIDAZOLE 500 MG/ISO 100ML 500 MG/100 ML BAG 100 MG IVPB ×2 (08:25→15:12)
[2023-08-02] MEDS: FAMOTIDINE 20 MG TABLET 40 MG PO (09:59)
[2023-08-02] MEDS: METOPROLOL SUCCINATE EXT REL 25 MG TABCR PO (09:59)
[2023-08-02] MEDS: FUROSEMIDE 40 MG TABLET PO (09:59)
[2023-08-02] MEDS: POTASSIUM CHLORIDE 20 MEQ ER TABLET PO (09:59)
[2023-08-02] MEDS: dilTIAZem HCL CD 180 MG CAP.24HR 360 MG PO (09:59)
[2023-08-02] MEDS: GABAPENTIN 400 MG CAPSULE PO ×3 (10:00→17:10)
[2023-08-02] MEDS: FERROUS SULFATE 325 MG TABLET DR BY MOUTH (10:00)
[2023-08-02] MEDS: CEFEPIME 2 GM/NS 50 ML 2 GM/50 ML BAG IVPB ×2 (10:00→16:22)
--- NOTE | 2023-08-02 11:23 | P.CDI_ITS ---
CDI Query Clarification Request BMI 43.0 Nutritional Diagnostic Statement Moderate protein calorie malnutrition related to reduced appetite and intake with increased nutrient needs for wound healing as evidenced by significant weight loss of -10% x 1 month, poor po intake for greater than 1 week, noted stage III coccyx. Please refer to the comprehensive nutrition assessment for further information. Please clarify severity of protein calorie malnutrition if known: * Mild * Moderate * Severe * Other/Unspecified
--- NOTE | 2023-08-02 13:16 | PM.IMPN ---
Progress Note: A&P Assessment and Plan (1) Osteomyelitis of sacrum: Code(s): M46.28 - Osteomyelitis of vertebra, sacral and sacrococcygeal region Status: Acute (2) Stage 4 skin ulcer of sacral region: Code(s): L98.429 - Non-pressure chronic ulcer of back with unspecified severity Status: Acute (3) Colitis: Code(s): K52.9 - Noninfective gastroenteritis and colitis, unspecified Status: Acute Plan Osteomyelitis sacral -Blood cultures pending -Wound culture pending -CT showing sacral decubitus with sacral osteo. -Antibiotic regimen targeting patient's risk factors, adjust based on culture and sensitivity/Van/zosyn/flaygl currently -Monitor for sepsis no current evidence -Monitor IV hydration. -Surgery consulted possible surgical debridement/wound vac?? -consult I&D if needed based off cultures Colitis -Zosyn, Flaygl IV -PPI -diet as tolerated Chronic anemia -Resumed ferrous sulfate -Trend H&H -Transfuse hgb <7.0 COPD -Stable -Inhaler PRN Diastolic heart failure -does not appear in exacerbation -continue home BB, Lasix Code status: Full code per patient DVT prophylaxis: Pradaxa/scd's Stress ulcer prophylaxis: Protonix 40 daily PT/OT notes: Bedbound Q2hr will have PT/OT evaluation Disposition: Patient continues admission for sacral decub with osteomyelitis, surgery consulted and IV aBX pending cultures. Patient will return to SNF at discharge when medically stable. -Patient's previous records reviewed on admission -ER notes reviewed in detail on admission -discussed all findings and current treatment plan with patient/Family/POA -Consultations reviewed for recommendations -Patient's disposition for safe discharge discussed with rn case manager Dictation performed by [employer] direct speech recognition software, therefore cook ice cream variants and typographical errors may occur. Time Spent With Patient Time with patient: 15 - 25 minutes Subjective Date/time seen: 08/02/23 13:16 Interval history: Chief Complaint: Wound infection Narrative: Patient was transferred to the emergency department from [facility], where he has been since discharge from [facility] recently.? He has history of sacral decubitus ulcer for which he has been getting treatment with topical antibiotics, there is a concern that this is worsening.? Family looked at this wound and found that way and draining foul-smelling discharge and decided to transfer him to the ED. no history of fever, chills, or weakness.? He was evaluated in the ER and found to have infected sacral decubitus bowel sounds sacral osteomyelitis, also found on CT scan to have colitis of the sigmoid colon.? [place] [address] with high CRP of 4.5.? He has received vancomycin cefepime and Flagyl.? I was consulted to admit this patient for further evaluation.? At bedside patient denies any symptoms 08/02: Patient reports mild to moderate pain to sacral area due stage 4 wound, per notes wound has worsened since patient went to SNF. Patient remained Afebrile overnight and WBC slightly elevated at 11.1 will trend. Continue with IV ABX therapy and de-escalate pending cultures. Surgery consulted for further recommendations may need further surgical debridement and possible wound vac. Patient reports bedbound since 09/2022 failure to thrive. Review of Systems Review of Systems: All systems reviewed & are unremarkable except as noted in HPI and below Exam Narrative: General: Alert and oriented x4, bedbound not in distress HEENT: Normocephalic atraumatic EOMI Respiratory: Clear to auscultation bilaterally Cardiovascular: Regular rate and rhythm normal no gallop, no edema Gastrointestinal: Obese, nontender nondistended, normal bowel sounds Musculoskeletal/back: Extremities are grossly normal, stage IV sacral decubitus ulcer measured about 5 x 5 cm with necrotic base, segundo
--- NOTE | 2023-08-02 13:59 | PM.CNGS ---
Assessment and Plan Assessment and plan (1) Stage 4 skin ulcer of sacral region: Code(s): L98.429 - Non-pressure chronic ulcer of back with unspecified severity Status: Acute Assessment and Plan: discussed with family at bedside that the patient would need debridement in the operating room, they are in agreement and plan on this early next week, local wound care with [facility] at this time, IV antibiotics History of Present Illness Consult details Consult date: 08/02/23 Reason for consult: wound care Requesting physician: Theresa Samuels MD Narrative: The patient is an 82-year-old male with multiple medical issues including 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 The patient was admitted in June and had a stage I sacral decubitus ulcer at that time. The patient has since been discharged to an extended care facility and now returns with worsening wound. Per the family, and is now larger and draining foul-smelling material. There has been no reports of fevers. Review of Systems Review of Systems: ROS unobtainable: Yes unobtainable due to medical condition and unobtainable due to mental status PMFSH Past Medical History Medical History Acute CHF (congestive heart failure) Acute CVA (cerebrovascular accident) Anemia Atrial fibrillation Cataracts, bilateral Colon cancer Hyperlipidemia Hypertension Neuropathy Spinal stenosis Surgical History Surgical History History of hip replacement, total 4 times History of removal of pigmented skin lesion Family History Family History Sibling Heart failure Social History Social History Social History: The patient has two adopted children and is . He lives alone. Currently living at [facility]. 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 Code status full code Smoking status: Never smoker Alcohol intake: never Substance use: never Substance use type: does not use Do You Feel Safe in your Home?: Yes Lack of Transportation: No Lack of Food: Never True Current Housing: I Have Housing Concerned About Future Housing: No Difficulty Paying Gas/Electric Bills: No Difficulty Paying for Meds: No Currently Unemployed: No Education: Master's Degree or Higher Difficulty w/ Childcare or Family Care: No Spiritual care concerns: No Meds Home Medications and Allergies Home Medications Medication Instructions Recorded Confirmed Type diltiazem HCl 360 mg 360 mg PO DAILY 09/18/22 08/02/23 History capsule,extended release 24 hr (Cardizem CD) gabapentin 400 mg capsule 400 mg PO TID 09/18/22 08/02/23 History metoprolol succinate 25 mg 25 mg PO DAILY 09/18/22 08/02/23 History tablet,extended release 24 hr atorvastatin 40 mg tablet 40 mg PO HS #30 tabs 10/08/22 08/02/23 Rx dabigatran etexilate 150 mg 150 mg PO BID 06/28/23 08/02/23 History capsule (Pradaxa) famotidine 40 mg tablet 40 mg PO DAILY 06/28/23 08/02/23 History ondansetron 4 mg disintegrating 4 mg PO DAILY 06/28/23 08/02/23 History tablet albuterol sulfate 2.5 mg/3 mL 2.5 mg (3 mL) inhalation Q6HRT PRN 07/05/23 08/02/23 Rx (0.083 %) solution for nebulization Shortness Of Breath #30 mL ferrous sulfate 325 mg (65 mg 325 mg PO DAILY #30 tabs 07/05/23 08/02/23 Rx iron) tablet furosemide 40 mg tablet 40 mg PO DAILY #30 tabs 07/05/23 08/02/23 Rx pantoprazole 40 mg tablet,delayed 40 mg PO QAM #30 tabs 07/05/23 08/02/23 Rx release potassium chloride 20 mEq 20 meq PO DAILY #30 tabs 07/05/23 08/02/23 Rx tablet,extended release Allergies Allergy/AdvReac Type Severity Reaction Status Date / Time No Known Allergies Allergy Mild Verified 01/13/23 12:50 Vital Signs Vital Signs - 24 hr 08/01/23 20:15
[2023-08-02] MEDS: VANCOMYCIN 1,500 MG/NS 500 ML 1,500 MG/500 ML BAG 250 MG IVPB (17:10)
[2023-08-02] MEDS: ATORVASTATIN 40 MG TABLET PO (20:26)
[2023-08-02] MEDS: SOD HYPOCHLORITE 1/4 STRENGTH 473 ML 1 APPLIC TOPICAL (21:31)
[2023-08-03] VITALS (8 sets, daily range): BP systolic 99–129; BP diastolic 65–68; PULSE 64–70; RESP 14–22; TEMP 36.1–36.9; O2SAT 96–100
[2023-08-03] MEDS: metroNIDAZOLE 500 MG/ISO 100ML 500 MG/100 ML BAG 100 MG IVPB ×3 (00:09→15:57)
[2023-08-03] MEDS: CEFEPIME 2 GM/NS 50 ML 2 GM/50 ML BAG IVPB ×3 (01:09→15:58)
[2023-08-03] MEDS: VANCOMYCIN 1,500 MG/NS 500 ML 1,500 MG/500 ML BAG 250 MG IVPB ×2 (03:01→17:31)
[2023-08-03 07:18] LABS: Basophils Percent Auto 0.4 % (0.2-1.2); Eosinophils Absolute Auto 0.3 K/mm3 (0-0.3); Hematocrit 34.6 % (42.0-52.0); Hemoglobin 9.9 g/dL (14.0-18.0); Immature Granulocyte Absolute 0.07 K/mm3 (0.00-0.031); Immature Granulocyte Percent A 0.7 % (0-0.5); Lymphocytes Absolute Auto 0.82 K/mm3 (0.9-3.2); Lymphocytes Percent Auto 8.5 % (18.3-44.2); Mean Corpuscular HGB Conc 28.6 g/dl (32-36); Mean Corpuscular Hemoglobin 24.1 pg (26-34); Mean Corpuscular Volume 84.2 fl (80-100); Mean Platelet Volume 9.4 fl (7.4-10.4); Monocytes Absolute Auto 0.8 K/mm3 (0.1-0.6); Neutrophils Absolute Auto 7.7 K/mm3 (1.3-6.7); Neutrophils Percent Auto 79.4 % (45.5-73.1); Platelet Count Result 337 k/mm3 (150-375); Red Blood Count 4.11 M/mm3 (4.6-6.20); Red Cell Distribution Width 25.2 % (11.5-14.5); White Blood Count 9.7 K/mm3 (4.5-10.0)
[2023-08-03 07:47] LABS: Anisocytosis 1+ (NORMAL); Hypochromasia 2+ (NORMAL); Ovalocytes 1+ (NORMAL); Platelet Estimate Adequate (Adequate); Schistocytes None Seen (NORMAL)
[2023-08-03 07:50] LABS: Alanine Aminotransferase 15 U/L (6-50); Albumin Level 2.3 g/dL (3.5-5.1); Alkaline Phosphatase 66 U/L (38-126); Anion Gap 0 mmol/L (8-16); Aspartate Amino Transferase 23 U/L (17-59); Bilirubin,Total 0.7 mg/dL (0.2-1.3); Blood Urea Nitrogen 15 mg/dL (9-20); Calcium 8.6 mg/dL (8.4-10.2); Carbon Dioxide 32 mmol/L (22-30); Chloride 101 mmol/L (98-107); Estimated CRCL calculation 90 ml/min; Estimated Glomerular Filt Rate > 60; Glucose 96 mg/dL (65-110); Potassium 4.4 mmol/L (3.4-5.0); Sodium 133 mmol/L (137-145)
--- NOTE | 2023-08-03 08:48 | PCPTNOTE ---
Contacted Carol Savage about patient getting debridement surgery later next week and also being bedbound since September 2022 and agreed to cancel therapy orders.
[2023-08-03] MEDS: FAMOTIDINE 20 MG TABLET 40 MG PO (09:45)
[2023-08-03] MEDS: METOPROLOL SUCCINATE EXT REL 25 MG TABCR PO (09:45)
[2023-08-03] MEDS: FUROSEMIDE 40 MG TABLET PO (09:45)
[2023-08-03] MEDS: ACETAMINOPHEN 325 MG TABLET 650 MG PO (09:45)
[2023-08-03] MEDS: POTASSIUM CHLORIDE 20 MEQ ER TABLET PO (09:46)
[2023-08-03] MEDS: GABAPENTIN 400 MG CAPSULE PO ×3 (09:46→16:00)
[2023-08-03] MEDS: FERROUS SULFATE 325 MG TABLET DR BY MOUTH (09:46)
[2023-08-03] MEDS: dilTIAZem HCL CD 180 MG CAP.24HR 360 MG PO (09:46)
[2023-08-03] MEDS: SOD HYPOCHLORITE 1/4 STRENGTH 473 ML 1 APPLIC TOPICAL ×2 (09:47→20:51)
--- NOTE | 2023-08-03 10:53 | PM.PNGS ---
Progress Note: A&P Assessment and Plan (1) Stage 4 skin ulcer of sacral region: Code(s): L98.429 - Non-pressure chronic ulcer of back with unspecified severity Status: Acute Assessment and Plan: plan for debridement in OR on Saturday and possible vac placement, cont local wound care and abx for now Subjective Subjective Date/Time Seen: 08/03/23 10:53 Interval history: no acute issues Review of Systems Review of Systems: ROS unobtainable: Yes unobtainable due to medical condition and unobtainable due to mental status Exam Const: General: ill appearing and patient obtunded Resp: Auscultation: diminished lung sounds Cardio: Rate: regular rate Rhythm: regular rhythm GI: Inspection: normal to inspection Back/Spine/Pelvis: Other: sacral ulcer - dressing C/D/I Objective Data Vital Signs Vital Signs: Vital Signs - 24 hr 08/02/23 14:00 08/02/23 20:00 08/02/23 21:34 Temperature 36.2 C L 36.6 C Pulse Rate 67 74 Respiratory Rate 18 18 Blood Pressure 113/65 102/54 L Pulse Oximetry 99 97 97 Oxygen Delivery Room Air Fraction of Inspired Oxygen 08/02/23 23:15 08/02/23 23:20 08/02/23 23:25 Temperature Pulse Rate 71 Respiratory Rate 24 H Blood Pressure Pulse Oximetry 95 97 97 Oxygen Delivery Room Air BiPAP Fraction of Inspired Oxygen 08/03/23 05:59 08/03/23 04:05 08/03/23 09:45 Temperature 36.1 C L Pulse Rate 64 70 65 Respiratory Rate 16 20 Blood Pressure 129/68 Pulse Oximetry 100 96 Oxygen Delivery BiPAP Fraction of Inspired Oxygen Intake/Output Intake/Output: Intake & Output 07/31/23 08/01/23 08/02/23 08/03/23 23:59 23:59 23:59 23:59 Intake Total 1100 390 Output Total 2475 500 Balance -1375 -110 Meds/Results Medications: Active Medications Generic Name Dose Route Start Last Admin Trade Name Freq PRN Reason Stop Dose Admin Acetaminophen 650 mg 08/01/23 22:41 08/03/23 09:45 Acetaminophen 325 Mg Tablet PO 650 mg Q4H PRN Administration Mild Pain (1-3) or Fever Albuterol 2.5 mg 08/02/23 06:18 Albuterol Sulfate Neb 2.5 Mg/3 Ml Inh INHALATION Q6HRT PRN Shortness Of Breath Atorvastatin Calcium 40 mg 08/02/23 21:00 08/02/23 20:26 Atorvastatin 40 Mg Tablet PO 40 mg HS GABRIELLE Administration Diltiazem HCl 360 mg 08/02/23 09:00 08/03/23 09:46 Diltiazem Hcl Cd 180 Mg Cap.24hr PO 360 mg QAM GABRIELLE Administration Famotidine 40 mg 08/02/23 09:00 08/03/23 09:45 Famotidine 20 Mg Tablet PO 40 mg DAILY GABRIELLE Administration Ferrous Sulfate 325 mg 08/02/23 09:00 08/03/23 09:46 Ferrous Sulfate [address] BY MOUTH 325 mg DAILY GABRIELLE Administration Furosemide 40 mg 08/02/23 09:00 08/03/23 09:45 Furosemide 40 Mg Tablet PO 40 mg DAILY GABRIELLE Administration Gabapentin 400 mg 08/02/23 09:00 08/03/23 09:46 Gabapentin 400 Mg Capsule PO 400 mg TID GABRIELLE Administration Vancomycin HCl 1,500 mg in 500 mls @ 250 mls/hr 08/02/23 16:00 08/03/23 03:01 Vancomycin 1,500 Mg/Ns 500 Ml IVPB 250 mls/hr Q12H GABRIELLE Administration Metronidazole 500 mg in 100 mls @ 100 mls/hr 08/02/23 08:00 08/03/23 09:46 Flagyl 500 Mg/Iso Soln 100 Ml IVPB 100 mls/hr Q8H GABRIELLE Administration Cefepime HCl 2 gm in 50 mls @ 100 mls/hr 08/02/23 09:00 08/03/23 09:46 Maxipime 2 Gm/Ns 50 Ml IVPB 100 mls/hr Q8H GABRIELLE Administration Metoprolol Succinate 25 mg 08/02/23 09:00 08/03/23 09:45 Metoprolol Succinate Ext Rel 25 Mg Tabcr PO 25 mg DAILY GABRIELLE Administration Ondansetron HCl 4 mg 08/01/23 22:41 Ondansetron Inj 4 Mg/2 Ml Vial IV PUSH Q4H PRN Nausea Potassium Chloride 20 meq 08/02/23 08:00 08/03/23 09:46 Potassium Chloride 20 Meq Er Tablet PO 20 meq DAILY@0800 GABRIELLE Administration Sodium Hypochlorite 1 applic 08/02/23 09:00 08/03/23 09:47 Sod Hypochlorite 1/4 Strength 473 Ml TOPICAL 1 applic Q12HR GABRIELLE Admin
--- NOTE | 2023-08-03 11:48 | PM.IMPN ---
Progress Note: A&P Assessment and Plan (1) Osteomyelitis of sacrum: Code(s): M46.28 - Osteomyelitis of vertebra, sacral and sacrococcygeal region Status: Acute (2) Stage 4 skin ulcer of sacral region: Code(s): L98.429 - Non-pressure chronic ulcer of back with unspecified severity Status: Acute (3) Colitis: Code(s): K52.9 - Noninfective gastroenteritis and colitis, unspecified Status: Acute Plan Osteomyelitis sacral -Blood cultures Gram + cocci x aerobic bottle -Wound culture pending -CT showing sacral decubitus with sacral osteo. -Antibiotic regimen targeting patient's risk factors, adjust based on culture and sensitivity/Vanc/Cefepime/flaygl currently -Monitor for sepsis no current evidence -Monitor IV hydration. -Surgery consulted -Surgery 08/05/2023 for debridement and wound vac -consult I&D if needed based off cultures Colitis -Zosyn, Flaygl IV -PPI -diet as tolerated Chronic anemia -Resumed ferrous sulfate -Trend H&H -Transfuse hgb <7.0 COPD -Stable -Resumed home NIV while asleep -Inhaler PRN Diastolic heart failure -does not appear in exacerbation -continue home BB, Lasix Code status: Full code per patient DVT prophylaxis: Pradaxa/scd's Stress ulcer prophylaxis: Protonix 40 daily PT/OT notes: Bedbound Q2hr will have PT/OT evaluation Disposition: Patient continues admission for sacral decub with osteomyelitis, surgery consulted debridement scheduled 08/05 will need PT/OT order following will return to SNF when medically stable. -Patient's previous records reviewed on admission -ER notes reviewed in detail on admission -discussed all findings and current treatment plan with patient/Family/POA -Consultations reviewed for recommendations -Patient's disposition for safe discharge discussed with rehabilitation caseworker Dictation performed by [employer] direct speech recognition software, therefore bow maker production variants and typographical errors may occur. Time Spent With Patient Time with patient: less than 15 minutes Subjective Date/time seen: 08/03/23 11:48 Interval history: Chief Complaint: Wound infection Narrative: Patient was transferred to the emergency department from [facility], where he has been since discharge from [facility] recently.? He has history of sacral decubitus ulcer for which he has been getting treatment with topical antibiotics, there is a concern that this is worsening.? Family looked at this wound and found that way and draining foul-smelling discharge and decided to transfer him to the ED. no history of fever, chills, or weakness.? He was evaluated in the ER and found to have infected sacral decubitus bowel sounds sacral osteomyelitis, also found on CT scan to have colitis of the sigmoid colon.? [place] [address] with high CRP of 4.5.? He has received vancomycin cefepime and Flagyl.? I was consulted to admit this patient for further evaluation.? At bedside patient denies any symptoms 08/02: Patient reports mild to moderate pain to sacral area due stage 4 wound, per notes wound has worsened since patient went to SNF. Patient remained Afebrile overnight and WBC slightly elevated at 11.1 will trend. Continue with IV ABX therapy and de-escalate pending cultures. Surgery consulted for further recommendations may need further surgical debridement and possible wound vac. Patient reports bedbound since 09/2022 failure to thrive. 08/03: Patient cheerful laying in bed denies any pain. Plan is for surgical debridement on Saturday and wound vac placement. Will order PT/OT post surgery continue with Q2hr turns. Review of Systems Review of Systems: All systems reviewed & are unremarkable except as noted in HPI and below Exam Narrative: General: Alert and oriented x4, bedbound not in distress HEENT: Normocephalic atraumatic EOMI Respiratory: Clear to auscultation bilaterally [facility]
[2023-08-03 15:57] LABS: Vancomycin Trough 16.4 ug/mL (10.0-20.0)
[2023-08-03] MEDS: ATORVASTATIN 40 MG TABLET PO (20:51)
[2023-08-04] MEDS: metroNIDAZOLE 500 MG/ISO 100ML 500 MG/100 ML BAG 100 MG IVPB ×3 (00:18→16:32)
[2023-08-04] MEDS: CEFEPIME 2 GM/NS 50 ML 2 GM/50 ML BAG IVPB ×3 (01:14→16:33)
[2023-08-04 03:40] VITALS: PULSE 61; RESP 22; O2SAT 99
[2023-08-04] MEDS: VANCOMYCIN 1,500 MG/NS 500 ML 1,500 MG/500 ML BAG 250 MG IVPB ×2 (04:12→16:32)
[2023-08-04 06:29] VITALS: BP 120/84; PULSE 76; RESP 20; TEMP 36.2; O2SAT 99
[2023-08-04 06:59] LABS: Basophils Percent Auto 0.2 % (0.2-1.2); Eosinophils Absolute Auto 0.3 K/mm3 (0-0.3); Eosinophils Percent Auto 3.3 % (0-4.4); Hematocrit 33.8 % (42.0-52.0); Hemoglobin 9.6 g/dL (14.0-18.0); Immature Granulocyte Absolute 0.06 K/mm3 (0.00-0.031); Immature Granulocyte Percent A 0.6 % (0-0.5); Lymphocytes Absolute Auto 0.84 K/mm3 (0.9-3.2); Mean Corpuscular HGB Conc 28.4 g/dl (32-36); Mean Corpuscular Hemoglobin 23.8 pg (26-34); Mean Corpuscular Volume 83.7 fl (80-100); Mean Platelet Volume 9.3 fl (7.4-10.4); Monocytes Absolute Auto 0.8 K/mm3 (0.1-0.6); Monocytes Percent Auto 8.9 % (2.6-8.5); Neutrophils Absolute Auto 7.3 K/mm3 (1.3-6.7); Platelet Count Result 352 k/mm3 (150-375); Red Blood Count 4.04 M/mm3 (4.6-6.20); Red Cell Distribution Width 24.8 % (11.5-14.5); White Blood Count 9.3 K/mm3 (4.5-10.0)
[2023-08-04 07:06] LABS: Alanine Aminotransferase 17 U/L (6-50); Albumin Level 2.4 g/dL (3.5-5.1); Alkaline Phosphatase 62 U/L (38-126); Anion Gap 2 mmol/L (8-16); Aspartate Amino Transferase 29 U/L (17-59); Bilirubin,Total 0.5 mg/dL (0.2-1.3); Blood Urea Nitrogen 13 mg/dL (9-20); Carbon Dioxide 31 mmol/L (22-30); Chloride 103 mmol/L (98-107); Estimated CRCL calculation 102 ml/min; Estimated Glomerular Filt Rate > 60; Glucose 97 mg/dL (65-110); Potassium 3.9 mmol/L (3.4-5.0); Sodium 136 mmol/L (137-145)
[2023-08-04 09:15] VITALS: O2SAT 100
[2023-08-04] MEDS: GABAPENTIN 400 MG CAPSULE PO ×3 (09:17→16:39)
[2023-08-04] MEDS: FAMOTIDINE 20 MG TABLET 40 MG PO (09:17)
[2023-08-04] MEDS: POTASSIUM CHLORIDE 20 MEQ ER TABLET PO (09:17)
[2023-08-04 09:18] VITALS: PULSE 74
[2023-08-04] MEDS: ACETAMINOPHEN 325 MG TABLET 650 MG PO (09:18)
[2023-08-04] MEDS: METOPROLOL SUCCINATE EXT REL 25 MG TABCR PO (09:18)
[2023-08-04] MEDS: dilTIAZem HCL CD 180 MG CAP.24HR 360 MG PO (09:18)
[2023-08-04] MEDS: FUROSEMIDE 40 MG TABLET PO (09:18)
[2023-08-04] MEDS: FERROUS SULFATE 325 MG TABLET DR BY MOUTH (09:18)
[2023-08-04] MEDS: SOD HYPOCHLORITE 1/4 STRENGTH 473 ML 1 APPLIC TOPICAL ×2 (09:21→21:08)
--- NOTE | 2023-08-04 11:08 | PM.PNGS ---
Progress Note: A&P Assessment and Plan (1) Stage 4 skin ulcer of sacral region: Code(s): L98.429 - Non-pressure chronic ulcer of back with unspecified severity Status: Acute Assessment and Plan: cont local wound care and abx, plan for debridement in OR tomorrow Subjective Subjective Date/Time Seen: 08/04/23 11:08 Interval history: more alert today, no acute issues Review of Systems Review of Systems: All systems reviewed & are unremarkable except as noted in HPI and below Exam Const: General: cooperative, comfortable and no acute distress Resp: Auscultation: diminished lung sounds Cardio: Rate: regular rate Rhythm: regular rhythm GI: Inspection: normal to inspection Back/Spine/Pelvis: Other: sacral dressing C/D/I Objective Data Vital Signs Vital Signs: Vital Signs - 24 hr 08/03/23 14:00 08/03/23 21:37 08/03/23 20:30 Temperature 36.5 C 36.9 C Pulse Rate 67 64 Respiratory Rate 14 16 Blood Pressure 99/65 L 126/65 Pulse Oximetry 98 99 99 Oxygen Delivery Nasal Cannula Oxygen Flow Rate 2 08/03/23 23:50 08/03/23 23:50 08/04/23 03:40 Temperature Pulse Rate 64 61 Respiratory Rate 22 H 22 H Blood Pressure Pulse Oximetry 99 98 99 Oxygen Delivery BiPAP Room Air BiPAP Oxygen Flow Rate 08/04/23 06:29 08/04/23 09:18 Temperature 36.2 C L Pulse Rate 76 74 Respiratory Rate 20 Blood Pressure 120/84 Pulse Oximetry 99 Oxygen Delivery Oxygen Flow Rate Intake/Output Intake/Output: Intake & Output 08/01/23 08/02/23 08/03/23 08/04/23 23:59 23:59 23:59 23:59 Intake Total 1100 2570 986 Output Total 2475 1850 1100 Balance -1375 720 -114 Meds/Results Medications: Active Medications Generic Name Dose Route Start Last Admin Trade Name Freq PRN Reason Stop Dose Admin Acetaminophen 650 mg 08/01/23 22:41 08/04/23 09:18 Acetaminophen 325 Mg Tablet PO 650 mg Q4H PRN Administration Mild Pain (1-3) or Fever Albuterol 2.5 mg 08/02/23 06:18 Albuterol Sulfate Neb 2.5 Mg/3 Ml Inh INHALATION Q6HRT PRN Shortness Of Breath Atorvastatin Calcium 40 mg 08/02/23 21:00 08/03/23 20:51 Atorvastatin 40 Mg Tablet PO 40 mg HS GABRIELLE Administration Diltiazem HCl 360 mg 08/02/23 09:00 08/04/23 09:18 Diltiazem Hcl Cd 180 Mg Cap.24hr PO 360 mg QAM GABRIELLE Administration Famotidine 40 mg 08/02/23 09:00 08/04/23 09:17 Famotidine 20 Mg Tablet PO 40 mg DAILY GABRIELLE Administration Ferrous Sulfate 325 mg 08/02/23 09:00 08/04/23 09:18 Ferrous Sulfate [address] BY MOUTH 325 mg DAILY GABRIELLE Administration Furosemide 40 mg 08/02/23 09:00 08/04/23 09:18 Furosemide 40 Mg Tablet PO 40 mg DAILY GABRIELLE Administration Gabapentin 400 mg 08/02/23 09:00 08/04/23 09:17 Gabapentin 400 Mg Capsule PO 400 mg TID GABRIELLE Administration Vancomycin HCl 1,500 mg in 500 mls @ 250 mls/hr 08/02/23 16:00 08/04/23 06:12 Vancomycin 1,500 Mg/Ns 500 Ml IVPB Infused Q12H GABRIELLE Infusion Metronidazole 500 mg in 100 mls @ 100 mls/hr 08/02/23 08:00 08/04/23 09:18 Flagyl 500 Mg/Iso Soln 100 Ml IVPB 100 mls/hr Q8H GABRIELLE Administration Cefepime HCl 2 gm in 50 mls @ 100 mls/hr 08/02/23 09:00 08/04/23 09:19 Maxipime 2 Gm/Ns 50 Ml IVPB 100 mls/hr Q8H GABRIELLE Administration Metoprolol Succinate 25 mg 08/02/23 09:00 08/04/23 09:18 Metoprolol Succinate Ext Rel 25 Mg Tabcr PO 25 mg DAILY [facility] Administration Ondansetron HCl 4 mg 08/01/23 22:41 Ondansetron Inj 4 Mg/2 Ml Vial IV PUSH Q4H PRN Nausea Potassium Chloride 20 meq 08/02/23 08:00 08/04/23 09:17 Potassium Chloride 20 Meq Er Tablet PO 20 meq DAILY@0800 [facility] Administration Sodium Hypochlorite 1 applic 08/02/23 09:00 08/04/23 09:21 Sod Hypochlorite 1/4 Strength 473 Ml TOPICAL 1 applic Q12HR GABRIELLE Administration Radiology Results: ITS Impressions Abdomen/Pelvis CT 08/01/23 22:16 IM
--- NOTE | 2023-08-04 11:51 | PM.IMPN ---
Progress Note: A&P Assessment and Plan (1) Osteomyelitis of sacrum: Code(s): M46.28 - Osteomyelitis of vertebra, sacral and sacrococcygeal region Status: Acute (2) Stage 4 skin ulcer of sacral region: Code(s): L98.429 - Non-pressure chronic ulcer of back with unspecified severity Status: Acute (3) Colitis: Code(s): K52.9 - Noninfective gastroenteritis and colitis, unspecified Status: Acute Plan Osteomyelitis sacral -Blood cultures Gram + cocci x aerobic bottle -Wound culture Staph aureus -CT showing sacral decubitus with sacral osteo. -Antibiotic regimen targeting patient's risk factors, adjust based on culture and sensitivity/Vanc/Cefepime/flaygl currently -Monitor for sepsis no current evidence -Monitor IV hydration. -Surgery consulted -Surgery 08/05/2023 for debridement and wound vac -consult I&D if needed based off cultures Colitis -Zosyn, Flaygl IV -PPI -diet as tolerated Chronic anemia -Resumed ferrous sulfate -Trend H&H -Transfuse hgb <7.0 COPD -Stable -Resumed home NIV while asleep -Inhaler PRN Diastolic heart failure -does not appear in exacerbation -continue home BB, Lasix Code status: Full code per patient DVT prophylaxis: Pradaxa/scd's Stress ulcer prophylaxis: Protonix 40 daily PT/OT notes: Bedbound Q2hr will have PT/OT evaluation Disposition: Patient continues admission for sacral decub with osteomyelitis, surgery consulted debridement scheduled 08/05 will need PT/OT order following will return to SNF when medically stable may also require switch foreman IV ABX will determine following cultures and surgery. -Patient's previous records reviewed on admission -ER notes reviewed in detail on admission -discussed all findings and current treatment plan with patient/Family/POA -Consultations reviewed for recommendations -Patient's disposition for safe discharge discussed with welfare case worker Dictation performed by [employer] direct speech recognition software, therefore solderer assembly repair variants and typographical errors may occur. Time Spent With Patient Time with patient: less than 15 minutes Subjective Date/time seen: 08/04/23 11:51 Interval history: Chief Complaint: Wound infection Narrative: Patient was transferred to the emergency department from [facility], where he has been since discharge from [facility] recently.? He has history of sacral decubitus ulcer for which he has been getting treatment with topical antibiotics, there is a concern that this is worsening.? Family looked at this wound and found that way and draining foul-smelling discharge and decided to transfer him to the ED. no history of fever, chills, or weakness.? He was evaluated in the ER and found to have infected sacral decubitus bowel sounds sacral osteomyelitis, also found on CT scan to have colitis of the sigmoid colon.? [place] [address] with high CRP of 4.5.? He has received vancomycin cefepime and Flagyl.? I was consulted to admit this patient for further evaluation.? At bedside patient denies any symptoms 08/02: Patient reports mild to moderate pain to sacral area due stage 4 wound, per notes wound has worsened since patient went to SNF. Patient remained Afebrile overnight and WBC slightly elevated at 11.1 will trend. Continue with IV ABX therapy and de-escalate pending cultures. Surgery consulted for further recommendations may need further surgical debridement and possible wound vac. Patient reports bedbound since 09/2022 failure to thrive. 08/03: Patient cheerful laying in bed denies any pain. Plan is for surgical debridement on Saturday and wound vac placement. Will order PT/OT post surgery continue with Q2hr turns. 08/04: Patient comfortable with no complaints scheduled for surgery 08/05 with possible wound vac. Anemia Hgb stable continue to trend. Review of Systems Review of Systems: All systems reviewed & a
[2023-08-04 14:00] VITALS: BP 108/67; PULSE 65; RESP 20; TEMP 36.6; O2SAT 100
[2023-08-04 20:25] VITALS: BP 100/62; PULSE 100; RESP 18; TEMP 36.4; O2SAT 98
[2023-08-04] MEDS: ATORVASTATIN 40 MG TABLET PO (21:08)
[2023-08-05] VITALS (17 sets, daily range): BP systolic 92–121; BP diastolic 54–76; PULSE 61–100; RESP 14–23; TEMP 35.4–36.8; O2SAT 95–100
[2023-08-05] MEDS: metroNIDAZOLE 500 MG/ISO 100ML 500 MG/100 ML BAG 100 MG IVPB (00:44)
[2023-08-05] MEDS: CEFEPIME 2 GM/NS 50 ML 2 GM/50 ML BAG IVPB (01:51)
[2023-08-05 03:18] LABS: Basophils Percent Auto 0.4 % (0.2-1.2); Eosinophils Absolute Auto 0.3 K/mm3 (0-0.3); Eosinophils Percent Auto 4.4 % (0-4.4); Hematocrit 32.8 % (42.0-52.0); Hemoglobin 9.3 g/dL (14.0-18.0); Immature Granulocyte Absolute 0.04 K/mm3 (0.00-0.031); Immature Granulocyte Percent A 0.6 % (0-0.5); Lymphocytes Absolute Auto 0.95 K/mm3 (0.9-3.2); Lymphocytes Percent Auto 13.6 % (18.3-44.2); Mean Corpuscular HGB Conc 28.4 g/dl (32-36); Mean Corpuscular Hemoglobin 24.3 pg (26-34); Mean Corpuscular Volume 85.9 fl (80-100); Mean Platelet Volume 9.9 fl (7.4-10.4); Monocytes Absolute Auto 0.8 K/mm3 (0.1-0.6); Monocytes Percent Auto 11.4 % (2.6-8.5); Neutrophils Absolute Auto 4.9 K/mm3 (1.3-6.7); Neutrophils Percent Auto 69.6 % (45.5-73.1); Platelet Count Result 321 k/mm3 (150-375); Red Blood Count 3.82 M/mm3 (4.6-6.20); Red Cell Distribution Width 24.7 % (11.5-14.5)
[2023-08-05 03:34] LABS: Alanine Aminotransferase 17 U/L (6-50); Albumin Level 2.5 g/dL (3.5-5.1); Alkaline Phosphatase 67 U/L (38-126); Anion Gap 2 mmol/L (8-16); Aspartate Amino Transferase 25 U/L (17-59); Bilirubin,Total 0.5 mg/dL (0.2-1.3); Blood Urea Nitrogen 15 mg/dL (9-20); Calcium 8.3 mg/dL (8.4-10.2); Carbon Dioxide 29 mmol/L (22-30); Chloride 103 mmol/L (98-107); Estimated CRCL calculation 90 ml/min; Estimated Glomerular Filt Rate > 60; Glucose 100 mg/dL (65-110); Potassium 4.1 mmol/L (3.4-5.0); Sodium 134 mmol/L (137-145)
[2023-08-05 03:36] LABS: Vancomycin Trough 22.8 ug/mL (10.0-20.0)
[2023-08-05 03:43] LABS: Platelet Estimate Adequate (Adequate)
[2023-08-05 03:46] LABS: Anisocytosis 1+ (NORMAL); Burr Cells 1+ (NORMAL); Hypochromasia 1+ (NORMAL); Platelet Clumps Present; Schistocytes None Seen (NORMAL)
[2023-08-05] MEDS: dilTIAZem HCL CD 180 MG CAP.24HR 360 MG PO (08:41)
[2023-08-05] MEDS: AMOXICILLIN/CLAVULANATE K 875-125 MG TAB 1 TABLET PO ×2 (08:41→21:00)
[2023-08-05] MEDS: GABAPENTIN 400 MG CAPSULE PO ×2 (08:41→17:06)
[2023-08-05] MEDS: SOD HYPOCHLORITE 1/4 STRENGTH 473 ML 1 APPLIC TOPICAL (08:42)
[2023-08-05] MEDS: METOPROLOL SUCCINATE EXT REL 25 MG TABCR PO (08:42)
[2023-08-05] MEDS: VANCOMYCIN 1,500 MG/NS 500 ML 1,500 MG/500 ML BAG 250 MG IVPB (09:42)
--- NOTE | 2023-08-05 10:37 | WPDHPUPDATE1 ---
History and Physical Update Update Date/Time: 08/05/23 10:37 History and Physical has been reviewed, including an updated exam of the patient. There are NO changes in the patient's condition. Risks, benefits, and alternatives have been discussed and questions answered. Patient agrees to proceed with procedure.
--- NOTE | 2023-08-05 12:15 | PM.IMPN ---
Progress Note: A&P Assessment and Plan (1) Osteomyelitis of sacrum: Code(s): M46.28 - Osteomyelitis of vertebra, sacral and sacrococcygeal region Status: Acute (2) Stage 4 skin ulcer of sacral region: Code(s): L98.429 - Non-pressure chronic ulcer of back with unspecified severity Status: Acute (3) Colitis: Code(s): K52.9 - Noninfective gastroenteritis and colitis, unspecified Status: Acute Plan Osteomyelitis sacral -Blood cultures Staph epidermidis -Wound culture MRSA -CT showing sacral decubitus with sacral osteo. -IV vancomycin length of therapy will be determined post surgery and amount of osteo -Monitor for sepsis no current evidence -Monitor IV hydration. -Surgery consulted -Surgery 08/05/2023 for debridement and wound vac -consult I&D Colitis -PPI -diet as tolerated Chronic anemia -Resumed ferrous sulfate -Trend H&H -Transfuse hgb <7.0 COPD -Stable -Resumed home NIV while asleep -Inhaler PRN Diastolic heart failure -does not appear in exacerbation -continue home BB, Lasix Code status: Full code per patient DVT prophylaxis: Pradaxa/scd's Stress ulcer prophylaxis: Protonix 40 daily PT/OT notes: Bedbound Q2hr will have PT/OT evaluation Disposition: Patient continues admission for sacral decub with osteomyelitis, surgery consulted debridement scheduled 08/05 will need PT/OT order following will return to SNF when medically stable will require long term acute care registered nurse IV ABX will determine length following Surgery -Patient's previous records reviewed on admission -ER notes reviewed in detail on admission -discussed all findings and current treatment plan with patient/Family/POA -Consultations reviewed for recommendations -Patient's disposition for safe discharge discussed with correctional counselor/case manager Dictation performed by [employer] direct speech recognition software, therefore big data engineer variants and typographical errors may occur. Time Spent With Patient Time with patient: 15 - 25 minutes Subjective Date/time seen: 08/05/23 12:15 Interval history: Chief Complaint: Wound infection Narrative: Patient was transferred to the emergency department from [facility], where he has been since discharge from [facility] recently.? He has history of sacral decubitus ulcer for which he has been getting treatment with topical antibiotics, there is a concern that this is worsening.? Family looked at this wound and found that way and draining foul-smelling discharge and decided to transfer him to the ED. no history of fever, chills, or weakness.? He was evaluated in the ER and found to have infected sacral decubitus bowel sounds sacral osteomyelitis, also found on CT scan to have colitis of the sigmoid colon.? [place] [address] with high CRP of 4.5.? He has received vancomycin cefepime and Flagyl.? I was consulted to admit this patient for further evaluation.? At bedside patient denies any symptoms 08/02: Patient reports mild to moderate pain to sacral area due stage 4 wound, per notes wound has worsened since patient went to SNF. Patient remained Afebrile overnight and WBC slightly elevated at 11.1 will trend. Continue with IV ABX therapy and de-escalate pending cultures. Surgery consulted for further recommendations may need further surgical debridement and possible wound vac. Patient reports bedbound since 09/2022 failure to thrive. 08/03: Patient cheerful laying in bed denies any pain. Plan is for surgical debridement on Saturday and wound vac placement. Will order PT/OT post surgery continue with Q2hr turns. 08/04: Patient comfortable with no complaints scheduled for surgery 08/05 with possible wound vac. Anemia Hgb stable continue to trend. 08/05: Patient comfortable no complaints going to OR today for debridement MRSA in wound will need IV ABX vancomycin length of therapy to be determined post surgery. Review of S
--- NOTE | 2023-08-05 13:29 | PC.NURSE ---
Verbal report given to Henry QUIÑONEZ Preop. To Surgery via bed.
--- NOTE | 2023-08-05 14:40 | WPDANESEPPF ---
Anes - Initial Pre Proc Eval Procedure: Operation Date: 08/05/23 15:00 Proposed Procedures p Debridement Stage Four Sacral Decubitus Ulcer, Possible Wound Vac Placement - Ceci Mckenzie MD Date/Time: 08/05/23 14:40 Surgeon: Theresa Samuels MD Pre Op Diagnosis: Osteomyelitis,Sigmoid Colitis Patient Data Age: 82 Gender: M Height: 1.8 m Weight: 140 kg Last Vital Signs Temp 36.8 C 08/05/23 14:05 Pulse 63 08/05/23 14:05 Resp 14 08/05/23 14:05 BP 102/76 08/05/23 14:05 Pulse Ox 96 08/05/23 14:05 O2 Del Method Room Air 08/05/23 14:05 O2 Flow Rate 2 08/04/23 09:15 FiO2 28 08/02/23 23:25 Allergies Allergy/AdvReac Type Severity Reaction Status Date / Time No Known Allergies Allergy Mild Verified 08/05/23 14:12 Home Medications Medication Instructions Recorded Confirmed Type diltiazem HCl 360 mg 360 mg PO DAILY 09/18/22 08/02/23 History capsule,extended release 24 hr (Cardizem CD) gabapentin 400 mg capsule 400 mg PO TID 09/18/22 08/02/23 History metoprolol succinate 25 mg 25 mg PO DAILY 09/18/22 08/02/23 History tablet,extended release 24 hr atorvastatin 40 mg tablet 40 mg PO HS #30 tabs 10/08/22 08/02/23 Rx dabigatran etexilate 150 mg 150 mg PO BID 06/28/23 08/02/23 History capsule (Pradaxa) famotidine 40 mg tablet 40 mg PO DAILY 06/28/23 08/02/23 History ondansetron 4 mg disintegrating 4 mg PO DAILY 06/28/23 08/02/23 History tablet albuterol sulfate 2.5 mg/3 mL 2.5 mg (3 mL) inhalation Q6HRT PRN 07/05/23 08/02/23 Rx (0.083 %) solution for nebulization Shortness Of Breath #30 mL ferrous sulfate 325 mg (65 mg 325 mg PO DAILY #30 tabs 07/05/23 08/02/23 Rx iron) tablet furosemide 40 mg tablet 40 mg PO DAILY #30 tabs 07/05/23 08/02/23 Rx pantoprazole 40 mg tablet,delayed 40 mg PO QAM #30 tabs 07/05/23 08/02/23 Rx release potassium chloride 20 mEq 20 meq PO DAILY #30 tabs 07/05/23 08/02/23 Rx tablet,extended release Laboratory Tests 08/05/23 03:11 WBC 7.0 K/mm3 (4.5-10.0) RBC 3.82 L M/mm3 (4.6-6.20) Hgb 9.3 L g/dL (14.0-18.0) Hct 32.8 L % (42.0-52.0) MCV 85.9 fl (80-100) MCH 24.3 L pg (26-34) MCHC 28.4 L g/dl (32-36) RDW 24.7 H % (11.5-14.5) Plt Count 321 k/mm3 (150-375) MPV 9.9 fl (7.4-10.4) Immature Gran % (Auto) 0.6 H % (0-0.5) Neut % (Auto) 69.6 % (45.5-73.1) Lymph % (Auto) 13.6 L % (18.3-44.2) [place] % (Auto) 11.4 H % (2.6-8.5) Eos % (Auto) 4.4 % (0-4.4) Baso % (Auto) 0.4 % (0.2-1.2) Lymph # (Auto) 0.95 K/mm3 (0.9-3.2) [place] # (Auto) 0.8 H K/mm3 (0.1-0.6) Eos # (Auto) 0.3 K/mm3 (0-0.3) Baso # (Auto) 0.0 K/mm3 (0.0-0.1) Abs Immat Gran (auto) 0.04 H K/mm3 (0.00-0.031) Absolute Neuts (auto) 4.9 K/mm3 (1.3-6.7) Absolute Nucleated RBC 0.0 K/mm3 (0.0-0.012) Nucleated RBC % 0.0 % (0.0-0.2) Platelet Estimate Adequate (Adequate) Clumped Platelets Present Hypochromasia 1+ (NORMAL) Anisocytosis 1+ (NORMAL) Isaac Cells 1+ (NORMAL) Schistocytes None seen (NORMAL) Sodium 134 L mmol/L (137-145) Potassium 4.1 mmol/L (3.4-5.0) Chloride 103 mmol/L (98-107) Carbon Dioxide 29 mmol/L (22-30) Anion Gap 2 L mmol/L (8-16) BUN 15 mg/dL (9-20) Creatinine 0.80 mg/dL (0.7-1.3) Estim Creat Clear Calc 90 ml/min Estimated GFR > 60 (59 - ) Glucose 100 mg/dL (65-110) Calcium 8.3 L mg/dL (8.4-10.2) Total Bilirubin 0.5 mg/dL (0.2-1.3) AST 25 U/L (17-59) ALT 17 U/L (6-50) Alkaline Phosphatase 67 U/L (38-126) Total Protein 5.0 L g/dL (6.3-8.2) Albumin 2.5 L g/dL (3.5-5.1) Vancomycin Trough 22.8 H ug/mL (10.0-20.0) Patient hx anesthesia problems: none Family hx anesthesia problems: none Results Review: All pre-operative results and documents have been reviewed as part of th
[2023-08-05] MEDS: LACTATED RINGERS 1,000 ML 30 ML IV CONT (15:35)
--- NOTE | 2023-08-05 15:44 | W.PM.PROC2 ---
Procedure Note - Detailed Date of Procedure 08/05/23 Pre-op Diagnosis stage IV sacral decubitus ulcer Post-op Diagnosis Same Procedure Performed extensive debridement stage IV sacral decubitus ulcer measuring 10 x 6 x 4 cm with tunneling superiorly measuring 3 x 6 cm, base with noted bone, washout, placement of greater than 50 sq cm vac dressing Surgeon Ceci Mckenzie MD Anesthesia General Indications 82-year-old male status post CVA with a worsening sacral decubitus ulcer. Imaging significant for osteomyelitis in the sacrum. Findings Stage IV sacral decubitus ulcer measuring 10 x 6 x 4 cm with tunneling superiorly measuring 3 x 6 cm, base with noted exposed bone Description of Procedure The patient was taken the operating room and placed in the lateral position. After adequate induction of general anesthesia, patient was prepped and draped in the normal sterile fashion. A time-out was then done to verify the patient's identity, as well as the procedure being performed. The previous dressing was then removed. There was noted to be necrotic dermis and subcutaneous tissue. I used a 15 blade scalpel to debride this tissue back to healthy bleeding tissue. At the base of the wound, there was noted to be exposed sacrum. Of note, there was no signs or symptoms of active infection in the wound. After debriding this tissue, measurements of the wound were noted to be 10 x 6 x 4 cm. There was an area under the dermis of superior tunneling measuring 3 x 6 cm. The debrided tissue was noted to include dermis subcutaneous tissue and some underlying muscle. Once completely, I copiously washed out the cavity. Hemostasis was then gained with the Bovie cautery. I then proceeded to place a VAC dressing onto the wound. Patient tolerated the procedure well and was extubated postoperatively. He will be transferred to the recovery room in stable condition. Estimated Blood Loss 20 Drains No Packing No Pathology None sent Complications No immediate complications Condition Stable Disposition PACU [facility] Billing Surgery - Charge Forward: Surgery Billing
--- NOTE | 2023-08-05 16:55 | PC.NURSE ---
Returned from oR via bed. Family at bedside.
[2023-08-05] MEDS: ATORVASTATIN 40 MG TABLET PO (21:00)
[2023-08-06] VITALS (7 sets, daily range): BP systolic 97–112; BP diastolic 46–72; PULSE 60–84; RESP 18–22; TEMP 36.1–37.1; O2SAT 95–97
[2023-08-06] MEDS: VANCOMYCIN 1,500 MG/NS 500 ML 1,500 MG/500 ML BAG 250 MG IVPB ×2 (03:32→23:27)
[2023-08-06 06:42] LABS: Basophils Percent Auto 0.2 % (0.2-1.2); Hemoglobin 9.4 g/dL (14.0-18.0); Immature Granulocyte Absolute 0.07 K/mm3 (0.00-0.031); Immature Granulocyte Percent A 0.9 % (0-0.5); Lymphocytes Absolute Auto 0.55 K/mm3 (0.9-3.2); Lymphocytes Percent Auto 6.8 % (18.3-44.2); Mean Corpuscular HGB Conc 29.4 g/dl (32-36); Mean Corpuscular Hemoglobin 24.6 pg (26-34); Mean Corpuscular Volume 83.8 fl (80-100); Mean Platelet Volume 9.8 fl (7.4-10.4); Monocytes Absolute Auto 0.3 K/mm3 (0.1-0.6); Monocytes Percent Auto 3.2 % (2.6-8.5); Neutrophils Absolute Auto 7.2 K/mm3 (1.3-6.7); Neutrophils Percent Auto 88.9 % (45.5-73.1); Platelet Count Result 328 k/mm3 (150-375); Red Blood Count 3.82 M/mm3 (4.6-6.20); Red Cell Distribution Width 24.8 % (11.5-14.5); White Blood Count 8.1 K/mm3 (4.5-10.0)
[2023-08-06 06:57] LABS: Alanine Aminotransferase 15 U/L (6-50); Albumin Level 2.4 g/dL (3.5-5.1); Alkaline Phosphatase 64 U/L (38-126); Anion Gap 3 mmol/L (8-16); Aspartate Amino Transferase 21 U/L (17-59); Bilirubin,Total 0.4 mg/dL (0.2-1.3); Blood Urea Nitrogen 13 mg/dL (9-20); Calcium 8.7 mg/dL (8.4-10.2); Carbon Dioxide 27 mmol/L (22-30); Chloride 101 mmol/L (98-107); Estimated CRCL calculation 102 ml/min; Estimated Glomerular Filt Rate > 60; Glucose 119 mg/dL (65-110); Potassium 4.5 mmol/L (3.4-5.0); Sodium 131 mmol/L (137-145)
[2023-08-06 07:21] LABS: Crenated RBC 1+ (NORMAL); Hypochromasia 2+ (NORMAL); Ovalocytes 1+ (NORMAL); Platelet Estimate Adequate (Adequate); Schistocytes None Seen (NORMAL)
[2023-08-06] MEDS: FAMOTIDINE 20 MG TABLET 40 MG PO (08:30)
[2023-08-06] MEDS: POTASSIUM CHLORIDE 20 MEQ ER TABLET PO (08:30)
[2023-08-06] MEDS: FUROSEMIDE 40 MG TABLET PO (08:30)
[2023-08-06] MEDS: GABAPENTIN 400 MG CAPSULE PO ×3 (08:30→16:29)
[2023-08-06] MEDS: FERROUS SULFATE 325 MG TABLET DR BY MOUTH (08:30)
[2023-08-06] MEDS: AMOXICILLIN/CLAVULANATE K 875-125 MG TAB 1 TABLET PO ×2 (08:31→20:25)
[2023-08-06] MEDS: dilTIAZem HCL CD 180 MG CAP.24HR 360 MG PO (08:31)
[2023-08-06] MEDS: METOPROLOL SUCCINATE EXT REL 25 MG TABCR PO (08:31)
--- NOTE | 2023-08-06 13:03 | PM.PNGS ---
Progress Note: A&P Assessment and Plan (1) Stage 4 skin ulcer of sacral region: Code(s): L98.429 - Non-pressure chronic ulcer of back with unspecified severity Status: Acute Assessment and Plan: cont vac, will need vac change tomorrow, will need PICC for IV abx Subjective Subjective Date/Time Seen: 08/06/23 13:03 Interval history: feels ok, no acute issues Review of Systems Review of Systems: All systems reviewed & are unremarkable except as noted in HPI and below Exam Const: General: cooperative, comfortable, no acute distress and ill appearing Resp: Auscultation: clear to auscultation bilaterally Cardio: Rate: regular rate Rhythm: regular rhythm GI: Inspection: normal to inspection Back/Spine/Pelvis: Other: sacrum - vac C/D/I Objective Data Vital Signs Vital Signs: Vital Signs - 24 hr 08/05/23 14:05 08/05/23 15:35 08/05/23 15:50 Temperature 36.8 C 36.5 C Pulse Rate 63 100 78 Respiratory Rate 14 20 18 Blood Pressure 102/76 105/57 L 118/62 Pulse Oximetry 96 100 99 Oxygen Delivery Room Air Simple Face Mask Room Air Oxygen Flow Rate 15 08/05/23 16:05 08/05/23 16:20 08/05/23 16:35 Temperature Pulse Rate 69 61 68 Respiratory Rate 16 14 14 Blood Pressure 121/69 113/54 L 115/60 Pulse Oximetry 95 96 96 Oxygen Delivery Room Air Room Air Room Air Oxygen Flow Rate 08/05/23 17:00 08/05/23 18:27 08/05/23 16:55 Temperature 35.5 C L Pulse Rate 65 65 Respiratory Rate 14 22 H 18 Blood Pressure 121/62 Pulse Oximetry 96 100 99 Oxygen Delivery Room Air BiPAP Oxygen Flow Rate 08/05/23 17:10 08/05/23 17:40 08/05/23 18:40 Temperature 35.4 C L 35.7 C L 36.1 C L Pulse Rate 70 69 69 Respiratory Rate 18 18 18 Blood Pressure 114/67 120/73 92/62 L Pulse Oximetry 98 96 100 Oxygen Delivery Oxygen Flow Rate 08/05/23 20:27 08/05/23 23:26 08/06/23 01:12 Temperature 36.3 C L 36.4 C L Pulse Rate 72 80 67 Respiratory Rate 18 18 22 H Blood Pressure 110/65 107/70 Pulse Oximetry 98 96 97 Oxygen Delivery BiPAP Oxygen Flow Rate 08/05/23 23:10 08/06/23 02:59 08/06/23 08:31 Temperature 36.6 C Pulse Rate 67 60 60 Respiratory Rate 23 H 18 Blood Pressure 107/72 Pulse Oximetry 98 97 Oxygen Delivery BiPAP Oxygen Flow Rate 08/06/23 09:30 08/06/23 08:31 Temperature 36.1 C L Pulse Rate 76 Respiratory Rate 20 20 Blood Pressure 112/55 L Pulse Oximetry 96 96 Oxygen Delivery Room Air Oxygen Flow Rate Intake/Output Intake/Output: Intake & Output 08/03/23 08/04/23 08/05/23 08/06/23 23:59 23:59 23:59 23:59 Intake Total 2570 2661 1750 1080 Output Total 1850 1950 1200 300 Balance 720 711 550 780 Meds/Results Medications: Active Medications Generic Name Dose Route Start Last Admin Trade Name Freq PRN Reason Stop Dose Admin Acetaminophen 650 mg 08/01/23 22:41 08/04/23 09:18 Acetaminophen 325 Mg Tablet PO 650 mg Q4H PRN Administration Mild Pain (1-3) or Fever Albuterol 2.5 mg 08/02/23 06:18 Albuterol Sulfate Neb 2.5 Mg/3 Ml Inh INHALATION Q6HRT PRN Shortness Of Breath Amoxicillin/Clavulanate Potassium 1 tablet 08/05/23 09:00 08/06/23 08:31 Amoxicillin/Clavulanate K 875-125 Mg Tab PO 1 tablet Q12HR GABRIELLE Administration Atorvastatin Calcium 40 mg 08/02/23 21:00 08/05/23 21:00 Atorvastatin 40 Mg Tablet PO 40 mg HS GABRIELLE Administration Diltiazem HCl 360 mg 08/02/23 09:00 08/06/23 08:31 Diltiazem Hcl Cd 180 Mg Cap.24hr PO 360 mg QAM GABRIELLE Administration Famotidine 40 mg 08/02/23 09:00 08/06/23 08:30 Famotidine 20 Mg Tablet PO 40 mg DAILY GABRIELLE Administration Ferrous Sulfate 325 mg 08/02/23 09:00 08/06/23 08:30 Ferrous Sulfate [address] BY MOUTH 325 mg DAILY GABRIELLE Administration Furosemide 40 mg 08/02/23 09:00 08/06/23 08:30 Furosemide 40 Mg Tablet PO 40 mg DAILY GABRIELLE Administration Gabapentin 400 mg 08/02/23 09:00
--- NOTE | 2023-08-06 14:10 | P.PNAN_ITS ---
Anes - Prog Note Post-Op Date/Time: 08/06/23 14:10 Cardiovascular status: normal Respiratory status: normal Airway patency: baseline Mental status: baseline Post-Op hydration status: normal Vital Signs: Last Vital Signs Temp 37.1 C 08/06/23 11:45 Pulse 75 08/06/23 11:45 Resp 20 08/06/23 11:45 BP 100/46 L 08/06/23 11:45 Pulse Ox 96 08/06/23 11:45 O2 Del Method Room Air 08/06/23 08:31 O2 Flow Rate 15 08/05/23 15:35 FiO2 28 08/02/23 23:25 Pain Score (VAS): pt. asleep, no nonverbal signs of pain I/O: Intake & Output 08/05/23 08/06/23 08/06/23 23:59 07:59 15:59 Intake Total 1100 600 480 Output Total 75 300 Balance 1025 300 480 Laboratory Tests 08/06/23 06:01 08/06/23 06:01 08/06/23 06:01 WBC 8.1 RBC 3.82 L Hgb 9.4 L Hct 32.0 L MCV 83.8 MCH 24.6 L MCHC 29.4 L RDW 24.8 H Plt Count 328 MPV 9.8 Immature Gran % (Auto) 0.9 H Neut % (Auto) 88.9 H Lymph % (Auto) 6.8 L [place] % (Auto) 3.2 Eos % (Auto) 0.0 Baso % (Auto) 0.2 Lymph # (Auto) 0.55 L [place] # (Auto) 0.3 Eos # (Auto) 0.0 Baso # (Auto) 0.0 Abs Immat Gran (auto) 0.07 H Absolute Neuts (auto) 7.2 H Absolute Nucleated RBC 0.0 Nucleated RBC % 0.0 Platelet Estimate Adequate Hypochromasia 2+ Ovalocytes 1+ Crenated Cell 1+ Schistocytes None seen Sodium 131 L Potassium 4.5 Chloride 101 Carbon Dioxide 27 Anion Gap 3 L BUN 13 Creatinine 0.70 Estim Creat Clear Calc 102 Estimated GFR > 60 Glucose 119 H Calcium 8.7 Total Bilirubin 0.4 AST 21 ALT 15 Alkaline Phosphatase 64 Total Protein 5.0 L Albumin 2.4 L Microbiology 08/01/23 23:22 Blood Blood Culture - Preliminary Staphylococcus epidermidis 08/01/23 21:15 Decubitus Ulcer Wound Culture - Final Methicillin Resis Staph Aureus Post-procedural complaints: none Patient Feedback: Patient satisfied with anesthetic care.
--- NOTE | 2023-08-06 14:11 | PM.IMPN ---
Progress Note: A&P Assessment and Plan (1) Osteomyelitis of sacrum: Code(s): M46.28 - Osteomyelitis of vertebra, sacral and sacrococcygeal region Status: Acute (2) Stage 4 skin ulcer of sacral region: Code(s): L98.429 - Non-pressure chronic ulcer of back with unspecified severity Status: Acute (3) Colitis: Code(s): K52.9 - Noninfective gastroenteritis and colitis, unspecified Status: Acute Plan Osteomyelitis sacral -Blood cultures Staph epidermidis -Wound culture MRSA -CT showing sacral decubitus with sacral osteo. -IV vancomycin mcc MRSA in wound culture -Monitor for sepsis no current evidence -Monitor IV hydration. -Surgery consulted -Surgery 08/05/2023 for debridement and wound vac -Wound vac placed -PICC Colitis -PPI -diet as tolerated Chronic anemia -Resumed ferrous sulfate -Trend H&H -Transfuse hgb <7.0 COPD -Stable -Resumed home NIV while asleep -Inhaler PRN Diastolic heart failure -does not appear in exacerbation -continue home BB, Lasix Code status: Full code per patient DVT prophylaxis: Pradaxa/scd's Stress ulcer prophylaxis: Protonix 40 daily PT/OT notes: Bedbound Q2hr will have PT/OT evaluation Disposition: Patient continues admission for sacral decub with osteomyelitis, debridement 08/05, wound vac in place, PICC ordered will need ocean transportation intermediary ABX therapy. CC consulted hopefully current facility can facilitate IV ABX and wound vac. -Patient's previous records reviewed on admission -ER notes reviewed in detail on admission -discussed all findings and current treatment plan with patient/Family/POA -Consultations reviewed for recommendations -Patient's disposition for safe discharge discussed with case folder Dictation performed by [employer] direct speech recognition software, therefore medicare biller variants and typographical errors may occur. Time Spent With Patient Time with patient: 15 - 25 minutes Subjective Date/time seen: 08/06/23 14:11 Interval history: Chief Complaint: Wound infection Narrative: Patient was transferred to the emergency department from [facility], where he has been since discharge from [facility] recently.? He has history of sacral decubitus ulcer for which he has been getting treatment with topical antibiotics, there is a concern that this is worsening.? Family looked at this wound and found that way and draining foul-smelling discharge and decided to transfer him to the ED. no history of fever, chills, or weakness.? He was evaluated in the ER and found to have infected sacral decubitus bowel sounds sacral osteomyelitis, also found on CT scan to have colitis of the sigmoid colon.? [place] [address] with [place] CRP of 4.5.? He has received vancomycin cefepime and Flagyl.? I was consulted to admit this patient for further evaluation.? At bedside patient denies any symptoms 08/02: Patient reports mild to moderate pain to sacral area due stage 4 wound, per notes wound has worsened since patient went to SNF. Patient remained Afebrile overnight and WBC slightly elevated at 11.1 will trend. Continue with IV ABX therapy and de-escalate pending cultures. Surgery consulted for further recommendations may need further surgical debridement and possible wound vac. Patient reports bedbound since 09/2022 failure to thrive. 08/03: Patient cheerful laying in bed denies any pain. Plan is for surgical debridement on Saturday and wound vac placement. Will order PT/OT post surgery continue with Q2hr turns. 08/04: Patient comfortable with no complaints scheduled for surgery 08/05 with possible wound vac. Anemia Hgb stable continue to trend. 08/05: Patient comfortable no complaints going to OR today for debridement MRSA in wound will need IV ABX vancomycin length of therapy to be determined post surgery. 08/06: Patient laying in bed no complaints no current pain, wound vac in
[2023-08-06] MEDS: LIDOCAINE HCL 1% PF INJ 5 ML VIAL INFILTRATE (15:15)
[2023-08-06] MEDS: ATORVASTATIN 40 MG TABLET PO (20:25)
[2023-08-06] MEDS: CENTRAL LINE FLUSH 10 ML IV PUSH (20:25)
[2023-08-06 21:50] LABS: Vancomycin Trough 18.7 ug/mL (10.0-20.0)
[2023-08-07] VITALS (10 sets, daily range): BP systolic 94–115; BP diastolic 52–79; PULSE 54–72; RESP 18–25; TEMP 36.2–36.8; O2SAT 93–100
[2023-08-07 05:48] LABS: Basophils Percent Auto 0.3 % (0.2-1.2); Eosinophils Percent Auto 0.2 % (0-4.4); Hemoglobin 8.6 g/dL (14.0-18.0); Immature Granulocyte Absolute 0.09 K/mm3 (0.00-0.031); Immature Granulocyte Percent A 0.8 % (0-0.5); Lymphocytes Absolute Auto 0.89 K/mm3 (0.9-3.2); Lymphocytes Percent Auto 8.4 % (18.3-44.2); Mean Corpuscular HGB Conc 29.7 g/dl (32-36); Mean Corpuscular Hemoglobin 24.5 pg (26-34); Mean Corpuscular Volume 82.6 fl (80-100); Mean Platelet Volume 9.6 fl (7.4-10.4); Monocytes Absolute Auto 0.8 K/mm3 (0.1-0.6); Monocytes Percent Auto 7.6 % (2.6-8.5); Neutrophils Absolute Auto 8.8 K/mm3 (1.3-6.7); Neutrophils Percent Auto 82.7 % (45.5-73.1); Platelet Count Result 328 k/mm3 (150-375); Red Blood Count 3.51 M/mm3 (4.6-6.20); Red Cell Distribution Width 24.8 % (11.5-14.5); White Blood Count 10.7 K/mm3 (4.5-10.0)
[2023-08-07] MEDS: CENTRAL LINE FLUSH 10 ML IV PUSH ×3 (05:58→20:24)
[2023-08-07 05:59] LABS: Alanine Aminotransferase 17 U/L (6-50); Albumin Level 2.3 g/dL (3.5-5.1); Alkaline Phosphatase 62 U/L (38-126); Anion Gap 3 mmol/L (8-16); Aspartate Amino Transferase 26 U/L (17-59); Bilirubin,Total 0.3 mg/dL (0.2-1.3); Blood Urea Nitrogen 15 mg/dL (9-20); Calcium 8.5 mg/dL (8.4-10.2); Carbon Dioxide 30 mmol/L (22-30); Chloride 102 mmol/L (98-107); Estimated CRCL calculation 90 ml/min; Estimated Glomerular Filt Rate > 60; Glucose 111 mg/dL (65-110); Sodium 135 mmol/L (137-145)
[2023-08-07 08:01] LABS: Anisocytosis 1+ (NORMAL); Hypochromasia 2+ (NORMAL); Platelet Estimate Adequate (Adequate); Schistocytes None Seen (NORMAL)
[2023-08-07] MEDS: FAMOTIDINE 20 MG TABLET 40 MG PO (09:01)
[2023-08-07] MEDS: AMOXICILLIN/CLAVULANATE K 875-125 MG TAB 1 TABLET PO ×2 (09:01→20:23)
[2023-08-07] MEDS: FERROUS SULFATE 325 MG TABLET DR BY MOUTH (09:01)
[2023-08-07] MEDS: METOPROLOL SUCCINATE EXT REL 25 MG TABCR PO (09:01)
[2023-08-07] MEDS: dilTIAZem HCL CD 180 MG CAP.24HR 360 MG PO (09:01)
[2023-08-07] MEDS: POTASSIUM CHLORIDE 20 MEQ ER TABLET PO (09:04)
[2023-08-07] MEDS: FUROSEMIDE 40 MG TABLET PO (09:05)
[2023-08-07] MEDS: GABAPENTIN 400 MG CAPSULE PO ×3 (09:05→17:59)
--- NOTE | 2023-08-07 09:58 | PCNFU ---
Nutrition Follow-Up Complete: Moderate protein calorie malnutrition related to reduced appetite and intake with increased nutrient needs for wound healing as evidenced by significant weight loss of -10% x 1 month, poor po intake for greater than 1 week, noted stage III coccyx. Goal: PO intake 75% of meals and suppelments - Progressing. Continue with same goal Pt current nutrition is Heart healthy diet with intakes 50-100%. Ensure Compact BID for additional 220 kcal and 9 g protein each. Nutrition recommendation: Continue with current nutrition care plan Last recorded weight is 140 kg. Bowel Motility: +1 BM 08/05/23 Labs Reviewed: Hgb 8.6, Hct 29, Alb 2.3, Na 135 Meds Noted: Lasix, Zofran Skin: Stage III coccyx Additional Notes: Pt had debridement 08/05/23. Wound vac in place. Discharge planning to SNF in progress. Continue with current nutrition care plan Monitor intake, wt, labs, skin, Follow up in 5 days.
--- NOTE | 2023-08-07 12:15 | PM.PNGS ---
Progress Note: A&P Assessment and Plan (1) Stage 4 skin ulcer of sacral region: Code(s): L98.429 - Non-pressure chronic ulcer of back with unspecified severity Status: Acute Assessment and Plan: vac change today, if looks good will start looking for placement, will need PICC and IV abx Subjective Subjective Date/Time Seen: 08/07/23 12:15 Interval history: no acute issues Review of Systems Review of Systems: All systems reviewed & are unremarkable except as noted in HPI and below Exam Const: General: cooperative, comfortable, no acute distress and ill appearing Resp: Auscultation: clear to auscultation bilaterally Cardio: Rate: regular rate Rhythm: regular rhythm GI: Inspection: normal to inspection Back/Spine/Pelvis: Other: vac - C/D/I Objective Data Vital Signs Vital Signs: Vital Signs - 24 hr 08/06/23 16:45 08/06/23 20:00 08/06/23 20:00 Temperature 36.1 C L 36.6 C Pulse Rate 84 84 66 Respiratory Rate 20 20 19 Blood Pressure 97/55 L 108/56 L Pulse Oximetry 95 95 96 Oxygen Delivery Room Air Fraction of Inspired Oxygen 08/07/23 00:52 08/07/23 00:00 08/07/23 04:11 Temperature 36.6 C Pulse Rate 68 57 L 66 Respiratory Rate 25 H 20 25 H Blood Pressure 94/53 L Pulse Oximetry 96 97 96 Oxygen Delivery BiPAP BiPAP Fraction of Inspired Oxygen 08/07/23 04:00 08/07/23 08:00 08/07/23 09:01 Temperature 36.6 C Pulse Rate 54 L 54 L 60 Respiratory Rate 20 18 Blood Pressure 101/57 L 115/66 Pulse Oximetry 98 94 Oxygen Delivery Fraction of Inspired Oxygen 08/07/23 09:00 08/07/23 11:59 Temperature 36.4 C L Pulse Rate 69 Respiratory Rate 20 Blood Pressure 105/62 Pulse Oximetry 100 Oxygen Delivery Room Air Fraction of Inspired Oxygen Intake/Output Intake/Output: Intake & Output 08/04/23 08/05/23 08/06/23 08/07/23 23:59 23:59 23:59 23:59 Intake Total 2661 1750 1670 590 Output Total 1950 1200 700 250 Balance 711 550 970 340 Meds/Results Medications: Active Medications Generic Name Dose Route Start Last Admin Trade Name Freq PRN Reason Stop Dose Admin Acetaminophen 650 mg 08/01/23 22:41 08/04/23 09:18 Acetaminophen 325 Mg Tablet PO 650 mg Q4H PRN Administration Mild Pain (1-3) or Fever Albuterol 2.5 mg 08/02/23 06:18 Albuterol Sulfate Neb 2.5 Mg/3 Ml Inh INHALATION Q6HRT PRN Shortness Of Breath Amoxicillin/Clavulanate Potassium 1 tablet 08/05/23 09:00 08/07/23 09:01 Amoxicillin/Clavulanate K 875-125 Mg Tab PO 1 tablet Q12HR GABRIELLE Administration Atorvastatin Calcium 40 mg 08/02/23 21:00 08/06/23 20:25 Atorvastatin 40 Mg Tablet PO 40 mg HS GABRIELLE Administration Dabigatran 150 mg 08/07/23 17:00 Dabigatran Etexilate 150 Mg Capsule PO BID GABRIELLE Diltiazem HCl 360 mg 08/02/23 09:00 08/07/23 09:01 Diltiazem Hcl Cd 180 Mg Cap.24hr PO 360 mg QAM GABRIELLE Administration Famotidine 40 mg 08/02/23 09:00 08/07/23 09:01 Famotidine 20 Mg Tablet PO 40 mg DAILY GABRIELLE Administration Ferrous Sulfate 325 mg 08/02/23 09:00 08/07/23 09:01 Ferrous Sulfate [address] BY MOUTH 325 mg DAILY GABRIELLE Administration Furosemide 40 mg 08/02/23 09:00 08/07/23 09:05 Furosemide 40 Mg Tablet PO 40 mg DAILY GABRIELLE Administration Gabapentin 400 mg 08/02/23 09:00 08/07/23 09:05 Gabapentin 400 Mg Capsule PO 400 mg TID GABRIELLE Administration Vancomycin HCl 1,500 mg in 500 mls @ 250 mls/hr 08/06/23 23:00 08/06/23 23:27 Vancomycin 1,500 Mg/Ns 500 Ml IVPB 250 mls/hr Q18H GABRIELLE Administration Metoprolol Succinate 25 mg 08/02/23 09:00 08/07/23 09:01 Metoprolol Succinate Ext Rel 25 Mg Tabcr PO 25 mg DAILY GABRIELLE Administration Ondansetron HCl 4 mg 08/01/23 22:41 Ondansetron Inj 4 Mg/2 Ml Vial IV PUSH Q4H PRN Nausea Potassium Chloride 20 meq 08/02/23 08:00 01/31/24 09:04 Potassium Chloride 20 Meq Er Tablet PO
--- NOTE | 2023-08-07 14:29 | PM.IMPN ---
Progress Note: A&P Assessment and Plan (1) Osteomyelitis of sacrum: Code(s): M46.28 - Osteomyelitis of vertebra, sacral and sacrococcygeal region Status: Acute Assessment and Plan: Osteomyelitis sacral -Blood cultures Staph epidermidis x1 bottle. Likely a contaminate. -Wound culture MRSA -CT showing sacral decubitus with sacral osteo. 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 (2) Stage 4 skin ulcer of sacral region: Code(s): L98.429 - Non-pressure chronic ulcer of back with unspecified severity Status: Acute Assessment and Plan: -Would care PRN. -Wound vac in place. (3) Colitis: Code(s): K52.9 - Noninfective gastroenteritis and colitis, unspecified Status: Acute Assessment and Plan: Colitis -PPI -diet as tolerated (4) CHF (congestive heart failure): Code(s): I50.9 - Heart failure, unspecified Status: Acute Assessment and Plan: Diastolic heart failure -does not appear in exacerbation -continue home BBNahomy (5) Anemia: Qualifiers: Anemia type: unspecified type Qualified Code(s): D64.9 - Anemia, unspecified Code(s): D64.9 - Anemia, unspecified Status: Acute Assessment and Plan: Chronic anemia -Resumed ferrous sulfate -Trend H&H -Transfuse hgb <7.0 Subjective Date/time seen: 08/07/23 14:29 Interval history: Patient doing well today. He denies any pain. He had PICC line placed yesterday and wound VAC is in place. Care coordination in the room while discussing care with both patient and his daughter. Waiting on insurance authorization to come through for patient to be discharged to SNF. There was miss communication with therapy regarding patient's mobility status. According to patient and his daughter he has just been immobile for about 1 week and not for several months. PT and OT were reordered. Exam Narrative: GENERAL: Comfortable, no acute distress HENMT: moist mucous membranes EYES: EOM intact b/l NECK: no lymphadenopathy RESPIRATORY: clear to auscultation CARDIO: RRR GI: soft, nontender, bowel sounds present SKIN: Sacral wound VAC in place EXTREMITIES: no edema, redness or tenderness Objective Data Vital Signs Vital Signs: Vital Signs - 24 hr 08/06/23 16:45 08/06/23 20:00 08/06/23 20:00 Temperature 96.9 F L 98 F Pulse Rate 84 84 66 Respiratory Rate 20 20 19 Blood Pressure 97/55 L 108/56 L Pulse Oximetry 95 95 96 Oxygen Delivery Room Air Fraction of Inspired Oxygen 28 08/07/23 00:52 08/07/23 00:00 08/07/23 04:11 Temperature 97.8 F Pulse Rate 68 57 L 66 Respiratory Rate 25 H 20 25 H Blood Pressure 94/53 L Pulse Oximetry 96 97 96 Oxygen Delivery BiPAP BiPAP Fraction of Inspired Oxygen 08/07/23 04:00 08/07/23 08:00 08/07/23 09:01 Temperature 97.9 F Pulse Rate 54 L 54 L 60 Respiratory Rate 20 18 Blood Pressure 101/57 L 115/66 Pulse Oximetry 98 94 Oxygen Delivery Fraction of Inspired Oxygen 08/07/23 09:00 08/07/23 11:59 Temperature 97.5 F L Pulse Rate 69 Respiratory Rate 20 Blood Pressure 105/62 Pulse Oximetry 100 Oxygen Delivery Room Air Fraction of Inspired Oxygen Intake/Output Intake/Output: Intake & Output 08/04/23 08/05/23 08/06/23 08/07/23 23:59 23:59 23:59 23:59 Intake Total 2661 1750 1670 590 Output Total 1950 1200 700 250 Balance 711 550 970 340 Meds/Results Medications: Active Medications Generic Name Dose Route Start Last Admin Trade Name Ronaldq PRN Reason Stop Dose Admin Acetaminophen 650 mg 08/01/23 22:41 08/04/23 09:18 Acetaminophen 325 Mg Tablet PO 650 mg Q4H PRN Administration Mild Pain (1-3) or Fever Albuterol 2.5 mg
[2023-08-07] MEDS: VANCOMYCIN 1,500 MG/NS 500 ML 1,500 MG/500 ML BAG 250 MG IVPB (17:59)
[2023-08-07] MEDS: DABIGATRAN ETEXILATE 150 MG CAPSULE PO (17:59)
[2023-08-07] MEDS: ATORVASTATIN 40 MG TABLET PO (20:24)
[2023-08-08] VITALS (9 sets, daily range): BP systolic 111–127; BP diastolic 50–71; PULSE 6–86; RESP 14–183; TEMP 35.3–37.4; O2SAT 95–99; BMI 10.0
[2023-08-08 06:07] LABS: Basophils Percent Auto 0.4 % (0.2-1.2); Eosinophils Absolute Auto 0.1 K/mm3 (0-0.3); Eosinophils Percent Auto 1.3 % (0-4.4); Hematocrit 30.3 % (42.0-52.0); Hemoglobin 8.7 g/dL (14.0-18.0); Immature Granulocyte Absolute 0.14 K/mm3 (0.00-0.031); Immature Granulocyte Percent A 1.4 % (0-0.5); Lymphocytes Absolute Auto 1.21 K/mm3 (0.9-3.2); Lymphocytes Percent Auto 12.4 % (18.3-44.2); Mean Corpuscular HGB Conc 28.7 g/dl (32-36); Mean Corpuscular Hemoglobin 24.2 pg (26-34); Mean Corpuscular Volume 84.2 fl (80-100); Mean Platelet Volume 9.4 fl (7.4-10.4); Monocytes Absolute Auto 1.2 K/mm3 (0.1-0.6); Monocytes Percent Auto 12.3 % (2.6-8.5); Neutrophils Percent Auto 72.2 % (45.5-73.1); Platelet Count Result 284 k/mm3 (150-375); Red Cell Distribution Width 24.9 % (11.5-14.5); White Blood Count 9.7 K/mm3 (4.5-10.0)
[2023-08-08 06:17] LABS: Alanine Aminotransferase 22 U/L (6-50); Albumin Level 2.3 g/dL (3.5-5.1); Alkaline Phosphatase 61 U/L (38-126); Anion Gap 2 mmol/L (8-16); Aspartate Amino Transferase 34 U/L (17-59); Bilirubin,Total 0.4 mg/dL (0.2-1.3); Blood Urea Nitrogen 15 mg/dL (9-20); Calcium 8.4 mg/dL (8.4-10.2); Carbon Dioxide 31 mmol/L (22-30); Chloride 101 mmol/L (98-107); Estimated CRCL calculation 90 ml/min; Estimated Glomerular Filt Rate > 60; Glucose 98 mg/dL (65-110); Potassium 3.8 mmol/L (3.4-5.0); Sodium 134 mmol/L (137-145)
[2023-08-08] MEDS: AMOXICILLIN/CLAVULANATE K 875-125 MG TAB 1 TABLET PO ×2 (08:41→20:59)
[2023-08-08] MEDS: POTASSIUM CHLORIDE 20 MEQ ER TABLET PO (08:41)
[2023-08-08] MEDS: FERROUS SULFATE 325 MG TABLET DR BY MOUTH (08:42)
[2023-08-08] MEDS: FAMOTIDINE 20 MG TABLET 40 MG PO (08:42)
[2023-08-08] MEDS: DABIGATRAN ETEXILATE 150 MG CAPSULE PO ×2 (08:42→17:58)
[2023-08-08] MEDS: METOPROLOL SUCCINATE EXT REL 25 MG TABCR PO (08:42)
[2023-08-08] MEDS: dilTIAZem HCL CD 180 MG CAP.24HR 360 MG PO (08:42)
[2023-08-08] MEDS: FUROSEMIDE 40 MG TABLET PO (08:42)
[2023-08-08] MEDS: GABAPENTIN 400 MG CAPSULE PO ×3 (08:42→17:58)
[2023-08-08 08:55] LABS: Anisocytosis 1+ (NORMAL); Hypochromasia 1+ (NORMAL); Platelet Estimate Adequate (Adequate); Schistocytes None Seen (NORMAL)
[2023-08-08] MEDS: VANCOMYCIN 1,500 MG/NS 500 ML 1,500 MG/500 ML BAG 250 MG IVPB (12:12)
--- NOTE | 2023-08-08 14:06 | PM.IMPN ---
Progress Note: A&P Assessment and Plan (1) Osteomyelitis of sacrum: Code(s): M46.28 - Osteomyelitis of vertebra, sacral and sacrococcygeal region Status: Acute Assessment and Plan: Osteomyelitis sacral -Blood cultures Staph epidermidis x1 bottle. Likely a contaminate. -Wound culture MRSA -CT showing sacral decubitus with sacral osteo. 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 (2) Stage 4 skin ulcer of sacral region: Code(s): L98.429 - Non-pressure chronic ulcer of back with unspecified severity Status: Acute Assessment and Plan: -Would care PRN. -Wound vac in place. (3) Colitis: Code(s): K52.9 - Noninfective gastroenteritis and colitis, unspecified Status: Acute Assessment and Plan: Colitis -PPI -diet as tolerated (4) CHF (congestive heart failure): Code(s): I50.9 - Heart failure, unspecified Status: Acute Assessment and Plan: Diastolic heart failure -does not appear in exacerbation -continue home BB, Lasix (5) Anemia: Qualifiers: Anemia type: unspecified type Qualified Code(s): D64.9 - Anemia, unspecified Code(s): D64.9 - Anemia, unspecified Status: Acute Assessment and Plan: Chronic anemia -Resumed ferrous sulfate -Trend H&H -Transfuse hgb <7.0 Subjective Date/time seen: 08/08/23 14:06 Interval history: Waiting on insurance authorization. Patient doing well today with no complaints. Exam Narrative: GENERAL: Comfortable, no acute distress HENMT: moist mucous membranes EYES: EOM intact b/l NECK: no lymphadenopathy RESPIRATORY: clear to auscultation CARDIO: RRR GI: soft, nontender, bowel sounds present SKIN: Sacral wound VAC in place EXTREMITIES: no edema, redness or tenderness Objective Data Vital Signs Vital Signs: Vital Signs - 24 hr 08/07/23 15:59 08/07/23 22:02 08/07/23 20:00 Temperature 98.2 F 97.1 F L Pulse Rate 72 65 65 Respiratory Rate 20 22 H 20 Blood Pressure 103/52 L 112/79 Pulse Oximetry 96 95 93 Oxygen Delivery BiPAP Fraction of Inspired Oxygen 08/08/23 00:00 08/08/23 02:02 08/08/23 04:00 Temperature 96.9 F L 97.6 F Pulse Rate 60 6 L 68 Respiratory Rate 22 H 22 H 18 Blood Pressure 127/67 121/65 Pulse Oximetry 98 96 97 Oxygen Delivery BiPAP Fraction of Inspired Oxygen 08/08/23 08:00 08/08/23 08:00 08/08/23 12:00 Temperature 95.6 F L 97.1 F L Pulse Rate 68 71 82 Respiratory Rate 18 18 183 H Blood Pressure 116/71 120/50 L Pulse Oximetry 97 97 97 Oxygen Delivery BiPAP Fraction of Inspired Oxygen 28 Intake/Output Intake/Output: Intake & Output 08/05/23 08/06/23 08/07/23 08/08/23 23:59 23:59 23:59 23:59 Intake Total 1750 1670 2070 900 Output Total 8097 475 9353 1100 Balance 623 788 2178 -200 Meds/Results Medications: Active Medications Generic Name Dose Route Start Last Admin Trade Name Freq PRN Reason Stop Dose Admin Acetaminophen 650 mg 08/01/23 22:41 08/04/23 09:18 Acetaminophen 325 Mg Tablet PO 650 mg Q4H PRN Administration Mild Pain (1-3) or Fever Albuterol 2.5 mg 08/02/23 06:18 Albuterol Sulfate Neb 2.5 Mg/3 Ml Inh INHALATION Q6HRT PRN Shortness Of Breath Amoxicillin/Clavulanate Potassium 1 tablet 08/05/23 09:00 08/08/23 08:41 Amoxicillin/Clavulanate K 875-125 Mg Tab PO 1 tablet Q12HR GABRIELLE Administration Atorvastatin Calcium 40 mg 08/02/23 21:00 08/07/23 20:24 Atorvastatin 40 Mg Tablet PO 40 mg HS GABRIELLE Administration Dabigatran 150 mg 08/07/23 17:00 08/08/23 08:42 Dabigatran Etexilate 150 Mg Capsule PO 150 mg BID GABRIELLE Administration Diltiazem HCl 360 mg 08/02/23 09:00 08/08/23 08:42 Diltiaze
[2023-08-08] MEDS: CENTRAL LINE FLUSH 10 ML IV PUSH ×2 (15:41→22:50)
[2023-08-08] MEDS: ATORVASTATIN 40 MG TABLET PO (20:59)
[2023-08-08] MEDS: DOCUSATE SODIUM 100 MG CAPSULE PO (20:59)
[2023-08-09 02:50] VITALS: RESP 24
[2023-08-09 04:00] VITALS: BP 106/62; PULSE 80; RESP 13; TEMP 36.6; O2SAT 98
[2023-08-09] MEDS: VANCOMYCIN 1,500 MG/NS 500 ML 1,500 MG/500 ML BAG 250 MG IVPB (05:09)
[2023-08-09 05:11] LABS: Basophils Percent Auto 0.2 % (0.2-1.2); Eosinophils Absolute Auto 0.1 K/mm3 (0-0.3); Eosinophils Percent Auto 0.6 % (0-4.4); Hematocrit 28.8 % (42.0-52.0); Hemoglobin 8.6 g/dL (14.0-18.0); Immature Granulocyte Absolute 0.15 K/mm3 (0.00-0.031); Immature Granulocyte Percent A 1.1 % (0-0.5); Lymphocytes Absolute Auto 0.96 K/mm3 (0.9-3.2); Lymphocytes Percent Auto 6.9 % (18.3-44.2); Mean Corpuscular HGB Conc 29.9 g/dl (32-36); Mean Corpuscular Hemoglobin 24.5 pg (26-34); Mean Corpuscular Volume 82.1 fl (80-100); Mean Platelet Volume 9.4 fl (7.4-10.4); Monocytes Absolute Auto 1.5 K/mm3 (0.1-0.6); Neutrophils Absolute Auto 11.2 K/mm3 (1.3-6.7); Neutrophils Percent Auto 80.2 % (45.5-73.1); Platelet Count Result 245 k/mm3 (150-375); Red Blood Count 3.51 M/mm3 (4.6-6.20); Red Cell Distribution Width 24.8 % (11.5-14.5)
[2023-08-09 05:19] LABS: Platelet Estimate Adequate (Adequate)
[2023-08-09] MEDS: CENTRAL LINE FLUSH 10 ML IV PUSH ×2 (05:20→12:52)
[2023-08-09 05:25] LABS: Anisocytosis 1+ (NORMAL); Hypochromasia 1+ (NORMAL); Ovalocytes 1+ (NORMAL); Poikilocytosis 1+ (NORMAL); Schistocytes None Seen (NORMAL)
[2023-08-09 05:31] LABS: Alanine Aminotransferase 19 U/L (6-50); Albumin Level 2.3 g/dL (3.5-5.1); Alkaline Phosphatase 61 U/L (38-126); Anion Gap 2 mmol/L (8-16); Aspartate Amino Transferase 24 U/L (17-59); Bilirubin,Total 0.5 mg/dL (0.2-1.3); Blood Urea Nitrogen 14 mg/dL (9-20); Calcium 8.3 mg/dL (8.4-10.2); Carbon Dioxide 33 mmol/L (22-30); Chloride 99 mmol/L (98-107); Estimated CRCL calculation 102 ml/min; Estimated Glomerular Filt Rate > 60; Glucose 106 mg/dL (65-110); Potassium 3.6 mmol/L (3.4-5.0); Sodium 134 mmol/L (137-145)
[2023-08-09 05:34] LABS: Vancomycin Trough 12.6 ug/mL (10.0-20.0)
[2023-08-09 08:02] VITALS: BP 109/59; PULSE 78; RESP 20; TEMP 36.3; O2SAT 94
[2023-08-09 08:15] VITALS: O2SAT 94
[2023-08-09 08:16] VITALS: PULSE 86
[2023-08-09] MEDS: polyethylene glycoL 3350 17 GM POWD.PACK PO (08:16)
[2023-08-09] MEDS: DABIGATRAN ETEXILATE 150 MG CAPSULE PO (08:16)
[2023-08-09] MEDS: FERROUS SULFATE 325 MG TABLET DR BY MOUTH (08:16)
[2023-08-09] MEDS: POTASSIUM CHLORIDE 20 MEQ ER TABLET PO (08:16)
[2023-08-09] MEDS: METOPROLOL SUCCINATE EXT REL 25 MG TABCR PO (08:16)
[2023-08-09] MEDS: DOCUSATE SODIUM 100 MG CAPSULE PO (08:17)
[2023-08-09] MEDS: AMOXICILLIN/CLAVULANATE K 875-125 MG TAB 1 TABLET PO (08:17)
[2023-08-09] MEDS: dilTIAZem HCL CD 180 MG CAP.24HR 360 MG PO (08:17)
[2023-08-09] MEDS: FUROSEMIDE 40 MG TABLET PO (08:17)
[2023-08-09] MEDS: GABAPENTIN 400 MG CAPSULE PO ×2 (08:17→12:52)
[2023-08-09] MEDS: FAMOTIDINE 20 MG TABLET 40 MG PO (08:17)
--- NOTE | 2023-08-09 13:00 | PM.DS ---
DS: Admitting Diagnosis Discharge Date 08/09/23 Admitting Diagnosis sacral ulcer infection DS: Discharge Diagnosis Discharge Diagnosis (1) Osteomyelitis of sacrum: Code(s): M46.28 - Osteomyelitis of vertebra, sacral and sacrococcygeal region Status: Acute (2) Stage 4 skin ulcer of sacral region: Code(s): L98.429 - Non-pressure chronic ulcer of back with unspecified severity Status: Acute (3) Colitis: Code(s): K52.9 - Noninfective gastroenteritis and colitis, unspecified Status: Acute (4) CHF (congestive heart failure): Code(s): I50.9 - Heart failure, unspecified Status: Acute (5) Anemia: Qualifiers: Anemia type: unspecified type Qualified Code(s): D64.9 - Anemia, unspecified Code(s): D64.9 - Anemia, unspecified Status: Acute DS: Summary Hospital Course Hospital Course: This is a 82-year-old male with a past medical history of CHF, CVA, AFib, colon cancer, hyperlipidemia, hypertension and neuropathy that presented to the ED on 08/01/2023 due to sacral decubitus ulcer. Patient was at [facility]. He had been receiving topical treatment for this. Patient's family noticed foul-smelling drainage/ discharge coming from the sacral ulcer and requested patient be sent to the hospital. CT scan showing sacral osteomyelitis. Patient had mildly elevated white blood cell count 16085. He was started on vancomycin, cefepime and Flagyl. General surgery was consulted. Patient underwent debridement of the wound. Wound culture came back positive for MRSA and patient was transition to just IV vancomycin. Wound Care consult with the patient and wound VAC was placed. patient had PICC line placed on 08/06/2023 and will receive IV vancomycin at his nursing facility. Patient was accepted into [facility] and will go to rehab portion of this. He was accepted on 08/09/2023 patient was discharged to SNF. Time Spent with Patient Time attestation: Total time spent providing and/or coordinating discharge services: Exam Narrative: GENERAL: Comfortable, no acute distress HENMT: moist mucous membranes EYES: EOM intact b/l NECK: no lymphadenopathy RESPIRATORY: clear to auscultation CARDIO: RRR GI: soft, nontender, bowel sounds present SKIN: Sacral wound VAC in place EXTREMITIES: no edema, redness or tenderness DS: Data Data Completed and Pending Labs on day of discharge: Labs from last 24 hours 08/09/23 05:04 WBC 14.0 H RBC 3.51 L Hgb 8.6 L Hct 28.8 L MCV 82.1 MCH 24.5 L MCHC 29.9 L RDW 24.8 H Plt Count 245 MPV 9.4 Immature Gran % (Auto) 1.1 H Neut % (Auto) 80.2 H Lymph % (Auto) 6.9 L Steele % (Auto) 11.0 H Eos % (Auto) 0.6 Baso % (Auto) 0.2 Lymph # (Auto) 0.96 Steele # (Auto) 1.5 H Eos # (Auto) 0.1 Baso # (Auto) 0.0 Abs Immat Gran (auto) 0.15 H Absolute Neuts (auto) 11.2 H Absolute Nucleated RBC 0.0 Nucleated RBC % 0.0 Platelet Estimate Adequate Hypochromasia 1+ Poikilocytosis 1+ Anisocytosis 1+ Ovalocytes 1+ Schistocytes None seen Sodium 134 L Potassium 3.6 Chloride 99 Carbon Dioxide 33 H Anion Gap 2 L BUN 14 Creatinine 0.70 Estim Creat Clear Calc 102 Estimated GFR > 60 Glucose 106 Calcium 8.3 L Total Bilirubin 0.5 AST 24 ALT 19 Alkaline Phosphatase 61 Total Protein 5.0 L Albumin 2.3 L Vancomycin Trough 12.6 Discharge Plan Discharge Attending physician on discharge: Bright Patiño Consulting providers: Ceci Mckenzie Discharging Clinician: Renee Pena Patient Disposition: SNF Activity: as tolerated Diet: regular Wound Care Instructions: follow printed instructions Discharge Instructions: Wound Vac Therapy to sacral ulcer. Setting: -125mmHg low continuous pressure, black foam only. Track to hip. Change dressing 3 times per week. If wound vac fails: Daily apply Silver gel and Aquacel AG rope to wound, lightly fill with dry gauze fluffs
[2023-08-09 14:00] VITALS: BP 113/58; PULSE 77; RESP 24; TEMP 36.1; O2SAT 95
[2023-08-09 14:37] LABS: SARS-CoV-2 RNA PCR Negative (Negative)
== END 2023-08-09 17:20 | DRG 500 ==
LOC: ANHED 23:27 → ANH3MEDSUR 08-02 14:11
PROVIDERS: Nurse Practitioner Family; Surgery; Admitting Provider Student in an Organized Health Care Education/Training Program; Emergency Provider Student in an Organized Health Care Education/Training Program; PCP Family Medicine; Visit Provider Internal Medicine Critical Care Medicine
PROC: 0KBN0ZZ Excision of Right Hip Muscle, Open Approach (ICD-10-PCS; principal; 2023-08-05 15:00)
DX: M46.28 Osteomyelitis of vertebra, sacral and sacrococcygeal region (principal); L89.154 Pressure ulcer of sacral region, stage 4; E87.1 Hypo-osmolality and hyponatremia; I48.20 Chronic atrial fibrillation, unspecified; I50.32 Chronic diastolic (congestive) heart failure; I11.0 Hypertensive heart disease with heart failure; K52.9 Noninfective gastroenteritis and colitis, unspecified; B95.62 Methicillin resistant Staphylococcus aureus infection as the cause of diseases classified elsewhere; J44.9 Chronic obstructive pulmonary disease, unspecified; D64.9 Anemia, unspecified; E78.5 Hyperlipidemia, unspecified; E88.09 Other disorders of plasma-protein metabolism, not elsewhere classified; M48.00 Spinal stenosis, site unspecified; G62.9 Polyneuropathy, unspecified; Z20.822 Contact with and (suspected) exposure to COVID-19; Z96.649 Presence of unspecified artificial hip joint; I69.320 Aphasia following cerebral infarction; Z85.038 Personal history of other malignant neoplasm of large intestine
CPT/HCPCS: 36415; 36569; 74177; 80048; 80053; 80202; 83605; 85025; 85652; 86140; 87040; 87070; 87205; 87635; 94002; 94003; 96365; 97110; 97162; 97167; 97530; 99285; A9270; J0692; J1100; J1836; J2405; J2704; J3010; J3370; J7030; J7120; Q9967

== ENCOUNTER 2023-08-15 07:48 | Outpatient (RCR) | payer MEDICARE, SELFPAY ==
[2023-08-14 14:33] LABS: Hematocrit 24.3 % (42.0-52.0); Hemoglobin 7.1 g/dL (14.0-18.0)
[2023-08-15] VITALS (10 sets, daily range): BP systolic 97–116; BP diastolic 53–71; PULSE 64–89; RESP 16–20; TEMP 36.4–36.9; O2SAT 97–99
[2023-08-15] MEDS: ACETAMINOPHEN 325 MG TABLET 650 MG PO (08:53)
[2023-08-15] MEDS: SODIUM CHLORIDE 0.9% IV 250 ML 30 ML IV CONT (08:53)
[2023-08-15] MEDS: diphenhydrAMINE HCl CAP 25 MG CAPSULE PO (08:53)
[2023-08-15] MEDS: FUROSEMIDE INJ 40 MG/4 ML VIAL IV PUSH (12:30)
== END 2023-11-12 23:59 | disposition home or self-care (01) ==
LOC: ANHCPCTRAN 07:48
PROVIDERS: PCP Family Medicine; Visit Provider Family Medicine
DX: D64.9 Anemia, unspecified (principal)
CPT/HCPCS: 36415; 36430; 36591; 85014; 85018; 86850; 86900; 86901; 86923; 96374; 99202; A9270; G0463; J1940; J7050; P9016

== ENCOUNTER 2023-10-08 09:51 | Outpatient (CLI) | payer MEDICARE, SELFPAY ==
--- NOTE | ~2023-10-08 | CT_ITS ---
Clinical Indication: Colon cancer CT Scan of the Chest, Abdomen, and Pelvis with Contrast: Technique: Contiguous sections were acquired throughout the chest, abdomen, and pelvis after intraven ous administration of 100 cc of Omnipaque 350. Dose reduction technique was used on this scan by henrik canales automated exposure control and iterative reconstruction technique. The dose-length product (DL P) was 1936.28 mGy-cm. COMPARISON: 08/01/2023 Findings: Right infrahilar and right retrocrural lymphadenopathy are similar to prior exam. No new adenopathy i dentified. No aortic aneurysm dissection. No pulmonary embolus seen. No pericardial effusion. Minimal right pleural effusion present. No left pleural effusion. The lungs are clear. No pulmonary nodules or infiltrates are noted. The liver, spleen, pancreas, gallbladder, and adrenal glands are within normal limits. Stable bilater al renal cysts. There are atherosclerotic calcifications of the aorta. No lymphadenopathy. No bowel obstruction or bowel wall thickening. There is no evidence to suggest acute appendicitis. Urinary bladder is collapsed around a Noe catheter. There is streak artifact and pelvis from bilate ral hip arthroplasties. No gross pelvic mass seen. No ascites. Small fat-containing left inguinal her rafael. Probable sacral decubitus ulcer again noted. 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 Impression: Stable right infrahilar and right retrocrural lymphadenopathy. Minimal right pleural effusion. Probable sacral decubitus ulcer again present. Reviewed, dictated and finalized at [facility]. Impression: Stable right infrahilar and right retrocrural lymphadenopathy. Minimal right pleural effusion. Probable sacral decubitus ulcer again present.
[2023-10-08 11:11] LABS: Estimated Glomerular Filt Rate > 60
== END 2023-10-08 09:52 | disposition home or self-care (01) ==
PROVIDERS: PCP Family Medicine
DX: C18.3 Malignant neoplasm of hepatic flexure (principal); R59.0 Localized enlarged lymph nodes; J90 Pleural effusion, not elsewhere classified
CPT/HCPCS: 71260; 74177; Q9967

== ENCOUNTER 2024-04-04 15:21 | Emergency (ER) | payer MEDICARE, SELFPAY ==
[2024-04-04 15:47] VITALS: BP 117/90; PULSE 107; RESP 18; TEMP 36.5; O2SAT 95
[2024-04-04 17:57] VITALS: RESP 22
--- NOTE | 2024-04-04 18:21 | ED.FALL ---
HPI - Fall General Chief Complaint: Fall Stated Complaint: FELL OUT OF WC DURING ABRUPT STOP Time Seen by Provider: 04/04/24 17:55 History of Present Illness HPI Narrative: 83-year-old male present to the emergency department for evaluation for multiple skin tears. Patient's family was driving the vehicle stopped quickly and patient slid from his wheelchair resulting in multiple skin tears. Patient is uncomfortable sitting in the wheelchair but denies striking his head denies any other pain. Related Data Home Medications Medication Instructions Recorded Confirmed diltiazem HCl 360 mg 360 mg PO DAILY 09/18/22 08/02/23 capsule,extended release 24 hr (Cardizem CD) gabapentin 400 mg capsule 400 mg PO TID 09/18/22 08/02/23 metoprolol succinate 25 mg 25 mg PO DAILY 09/18/22 08/02/23 tablet,extended release 24 hr dabigatran etexilate 150 mg 150 mg PO BID 06/28/23 08/02/23 capsule (Pradaxa) famotidine 40 mg tablet 40 mg PO DAILY 06/28/23 08/02/23 ondansetron 4 mg disintegrating 4 mg PO DAILY 06/28/23 08/02/23 tablet Allergies Allergy/AdvReac Type Severity Reaction Status Date / Time No Known Allergies Allergy Mild Verified 08/15/23 08:28 Review of Systems Review of Systems: All systems reviewed & are unremarkable except as noted in HPI and below PMFSH Past Medical History Medical History (Updated 04/04/24 @ 18:56 by Jacob Tan MD) Acute CHF (congestive heart failure) Acute CVA (cerebrovascular accident) Anemia Atrial fibrillation Cataracts, bilateral CHF (congestive heart failure) Colon cancer Hyperlipidemia Hypertension Neuropathy Spinal stenosis Surgical History Surgical History History of hip replacement, total 4 times History of removal of pigmented skin lesion Family History Family History Sibling Heart failure Social History Social History Social History: The patient has two adopted children and is . He lives alone. Currently living at [facility]. 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 Code status full code Smoking status: Never smoker Alcohol intake: never Substance use: never Substance use type: does not use Do You Feel Safe in your Home?: Yes Lack of Transportation: No Lack of Food: Never True Current Housing: I Have Housing Concerned About Future Housing: No Difficulty Paying Gas/Electric Bills: No Difficulty Paying for Meds: No Currently Unemployed: No Education: Master's Degree or Higher Difficulty w/ Childcare or Family Care: No Spiritual care concerns: No Exam Narrative: APPEARANCE: Well-appearing no distress HEAD: normocephalic, atraumatic. EYES: PERRLA/EOMI, conjunctivae clear. NOSE: Normal no drainage EARS:TMS clear with good light reflex. THROAT: Pharynx clear, no exudate. NECK: Supple. No adenopathy, no masses. RESPIRATORY: Airway patent, respirations nonlabored. Clear to auscultation bilaterally, no rales, rhonchi, wheezing. CARDIOVASCULAR: Regular rate and rhythm without murmurs rubs or gallops. ABDOMINAL: Soft, nontender, nondistended, normal bowel sounds MUSCULOSKELETAL: Moves all extremities. Strength/ROM intact, No edema, No calf tenderness. NEURO: Alert. Cranial nerves II through XII intact. Good gait. Good coordination SKIN: Multiple skin tears to bilateral arms hands and right leg Course Vital Signs Vital signs: Vital Signs Temperature 97.7 F 04/04/24 15:47 Pulse Rate 107 H 04/04/24 15:47 Respiratory Rate 18 04/04/24 15:47 Blood Pressure 117/90 04/04/24 15:47 Pulse Oximetry 95 04/04/24 15:47 Oxygen Delivery Room Air 04/04/24 15:47 Temperature 97.7 F 04/04/24 15:47 Pulse Rate 107 H 04/04/24 15:47 Respiratory Rate 22 H 04/04/24 17:57 Blood Pressure 120/85 04/04/24 19:08 Pulse Oximetry 95
[2024-04-04 19:08] VITALS: BP 120/85
--- NOTE | 2024-04-04 19:17 | PC.NURSE ---
Pt family concerned about pt orientation EDP ordered cardiac work up. family (POA) refused. pt family just wanted steri stripped and discharged.
== END 2024-04-04 19:49 ==
PROVIDERS: Emergency Provider Emergency Medicine; PCP Family Medicine
DX: S41.112A Laceration without foreign body of left upper arm, initial encounter (principal); S41.111A Laceration without foreign body of right upper arm, initial encounter; S61.412A Laceration without foreign body of left hand, initial encounter; S61.411A Laceration without foreign body of right hand, initial encounter; S81.811A Laceration without foreign body, right lower leg, initial encounter; I50.9 Heart failure, unspecified; I11.0 Hypertensive heart disease with heart failure; I48.91 Unspecified atrial fibrillation; E78.5 Hyperlipidemia, unspecified; G62.9 Polyneuropathy, unspecified; L89.90 Pressure ulcer of unspecified site, unspecified stage; Z96.643 Presence of artificial hip joint, bilateral; Z86.73 Personal history of transient ischemic attack (TIA), and cerebral infarction without residual deficits; Z79.01 Long term (current) use of anticoagulants; Z79.899 Other long term (current) drug therapy; W05.0XXA Fall from non-moving wheelchair, initial encounter
CPT/HCPCS: 99282

== ENCOUNTER 2024-04-12 15:41 | Emergency (ER) | payer MEDICARE, SELFPAY ==
[2024-04-12] VITALS (38 sets, daily range): BP systolic 96–200; BP diastolic 54–99; PULSE 86–132; RESP 14–34; TEMP 36.6; O2SAT 94–100
--- NOTE | ~2024-04-12 | CT_ITS ---
EXAMINATION: CT chest abdomen pelvis w con DATE: 04/12/2024 20:15 INDICATION: cancer, altered mental status . TECHNIQUE: Computed tomography (CT) of the chest, abdomen, and pelvis was performed with 100 mL Omnip aque-350 intravenous contrast. Automated exposure control and iterative reconstruction technique were employed. The dose-length product was 2059.13 mGy-cm. COMPARISON: 10/08/2023 FINDINGS: CHEST: Thoracic aorta: No significant dilation. No dissection. Mild arch calcification. Lung parenchyma and airways: Bilateral dependent atelectasis. Calcified granulomas. Patent airways. Thoracic inlet, axillae and chest wall: No thyroid or soft tissue mass. No axillary lymphadenopathy. Mediastinum: No mass or lymphadenopathy. Calcified lymph nodes. Heart and pericardium: Normal heart size. No pericardial effusion. Coronary artery calcifications: Moderate. Pleura: Moderate volume right and small volume left pleural fluid collections. Thoracic bones: No acute osseous finding in the chest. DISH. T5 vertebral body hemangioma. ABDOMEN/PELVIS: Liver: Normal. Biliary/Gallbladder: Gallbladder is normal. No bile duct dilation. Pancreas: No mass or duct dilation. Spleen: Normal. Adrenals:No mass. Kidneys: No suspicious mass, obstructing stone, or hydronephrosis. Bilateral renal cortical thinning. Multiple bilateral simple renal cysts measuring up to 9.8 cm on the right. Additional subcentimeter hypodensities too small to characterize but likely represent cysts. GI tract: No small bowel dilation. The rectum is dilated to 7.6 cm by formed stool, with mild surroun ding wall thickening and inflammatory stranding. Normal appendix. Diverticulosis without diverticulit is. Mesentery/Peritoneum: No ascites, mass, or free air. Retroperitoneum: No mass . Redemonstration of the right retrocrural lymphadenopathy Pelvis: Partially obscured by metal artifact. The urinary bladder is decompressed by a Noe catheter . Soft Tissues: Moderate trunk edema Abdominopelvic bones: No acute osseous finding in the abdomen/pelvis. Bilateral hip arthroplasty margarita dware. DISH. Multilevel severe bilateral neural foraminal and central canal narrowing secondary to de generative changes. Sacral decubitus ulcer, decreased in size since prior examination. IMPRESSION: Moderate right and small left pleural effusions. Fecal impaction with mild wall thickening and inflammatory changes can be seen with early/mild sterco ral colitis. Improving sacral decubitus ulcer. Reviewed, dictated and finalized at location K. IMPRESSION: Moderate right and small left pleural effusions. Fecal impaction with mild wall thickening and inflammatory changes can be seen with early/mild stercoral colitis. Improving sacral decubitus ulcer.
--- NOTE | ~2024-04-12 | CT_ITS ---
EXAMINATION: CT brain wo con DATE: 04/12/2024 16:57 INDICATION: altered mental statu . TECHNIQUE: Computed tomography (CT) of the head was performed without intravenous contrast. The mA wa s adjusted according to patient size. Iterative reconstruction technique was employed. The dose-lengt h product was 605.33 mGy-cm. COMPARISON: 07/02/2023. FINDINGS: No acute intracranial hemorrhage or extra-axial fluid collection. No hydrocephalus, mass, or herniation. No acute ischemic infarct. Unremarkable dural venous sinus attenuation. No acute osseous abnormality. Sphenoid mucosal thickening, the remaining aerated spaces are clear. Mild atrophy and chronic white matter change. Atherosclerotic intracranial calcification. Chronic lef t MCA territory infarct. IMPRESSION: No acute intracranial process. Reviewed, dictated and finalized at location K.
--- NOTE | ~2024-04-12 | XR_ITS ---
EXAMINATION: XR chest 1V portable Exam Date/Time: 04/12/2024 17:10 CDT HISTORY: possible pneumonia Comparison: 08/06/2023. RESULT: Lines, tubes, and devices: None. Lungs and pleura: Streaky subsegmental left basilar opacities. Mild bilateral costophrenic angle fabio nting. Cardiomediastinal silhouette: Stable. Other: No acute osseous or upper abdominal finding. IMPRESSION: Subsegmental left basilar atelectasis/consolidation. Possible small bilateral pleural effusions. Reviewed, dictated and finalized at location K. IMPRESSION: Subsegmental left basilar atelectasis/consolidation. Possible small bilateral p leural effusions.
--- NOTE | 2024-04-12 16:05 | ECG_ITS ---
Test Date: 2024-04-12 16:38:21 Measurements Intervals [place] Rate: 115 P: 0 MO: 0 QRS: -10 QRSD: 125 T: 22 QT: 304 QTc: 421 Interpretive Statements ATRIAL FIBRILLATION WITH RAPID VENTRICULAR RESPONSE INDETERMINATE AXIS RIGHT BUNDLE BRANCH BLOCK [120+ ms QRS DURATION, UPRIGHT V1, 40+ ms S IN I/aVL/V4/V5/V6] No previous ECG available for comparison Electronically Signed On 04-12-2024 21:07:54 CDT by Jeannie Salazar M.D.
[2024-04-12 16:47] LABS: Basophils Percent Auto 0.3 % (0.2-1.2); Eosinophils Absolute Auto 0.1 K/mm3 (0-0.3); Eosinophils Percent Auto 0.7 % (0-4.4); Hematocrit 28.3 % (42.0-52.0); Immature Granulocyte Absolute 0.07 K/mm3 (0.00-0.031); Immature Granulocyte Percent A 0.7 % (0-0.5); Lymphocytes Absolute Auto 0.79 K/mm3 (0.9-3.2); Mean Corpuscular HGB Conc 28.3 g/dl (32-36); Mean Corpuscular Hemoglobin 22.3 pg (26-34); Mean Corpuscular Volume 78.8 fl (80-100); Mean Platelet Volume 9.6 fl (7.4-10.4); Monocytes Absolute Auto 1.1 K/mm3 (0.1-0.6); Monocytes Percent Auto 11.5 % (2.6-8.5); Neutrophils Absolute Auto 7.8 K/mm3 (1.3-6.7); Neutrophils Percent Auto 78.8 % (45.5-73.1); Nucleated Red Blood Cells Perc 0.2 % (0.0-0.2); Platelet Count Result 430 k/mm3 (150-375); Red Blood Count 3.59 M/mm3 (4.6-6.20); Red Cell Distribution Width 16.9 % (11.5-14.5); White Blood Count 9.9 K/mm3 (4.5-10.0)
--- NOTE | 2024-04-12 16:58 | ED.AMS ---
HPI - Altered Mental Status General Chief Complaint: Altered Mental Status Stated Complaint: AMS Time Seen by Provider: 04/12/24 15:41 Source: patient, EMS, RN notes reviewed and old records reviewed Mode of arrival: EMS History of Present Illness HPI narrative: This is an 83 year old male who presents for evaluation of altered mental status. He presents from [place] with report patient had weakness today and he was unable to get up from wheelchair. Patient does not seem to know why he is here. He states he is sleepy. He denies chest pain, shortness of breath, abdominal pain, nausea or vomiting. He has wounds to his extremities from a fall 1 week ago. Patient's family reports patient is not ambulatory and he does not stand or transfer. They report he is vern lift. They report that patient does not seem to have slurred speech here and he is at his baseline now. They report on was confused. He gets confused when he does not use his BIPAP/ Related Data Home Medications Medication Instructions Recorded Confirmed diltiazem HCl 360 mg 360 mg PO DAILY 09/18/22 04/08/24 capsule,extended release 24 hr (Cardizem CD) gabapentin 400 mg capsule 400 mg PO TID 09/18/22 04/08/24 metoprolol succinate 25 mg 25 mg PO DAILY 09/18/22 04/08/24 tablet,extended release 24 hr dabigatran etexilate 150 mg 150 mg PO BID 06/28/23 04/08/24 capsule (Pradaxa) famotidine 40 mg tablet 40 mg PO DAILY 06/28/23 04/08/24 ondansetron 4 mg disintegrating 4 mg PO DAILY 06/28/23 04/08/24 tablet Allergies Allergy/AdvReac Type Severity Reaction Status Date / Time No Known Allergies Allergy Mild Verified 08/15/23 08:28 Review of Systems Constitutional: Constitutional: Denies weakness Cardiovascular: Cardiovascular: Denies syncope, Denies rapid heart rate, Denies irregular heart rhythm, Reports leg edema (chronic) and Denies dyspnea Respiratory: Respiratory: Denies chest congestion, Denies hemoptysis, Denies excessive phlegm production and Denies dyspnea Gastrointestinal: Gastrointestinal: Denies abdominal pain, Denies diarrhea and Denies vomiting Genitourinary: Genitourinary: Denies hematuria, Denies dysuria, Denies penile discharge and Denies testicular pain Musculoskeletal: Musculoskeletal: Denies joint swelling, Denies loss of height and Denies muscle weakness Neurologic: Denies syncope, Denies focal weakness and Denies weakness PMFSH Past Medical History Medical History Acute CHF (congestive heart failure) Acute CVA (cerebrovascular accident) Anemia Atrial fibrillation Cataracts, bilateral CHF (congestive heart failure) Colon cancer Hyperlipidemia Hypertension Neuropathy Spinal stenosis Surgical History Surgical History History of hip replacement, total 4 times History of removal of pigmented skin lesion Family History Family History Sibling Heart failure Social History Social History Social History: The patient has two adopted children and is . He lives alone. Currently living at [facility]. 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 Code status full code Smoking status: Never smoker Alcohol intake: never Substance use: never Substance use type: does not use Do You Feel Safe in your Home?: Yes Lack of Transportation: No Lack of Food: Never True Current Housing: I Have Housing Concerned About Future Housing: No Difficulty Paying Gas/Electric Bills: No Difficulty Paying for Meds: No Currently Unemployed: No Education: Master's Degree or Higher Difficulty w/ Childcare or Family Care: No Spiritual care concerns: No Exam Const: General: no acute distress and alert Nutritional Appearance: well nourished and obese Orientation/consciousness: pat
[2024-04-12 17:04] LABS: INR 1.7; Prothrombin Time 20.6 Seconds (11.1-14.7)
[2024-04-12 17:05] LABS: Alanine Aminotransferase 13 U/L (6-50); Albumin Level 2.1 g/dL (3.5-5.1); Alkaline Phosphatase 75 U/L (38-126); Anion Gap 0 mmol/L (4-12); Aspartate Amino Transferase 21 U/L (17-59); Bilirubin,Total 0.4 mg/dL (0.2-1.3); Blood Urea Nitrogen 43 mg/dL (9-20); Calcium 8.2 mg/dL (8.4-10.2); Carbon Dioxide 38 mmol/L (22-30); Chloride 94 mmol/L (98-107); Estimated CRCL calculation 96 ml/min; Estimated Glomerular Filt Rate > 60; Glucose 110 mg/dL (65-110); Partial Thromboplastin Time 57.1 Seconds (22.3-36.8); Potassium 4.2 mmol/L (3.4-5.0); Sodium 132 mmol/L (137-145)
[2024-04-12 17:33] LABS: Add Urine Microscopic? YES; Appearance Urine Clear (Clear); Bacteria Urine Rare /hpf; Bilirubin Urine Negative (Negative); Blood Urine Negative (Negative); Color Urine Yellow (Yellow); Glucose Urine UA Negative (Negative); Ketones Urine Negative (Negative); Leukocyte Esterase Ur 2+ LEU/UL (Negative); Need Manual Microscopic Reviewed; Nitrate Urine Negative (Negative); Protein Urine Negative (Negative); RBC Urine 0-2 /hpf (0-2); Specific Grav Ur 1.014 (1.001-1.035); Squamous Epithelial Cell Urine None Seen /hpf (Few); Urobilinogen Urine 0.2 mg/dL (<2.0)
[2024-04-12 18:55] LABS: Alveolar/Arterial O2 Gradient 35.1 mmHg; Base Excess ABG 6.2 mEq/l (+/-2.0); Carboxyhemoglobin 1.5 % THb (0-2.0); Fractional Inspired Oxygen 21 %; HCO3 ABG 29.9 mEq/l (22.0-26.0); Methemoglobin ABG 0.3 %THb (0-1.5); Oxygen Content ABG 11.3 %vol (16.0-22.0); Oxygen Saturation ABG 94.7 % (95.0-100.0); PCO2 ABG 39.7 mmHg (35.0-45.0); PO2 ABG 67.1 mmHg (80.0-100.0); Reduced Hemoglobin 6.2 %THb (0-5.0); Total Hemoglobin 8.7 g/dL (12.0-18.0); pH ABG 7.495 (7.350-7.450)
[2024-04-12 19:01] LABS: Modified Allen's Test Pass; Site Drawn LEFT RADIAL
--- NOTE | 2024-04-12 19:11 | PC.NURSE ---
Report received from KHANG Faulkner. Assumed care of patient at this time.
--- NOTE | 2024-04-12 19:44 | PC.NURSE ---
Patient in CT at this time while on monitor.
--- NOTE | 2024-04-12 20:06 | PC.NURSE ---
aircraft maintenance technician called this RN, stated that the IV in AC was leaking and tender. IV was removed. New IV placed, 22g in R forearm.
--- NOTE | 2024-04-12 22:26 | PC.NURSE ---
Attempted to call report multiple times, no answer and getting disconnected.
[2024-04-12] MEDS: ATORVASTATIN 40 MG TABLET PO (22:54)
[2024-04-12] MEDS: METOPROLOL SUCCINATE EXT REL 25 MG TABCR PO (22:54)
--- NOTE | 2024-04-12 22:58 | PC.NURSE ---
EMS were here to transport patient and patients bp was elevated. Patient getting aggravated with attempt to get bp. Haroldo, patients nurse from [place] called and notified of patients BP. Haroldo stated that patient did not get any of his bp meds today. This RN verified patients bp meds from the [place] and ordered them per MASSIMO Flowers. Patient was given meds and water. Updated report given to EMS at bedside. Haroldo called back and stated that he requests patient to have lower bp. This RN informed him that the patient was just given medication, and patient agitated and refused any repeat bp's. Patient states you're not doing that, I am not letting you take another blood pressure, I want to go home. Haroldo notified that the patient is being sent back via EMS at this time with chart and belongings.
== END 2024-04-12 23:12 ==
PROVIDERS: Emergency Provider General Practice; PCP Family Medicine
DX: N39.0 Urinary tract infection, site not specified (principal); D64.9 Anemia, unspecified; K56.41 Fecal impaction; I50.9 Heart failure, unspecified; I11.0 Hypertensive heart disease with heart failure; I48.91 Unspecified atrial fibrillation; E78.5 Hyperlipidemia, unspecified; G62.9 Polyneuropathy, unspecified; Z85.038 Personal history of other malignant neoplasm of large intestine; Z86.73 Personal history of transient ischemic attack (TIA), and cerebral infarction without residual deficits; Z96.643 Presence of artificial hip joint, bilateral; Z79.899 Other long term (current) drug therapy; I45.10 Unspecified right bundle-branch block; J90 Pleural effusion, not elsewhere classified
CPT/HCPCS: 36415; 36600; 70450; 71045; 71260; 74177; 80053; 81001; 82375; 82805; 83050; 85018; 85025; 85610; 85730; 87086; 93005; 96365; 99284; A9270; J0696; Q9967

== ENCOUNTER 2024-04-20 09:59 | Outpatient (RCR) | payer MEDICARE, SELFPAY ==
--- NOTE | 2024-04-20 11:12 | OPREHPOC ---
Outpatient Therapy Plan of Care This is a Multidisciplinary Plan of Care that may contain components documented by all disciplines (PT, OT, and ST.) PT Problem 1 PT Problem #1 Knowledge Deficit PT Goal 1 Goal / Goal Update Modified independence and consistency with HEP Target Visit 5 PT Problem 2 PT Problem #2 Impaired Strength PT Goal 1 Goal / Goal Update Improve ignacio hip flexion strength to 4/5 to improve foot positioning ability and functional control of hips Target Visit 10 PT Goal 2 Goal / Goal Update Improve ignacio shoulder extension to 4+/5 to improve triceps press up for sit to stand transfer Target Visit 10 PT Goal 1 Goal / Goal Update Patient will demonstrate ability to perform self pressure relief in chair through LE and UE press up Target Visit 10 PT Goal 2 Goal / Goal Update Patient will perform sit to stand using UE and LE with Mod A x 1 in parallel bars for pressure relief and initiation of transfer to mobility chair Target Visit 10
--- NOTE | 2024-04-20 11:12 | PTOPEVAL1 ---
Assessment and note entered by Steve Nicholson, PT Evaluation Information Assessment Status Evaluation Diagnosis History of CVA ICD-10 Condition Codes (PT) Weakness R53.1 Onset September 2022 Subjective Information Patient has [facility] History of [facility] care with bed sore and emergency sore. He has been nursing bed sore since July of 2023. He was on a wound vac since November. He has spinal stenosis but was able to transfer from chair to mobility scooter prior to July of 2023 and he was living in assisted living. Family reports that he was able to walk short distances with a walker at this time. Reports that they had a small accident in the mobility van in the past 2 weeks in which he shifted forward in the van. Knees are still a little sore from the accident . Daughter and son in law present for evaluation to help answer questions secondary to patient aphasia. Reported Pain Level Pain Score 0: Self Report Pain Score 0: Self Report Assessment PT Clinical Summary Patient presents to clinic with severe weakness and debilitation. He is currently a total assist with Rosangela for transfer and family goal is to work towards sit to stand transfer. I do feel this is a lofty goal but family motivated and patient willing to participate. His weakness in both arms and legs will need to be addressed to work towards self help to reduce need for help with transfer activity. Patient will benefit from skilled therapy to address weakness and functional decline in ultimate hope to perform sit to stand for pressure relief and transfer ability. Plan of Care Interventions Neuro Re-education,Therapeutic Activities, Therapeutic Exercise PT Services Indicated Yes Treatment Frequency and 2x/week for 10 visits Duration These treatments will address the objective and functional deficits as defined above. The patient will be advanced safely and appropriately in order for the patient to progress towards his/her prior level of function. Additional exercises will be introduced and as well as a comprehensive home exercise program upon discharge, if needed, ?to ensure carryover of functional gains achieved in the clinic. This treatment plan has been reviewed and agreement upon by the patient.
--- NOTE | 2024-04-20 14:23 | STOPEVAL1 ---
Assessment and note entered by Amanda Vargas [employer] Evaluation Information Assessment Status Evaluation Assessment Status Evaluation ICD-10 Condition Codes (ST) I69.320 Onset 09/27 Subjective Information Patient had a CVA over one year ago; he received Speech Therapy at [facility], and then through [facility] for seven months, when family report significant progress was made. Patient then developed CHF and bedsore requiring hospitalization, and then was discharged to [place] where he received very little Speech Therapy. Daughter and son-in-law, who were present for this evaluation, report because patient has regressed secondary to those hospitalizations, they are requesting continued Speech Therapy. Reported Pain Level Pain Score 0: Self Report Pain Score 0: Self Report Assessment ST Clinical Summary Patient was given [facility] Adult Language Evaluation and was found to have severe receptive aphasia characterized as reduced ability to respond to moderate-complex level yes/no questions and paragraph level stories although overall good ability to understand short, functional yes/no questions and stories when questions were offered in a yes/no format. He also presents with severe expressive aphasia characterized as reduced ability to imitate poly-syllabic words, phrases, and sentences, complete open-ended statements, respond to simple wh-questions, list items per category, and name function of objects. He did exhibit good ability to complete automatic/rote memory tasks once cued to begin, and good ability to name single, common items in room when shown the item by therapist, with delayed response times . Therapist verbal and visual cues assisted with patient's ability to complete all tasks. Patient surprisingly exhibited good ability to read and comprehend single words, phrases, and simple to moderate level directions and statements. Patient will benefit from skilled Speech Therapy twice weekly for 9 additional visits to address receptive/expressive language and reading comprehension to assist with communication. Patient agreeable and family motivated to participate in order to facilitate patient's improved communicat
--- NOTE | 2024-04-30 07:33 | PTOPDC ---
Assessment and note entered by Steve Nicholson, PT Evaluation Information Assessment Status Discharge - Pt Not Present Diagnosis History of CVA ICD-10 Condition Codes (PT) Weakness R53.1 Onset September 2022 Subjective Information Patient daughter contacted clinic stating that Mr. Scanlon had taken a turn for the worse and will be placed on hospice care at this time. Requested cancellation of all current standing PT appointments. Assessment PT Clinical Summary Patient to be discharged from skilled therapy at this time due to change of status with patient transitioning to hospice care. Only Evaluation was completed at this time. Plan of Care PT Services Indicated No
--- NOTE | 2024-04-30 10:39 | STOPDC ---
Assessment and note entered by ARACELI Miranda Evaluation Information Assessment Status Discharge - Pt Not Presen Assessment Status Discharge - Pt Not Presen Reported Pain Level Pain Score 0: Self Report Assessment ST Clinical Summary DISCHARGE SUMMARY Patient was seen for a Speech Therapy evaluation and a plan of care was devised for further Speech Therapy at patient's request and agreement. Patient's status declined and patient was placed on Hospice care and discharged from skilled services. Plan of Care ST Services Indicated No
== END 2024-04-30 10:29 | disposition home or self-care (01) ==
LOC: ANHPT 09:59
PROVIDERS: PCP Family Medicine; Visit Provider Family Medicine
DX: I69.320 Aphasia following cerebral infarction (principal); R53.81 Other malaise
CPT/HCPCS: 92523; 97110; 97161

== ENCOUNTER 2024-04-22 17:35 | Emergency (ER) | payer MEDICARE, SELFPAY ==
[2024-04-22] VITALS (10 sets, daily range): BP systolic 66–131; BP diastolic 15–81; PULSE 97–133; RESP 15–43; TEMP 36.7; O2SAT 90–100
--- NOTE | ~2024-04-22 | XR_ITS ---
EXAMINATION: XR chest 1V portable DATE: 04/22/2024 18:13 INDICATION: Shortness of breath. TECHNIQUE: A single frontal view of the chest was obtained. COMPARISON: Chest view is 04/12/2024, chest CT 04/12/2024 FINDINGS: There is a small right pleural effusion. There is mild atelectasis at the lung bases. A joyce cified left lung nodule and calcified left hilar and mediastinal lymph nodes are consistent with old granulomatous disease. No pneumothorax. The heart size is normal. IMPRESSION: 1. Small right pleural effusion. 2. Mild atelectasis at the lung bases. Reviewed, dictated and finalized at location A.
--- NOTE | 2024-04-22 17:52 | ED.GENADULT ---
HPI - General Adult General Chief complaint: Shortness of Breath/Dyspnea Stated complaint: resp distress Time Seen by Provider: 04/22/24 17:47 History of Present Illness HPI narrative: 83 YEARS OLD WHITE MALE CAME FROM [facility] BY AMBULANCE BECAUSE OF SHORTNESS OF BREATH AND HYPOXIA. THE JAIL STAFF NOTED THAT THE PATIENT IS LESS RESPONSIVE, LETHARGIC, WITH OXYGENATION IN THE 70S. START NASAL CANNULA AT 2 L WITHOUT IMPROVEMENT, UP TO 4 L WITHOUT IMPROVEMENT CALL 911. PATIENT HAD HISTORY OF DEMENTIA, ON BIPAP AT NIGHT, NO OXYGEN SUPPLEMENT DURING DAYTIME. PATIENT IS DNI. Related Data Home Medications Medication Instructions Recorded Confirmed diltiazem HCl 360 mg 360 mg PO DAILY 09/18/22 04/08/24 capsule,extended release 24 hr (Cardizem CD) gabapentin 400 mg capsule 400 mg PO TID 09/18/22 04/08/24 metoprolol succinate 25 mg 25 mg PO DAILY 09/18/22 04/08/24 tablet,extended release 24 hr dabigatran etexilate 150 mg 150 mg PO BID 06/28/23 04/08/24 capsule (Pradaxa) famotidine 40 mg tablet 40 mg PO DAILY 06/28/23 04/08/24 ondansetron 4 mg disintegrating 4 mg PO DAILY 06/28/23 04/08/24 tablet Allergies Allergy/AdvReac Type Severity Reaction Status Date / Time No Known Allergies Allergy Mild Verified 08/15/23 08:28 Review of Systems Review of Systems: ROS unobtainable: Yes unobtainable due to medical condition PMFSH Past Medical History Medical History Acute CHF (congestive heart failure) Acute CVA (cerebrovascular accident) Anemia Atrial fibrillation Cataracts, bilateral CHF (congestive heart failure) Colon cancer Hyperlipidemia Hypertension Neuropathy Spinal stenosis Surgical History Surgical History History of hip replacement, total 4 times History of removal of pigmented skin lesion Family History Family History Sibling Heart failure Social History Social History Social History: The patient has two adopted children and is . He lives alone. Currently living at [facility]. 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 Code status full code Smoking status: Never smoker Alcohol intake: never Substance use: never Substance use type: does not use Do You Feel Safe in your Home?: Yes Lack of Transportation: No Lack of Food: Never True Current Housing: I Have Housing Concerned About Future Housing: No Difficulty Paying Gas/Electric Bills: No Difficulty Paying for Meds: No Currently Unemployed: No Education: Master's Degree or Higher Difficulty w/ Childcare or Family Care: No Spiritual care concerns: No Exam Narrative: GENERAL APPEARANCE: WELL-DEVELOPED, WELL-NOURISHED, DEBILITATING, SEVERELY L, BIPAP ON SKIN: PALE, 3+ EDEMA LOWER EXTREMITY BILATERALLY UP TO THE THIGH AREA, WEEPING FLUID HEAD: NORMOCEPHALIC, NONTRAUMATIC EYES: CLEAR CONJUNCTIVA ENT: BIPAP ON CHEST AND RESPIRATORY: POOR AIR ENTRY BILATERALLY, NO WHEEZING OR RHONCHI HEART: TACHYCARDIA, IRREGULAR IRREGULARITY ABDOMEN: SOFT, NONTENDER, NO ORGANOMEGALY, QUIET BOWEL SOUNDS VASCULAR: NORMAL PERIPHERAL PULSES, POOR CAPILLARY REFILL MUSCULOSKELETAL: NORMAL RANGE OF MOTION, NONTENDER BACK NEUROLOGIC: ALERT AND DISORIENTED TIME 4 Course Vital Signs Vital signs: Vital Signs Temperature 36.7 C 04/22/24 17:37 Pulse Rate 116 H 04/22/24 17:37 Respiratory Rate 20 04/22/24 17:37 Blood Pressure 131/65 04/22/24 17:37 Pulse Oximetry 100 04/22/24 17:37 Oxygen Delivery BiPA
--- NOTE | 2024-04-22 19:00 | PC.NURSE ---
Patient placed comfort care. Patient resting in stretcher with family at bedside.
--- NOTE | 2024-04-22 19:15 | PC.NURSE ---
This RN received report from KHANG Faulkner that the day Dr. Espinoza states pt does not need an IV due to pt being on comfort measures.
--- NOTE | 2024-04-22 19:16 | ECG_ITS ---
Test Date: 2024-04-22 19:16:57 Measurements Intervals [place] Rate: 54 P: 0 UT: 0 QRS: 146 QRSD: 98 T: 158 QT: 409 QTc: 389 Interpretive Statements SINUS RHYTHM WITH SINUS ARRHYTHMIA WITH A JUNCTIONAL BEAT INCOMPLETE RIGHT BUNDLE BRANCH BLOCK [90+ ms QRS DURATION, TERMINAL R IN V1/V2, 40+ ms S IN I/aVL/V4/V5/V6] LEFT POSTERIOR FASCICULAR BLOCK [QRS AXIS > 109, INFERIOR Q] MODERATE ST DEPRESSION [0.05+ mV ST DEPRESSION] Compared to ECG 04/12/2024 16:38:21 SINUS RHYTHM NOW PRESENT INCOMPLETE RIGHT BUNDLE BRANCH BLOCK NOW PRESENT Electronically Signed On 04-23-2024 10:19:46 CDT by Jadyn Rhodes M.D.
--- NOTE | 2024-04-22 19:30 | PCCCNOTE ---
Called to the ED for hospice referral. Pt is on BiPAP and family would like comfort care only. Pt Son and daughter, along with other family members at bedside. The daughter, Zahra Scanlon, is the POA [phone]. They would like the pt to be admitted to [facility]. Dr. Espinoza would like pt admitted GIP. I contacted Lesvia, the auto suspension and steering mechanic contact for [facility], she was given all his information, a chart was copied for her and left at the charge nurses station in the ED and also faxed to the main office of [facility]. Family verbalized understanding of hospice and did not have any further questions for me. Terri, the admitting [facility] nurse called with a 50 min ETA at 1910. Family and charge nurse updated on this information.
== END 2024-04-22 21:15 | disposition hospice, inpatient (51) ==
PROVIDERS: Emergency Provider Emergency Medicine; PCP Family Medicine
DX: J96.21 Acute and chronic respiratory failure with hypoxia (principal); Z51.5 Encounter for palliative care; F03.90 Unspecified dementia, unspecified severity, without behavioral disturbance, psychotic disturbance, mood disturbance, and anxiety; I50.9 Heart failure, unspecified; I11.0 Hypertensive heart disease with heart failure; I48.91 Unspecified atrial fibrillation; E78.5 Hyperlipidemia, unspecified; E66.01 Morbid (severe) obesity due to excess calories; Z68.42 Body mass index [BMI] 45.0-49.9, adult; G62.9 Polyneuropathy, unspecified; Z85.038 Personal history of other malignant neoplasm of large intestine; Z86.73 Personal history of transient ischemic attack (TIA), and cerebral infarction without residual deficits; Z96.649 Presence of unspecified artificial hip joint; Z79.899 Other long term (current) drug therapy; I45.2 Bifascicular block
CPT/HCPCS: 71045; 93005; 94002; 99285

== ENCOUNTER 2024-04-22 21:16 | HOS | payer OTHER, SELFPAY ==
--- OUTSIDE RECORDS SUMMARY | 2024-04-22 21:34 | XMS_ITS | Clinical Summary ---
Author Name Unknown Address [address] [place] [address] Phone Organization [facility] Address [address] [place] [address] Phone Care Team Providers Care Information Engineer Name Role Phone Unavailable Unavailable Unavailable Reason for Visit and Chief Complaint GENERAL OFFICE VISIT Plan of Treatment No Plan of Treatment Recorded Assessments Includes: Assessments from this encounter No Assessments Recorded Medical Equipment - Implanted Devices Includes: Current Devices No Medical Equipment Recorded Medications Administered Includes: Administered Medications from this encounter No Administered Medications Recorded Results Includes: Results discussed during this encounter No Results Recorded For Specified Dates History of Present Illness Includes: History of Present Illness from this encounter No History of Present Illness Recorded Social History No Social History Recorded - Smoking Status Unknown Medical History Includes: Medical History addressed during this encounter No Medical History Recorded Family History Includes: Family History addressed during this encounter No Family History Recorded Review of Systems Includes: Review of Systems from this encounter No Review of Systems Recorded Mental Status Includes: Mental Status from this encounter No Mental Status Recorded Functional Status Includes: Functional Status from this encounter No Functional Status Recorded Physical Exam Includes: Physical Exam from this encounter No Physical Exam Recorded Encounters Encounter Provider Location Date Check-In Time Check- Out Time Diagnosis GENERAL OFFICE VISIT [facility] 9 9:45AM 11:59PM Clinical Notes Includes: Clinical Notes from this encounter No Clinical Notes Recorded
--- OUTSIDE RECORDS SUMMARY | 2024-04-22 21:34 | XMS_ITS | Clinical Summary ---
Author Name Unknown Address [address] [place] [address] Phone Organization [facility] Address [address] [place] [address] Phone Care Team Providers Care Individual Pension Consultant Name Role Phone Unavailable Unavailable Unavailable Reason [...]
--- OUTSIDE RECORDS SUMMARY | 2024-04-22 21:34 | XMS_ITS | Clinical Summary ---
Author Name Unknown Address [address] [place] [address] Phone Organization [facility] Address [address] [place] [address] Phone Care Team Providers Care Supervisor Rod Placing Name Role Phone Unavailable Unavailable Unavailable Reason for Visit and Chief Complaint CERUMEN REMOVAL Plan of Treatment No Plan of Treatment [...] Encounters Encounter Provider Location Date Check-In Time Check-Out Time Diagnosis CERUMEN REMOVAL [facility] 1 9:00AM 11:59PM Clinical Notes Includes: Clinical Notes from this encounter No Clinical Notes Recorded
--- OUTSIDE RECORDS SUMMARY | 2024-04-22 21:34 | XMS_ITS | Clinical Summary ---
Author Name Unknown Address [address] [place] [address] Phone Organization [facility] Address [address] [place] [address] Phone Care Team Providers Care Audit Practice Intern Name Role Phone Unavailable Unavailable Unavailable Reason [...] Location Date Check-In Time Check-Out Time Diagnosis GENERAL OFFICE VISIT [facility] 0 1:14PM 11:59PM Clinical Notes Includes: Clinical Notes from this encounter No Clinical Notes Recorded
--- OUTSIDE RECORDS SUMMARY | 2024-04-22 21:34 | XMS_ITS ---
Author Name Unknown Address [address] [place] [address] Phone Organization [facility] Address [address] [place] [address] Phone Care Team Providers Care Machine Stapler Name Role Phone Unavailable Unavailable Unavailable Plan of Treatment No Plan of Treatment Recorded Assessments Includes: Assessments for all patient encounters No Assessments Recorded Medical Equipment - Implanted Devices Includes: Current and historical Devices No Medical Equipment Recorded Medications Administered Includes: Administered Medications in patient's chart No Administered Medications Recorded Results Includes: Results from 04/22/2023 through 04/22/2024 No Results Recorded For Specified Dates History of Present Illness History of Present Illness not supported for this document type No History of Present Illness Recorded Social History No Social History Recorded - Smoking Status Unknown Medical History Includes: Medical History in patient's chart No Medical History Recorded Family History Includes: Family History in patient's chart No Family History Recorded Review of Systems Review of Systems not supported for this document type No Review of Systems Recorded Mental Status No Mental Status Recorded Functional Status No Functional Status Recorded Physical Exam Physical Exam not supported for this document type No Physical Exam Recorded Clinical Notes Includes: Signed Clinical Notes starting from 07/27/2022 No Clinical Notes Recorded
[2024-04-22 22:25] VITALS: RESP 21
--- NOTE | 2024-04-22 22:43 | ADMGEN ---
This patient, Rufus Scanlon, was admitted to [facility] Surg Room 318-01. Patient/family oriented to hospital policies and general routines including ID bracelet, bed and alarms, visiting hours, pain management, procedures, bathroom and other care routines, personal items, smoking policy, room service/diet, and visiting hours. Information on how to activate the Rapid Response Team has been discussed. Patient/Family are encouraged to report perceived risks to care and to ask questions if they do not understand what they are told or what they should do.
--- NOTE | 2024-04-23 01:44 | PC.NURSE ---
This RN attempted to place an IV and pt refused. spreader attempted to place IV with ultrasound and was unsuccessful after 2 attempts. Pt refusing to let anyone else try at this time. Pt resting at this time. Will attempt IV in the morning.
[2024-04-23 03:05] VITALS: RESP 16
[2024-04-23 08:00] VITALS: BP 79/46; PULSE 46; RESP 16; TEMP 35.1; O2SAT 84; O2SAT 92
--- NOTE | 2024-04-23 08:41 | PCWOUND ---
WOCN NOTE Received notice of pressure wound. spoke to RN patient is hospice, no need for WOCN at this time.
--- NOTE | 2024-04-23 09:15 | PC.NURSE ---
Haroldo Garcia RN, at bedside.
--- NOTE | 2024-04-23 11:00 | PC.NURSE ---
Family at bedside. Patient denies needing medication for pain at this time.
--- NOTE | 2024-04-23 13:01 | PM.IMHP ---
H&P: HPI History of Present Illness Date/Time: 04/23/24 13:01 Chief Complaint: uncontrolled dyspnea Narrative: This 83-year-old gentleman was a resident of [facility] presented [facility] April 22 due to increasing dyspnea and confusion. Oxygen saturation was in the 70s at the longterm. EMS was called he was transported to the emergency department. There chest x-ray revealed small right pleural effusion and basilar atelectasis. EKG showed sinus rhythm with incomplete right bundle-branch block and nonspecific ST segment depression. O2 sat was 100% on BiPAP with supp oxygen at 50%. No further studies were done as family opted for comfort care on inpatient hospice service. He was hypotensive in remained hypotensive with blood pressure 104 initially in the ED but after BiPAP as low as 66 systolic and this morning 75 systolic. He did not tolerate the BiPAP well and wished to have it removed. He was on 6 L of oxygen by nasal cannula tolerated this well. He was a bit more confused than normal but oriented to person his sitter to person and place. Initially was started with IV morphine for dyspnea. However as he improved he pulled out his IV line. PRN morphine concentrate oral was ordered p.r.n.. However he requested none. He was hungry this morning and ate most of his breakfast. He does have generalized weakness and requires assistance with all ADLs but that is his baseline. Review of Systems Review of Systems: Denied pain or shortness of breath. Has chronic Noe catheter. Denied GI issues. States appetite is fairly good. All systems reviewed & are unremarkable except as noted in HPI and below PMFSH Past Medical History Medical History Acute CHF (congestive heart failure) Acute CVA (cerebrovascular accident) Anemia Atrial fibrillation Cataracts, bilateral CHF (congestive heart failure) Colon cancer Hyperlipidemia Hypertension Neuropathy Spinal stenosis Surgical History Surgical History History of hip replacement, total 4 times History of removal of pigmented skin lesion Family History Family History Sibling Heart failure Social History Social History (Updated 04/23/24 @ 13:02 by Austin White MD) Social History: The patient has two adopted children and is . He lives alone. Currently living at [facility]. 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 Code status DNR Smoking status: Never smoker Alcohol intake: never Substance use: never Substance use type: does not use Do You Feel Safe in your Home?: Yes Lack of Transportation: No Lack of Food: Never True Current Housing: I Have Housing Concerned About Future Housing: No Difficulty Paying Gas/Electric Bills: No Difficulty Paying for Meds: No Currently Unemployed: No Education: Master's Degree or Higher Difficulty w/ Childcare or Family Care: No Spiritual care concerns: No Meds Home Medications and Allergies Home Medications Medication Instructions Recorded Confirmed Type diltiazem HCl 360 mg 360 mg PO DAILY 09/18/22 04/23/24 History capsule,extended release 24 hr (Cardizem CD) gabapentin 400 mg capsule 400 mg PO TID 09/18/22 04/22/24 History metoprolol succinate 25 mg 25 mg PO DAILY PRN HR over 100 09/18/22 04/23/24 History tablet,extended release 24 hr atorvastatin 40 mg tablet 40 mg PO HS #30 tabs 10/08/22 04/22/24 Rx dabigatran etexilate 150 mg 150 mg PO BID 06/28/23 04/22/24 History capsule (Pradaxa) famotidine 40 mg tablet 40 mg PO DAILY 06/28/23 04/22/24 History ondansetron 4 mg disintegrating 4 mg PO DAILY 06/28/23 04/22/24 History tablet albuterol sulfate 2.5 mg/3 mL 2.5 mg (3 mL) inhalation Q6HRT PRN 07/05/23 04/22/24 Rx (0.083 %) solution for nebulization Shortness Of Breath #30
--- NOTE | 2024-04-23 13:46 | PC.NURSE ---
Telephone report given to Vero Hodge RN.
--- NOTE | 2024-04-23 13:49 | PM.DS ---
DS: Admitting Diagnosis Discharge Date 04/23/2024 Admitting Diagnosis acute respiratory failure with hypoxemia DS: Discharge Diagnosis Discharge Diagnosis (1) Hospice care: Code(s): Z51.5 - Encounter for palliative care Status: Acute Assessment and Plan: Although he initially met inpatient hospice criteria, he improved with adequate oxygenation and is no longer requiring IV opioids for control of dyspnea. After discussion with patient and family at bedside it was decided to continue hospice care at his home in [place]. Discussed with member of technical staff, hospice nurse, and district manager primary care sales. (2) CHF (congestive heart failure): Code(s): I50.9 - Heart failure, unspecified Status: Acute Assessment and Plan: No sign of decompensation by x-ray or exam (3) CLARISSA (obstructive sleep apnea): Code(s): G47.33 - Obstructive sleep apnea (adult) (pediatric) Status: Acute Assessment and Plan: Continue nasal cannula oxygen during the day and BiPAP at night with oxygen bleed in (4) Acute on chronic respiratory failure with hypoxemia: Code(s): J96.21 - Acute and chronic respiratory failure with hypoxia Status: Acute Assessment and Plan: Etiology unclear Family does not wish to pursue further evaluation DS: Summary Hospital Course Hospital Course: This 83-year-old gentleman was a resident of [facility] presented [facility] April 22 due to increasing dyspnea and confusion. Oxygen saturation was in the 70s at the half-way. EMS was called he was transported to the emergency department. There chest x-ray revealed small right pleural effusion and basilar atelectasis. EKG showed sinus rhythm with incomplete right bundle-branch block and nonspecific ST segment depression. O2 sat was 100% on BiPAP with supp oxygen at 50%. No further studies were done as family opted for comfort care on inpatient hospice service. He was hypotensive in remained hypotensive with blood pressure 104 initially in the ED but after BiPAP as low as 66 systolic and this morning 75 systolic. He did not tolerate the BiPAP well and wished to have it removed. He was on 6 L of oxygen by nasal cannula tolerated this well. He was a bit more confused than normal but oriented to person his sitter to person and place. Initially was started with IV morphine for dyspnea. However as he improved he pulled out his IV line. PRN morphine concentrate oral was ordered p.r.n.. However he requested none. He was hungry this morning and ate most of his breakfast. He does have generalized weakness and requires assistance with all ADLs but that is his baseline. Time Spent with Patient Time attestation: Total time spent providing and/or coordinating discharge services: Exam Narrative: General morbidly obese elderly gentleman in no acute distress is lying comfortably in hospital bed. Head normocephalic. Eyes pupils equal round reactive to light. Extraocular movements intact. Sclerae nonicteric. Oral mucosa pink and intact. Neck without JVD. Without thyromegaly. Chest diminished breath sounds at bases otherwise clear to auscultation with normal effort. Heart normal S1 and S2 with rate regular and audible clicks gallops murmurs or rubs. Extremities 3+ pitting edema of legs and feet. Left leg fluids and right with mild cyanosis of great toes worse on the left. Musculoskeletal no gross deformities visual inspection. Neurologic cranial nerves symmetric to vision inspection. Psychiatric alert. Oriented to person. Pleasant and cooperative. Discharge Plan Discharge Discharging Clinician: Austin White Patient Disposition: Hospice - Medical Facility Activity: other - see discharge instructions Diet: as tolerated Discharge Instructions: Bedrest, reposition every 2 hours. Oxygen at 6 LPM by nasal cannula during the day. BiPap at home settings with oxygen bleed in at 50
== END 2024-04-23 17:20 | disposition hospice, home (50) | DRG 951 ==
PROVIDERS: Admitting Provider Internal Medicine; PCP Family Medicine; Visit Provider Nurse Practitioner Acute Care
DX: Z51.5 Encounter for palliative care (principal); J96.21 Acute and chronic respiratory failure with hypoxia; J90 Pleural effusion, not elsewhere classified; J98.11 Atelectasis; G47.33 Obstructive sleep apnea (adult) (pediatric); I50.9 Heart failure, unspecified; I11.0 Hypertensive heart disease with heart failure; D64.9 Anemia, unspecified; I48.91 Unspecified atrial fibrillation; G62.9 Polyneuropathy, unspecified; M48.00 Spinal stenosis, site unspecified; Z96.649 Presence of unspecified artificial hip joint; Z86.73 Personal history of transient ischemic attack (TIA), and cerebral infarction without residual deficits; Z66 Do not resuscitate; Z85.038 Personal history of other malignant neoplasm of large intestine; I95.9 Hypotension, unspecified
CPT/HCPCS: 94002; A9270